=== PATIENT | female | born 1950 | race Hispanic/Latino ===

== ENCOUNTER 2016-11-18 04:40 | Inpatient (IN) | payer OTHER ==
[2016-11-18] VITALS (9 sets, daily range): BP systolic 82–122; BP diastolic 50–64
[~2016-11-18] VITALS: Ht 162.6 cm; Wt 77.1 kg
[~2016-11-18 04:40] MED LIST: COUMADIN 4MG TAB4 MG PO; COUMADIN5 M2 PO; DILAUDID2 MG PO; FOLIC ACID1 M1 PO; GLUCOPHAGE1000 M1 PO; HYDROCORTI2.5 %/30 G TOP; IBUPROFEN800 MG PO; LEVEMIR100 UNIT/1 SC; LEVOTHYROXIN0.025 M1 PO; MACROBID100 MG PO; METFORMIN1000 MG PO; METHOTREXATE2.5 M2 PO; METHOTREXATE2.5 MG PO; NITROFURANTOIN100 MG PO; PANTOPRAZOLE SO40 MG PO; PERCOCET 325 MG1 TAB PO; PREDNISONE5 MG PO; PROCTOCREAM-HC2.5% TOP; SENOKOT NATURA8.6 MG PO; SMZ-TMP 800 MG-1 TAB PO; WARFARIN SODIUM5 MG PO
[2016-11-18] MEDS ORDERED: LISINOPRIL5 M1 PO (04:58)
[2016-11-18] MEDS ORDERED: LEVOTHYROXINE25 MCG PO (04:59)
--- NOTE | 2016-11-18 05:10 | ED GI/GU/ABDOMINAL COMPLAINT ---
History of Present Illness General Chief Complaint: Abdominal Pain/Flank Pain Stated Complaint: ABD PAIN ? KIDNEY STONES Source: patient, old records, EMS Exam Limitations: no limitations Vital Signs & Intake/Output Vital Signs & Intake/Output Vital Signs Date Time Temp Pulse Resp B/P Pulse O2 O2 Flow FiO2 Ox Delivery Rate 11/18 0802 102.0 125 19 130/64 95 Nasal 2.0L Cannula 11/18 0645 100.3 116 24 151/66 98 11/18 0445 97.9 59 22 116/69 100 Room Air Allergies Coded Allergies: Cephalosporins (FACIAL RASH 01/29/16) Penicillins (VOMITING 11/18/16) Reconcile Medications Folic Acid 1 MG TABLET 1 MG PO DAILY FOLIC ACID SUPPLEMENT (Reported) Ibuprofen 600 MG TABLET 1 TAB PO Q6P PRN PAIN with food Insulin Detemir (Levemir) 100 U/ML ED 35 UNITS SC QPM BLOOD SUGAR (Reported) Levothyroxine Sodium 0.025 MG TAB 0.025 MG PO DAILY AC THYROID (Reported) Levothyroxine Sodium 25 MCG TABLET 1 TAB PO DAILY THYROID (Reported) Lisinopril 5 MG TABLET 1 TAB PO DAILY HTN (Reported) METFORMIN HCL (Metformin) 1,000 MG TABLET 1 TAB PO BID DIABETES (Reported) Methotrexate 2.5 MG TABLET 6 TAB PO QW RA (Reported) Oxycodone HCl/Acetaminophen (Percocet 5-325 MG Tablet) 5 MG-325 MG TABLET 1-2 TAB PO Q6P PRN pain Prednisone 5 MG TAB 1 TAB PO BID RA Tamsulosin HCl (Flomax) 0.4 MG CAP.ER.24H 1 CAP PO DAILY kidney stone Warfarin Sodium (Coumadin) 4 MG TAB 1 TAB PO DAILY BLOOD THINNER Warfarin Sodium (Coumadin) 5 MG TABLET 1 TAB PO DAILY PE Triage Note: PER PT SUDEEN ONSET RT FLANK PAIN, AWOKE FROM SLEEP VOMITTED X 1 DENIES ANURIA, PT WITH HX OF KIDNEY STONES. Triage Nurses Notes Reviewed? yes ? n Is pt currently ? No HPI: Patient presents for evaluation of severe left flank pain radiating to the left groin that began suddenly prior to arrival. Patient states it is a constant severe throbbing and sharp pain similar to her prior kidney stone. She denies any associated dysuria. She has felt nauseous and did vomit prior to arrival. Nothing seems to make her feel better. (JONAS THOMPSON,DEANDRE Jett) Past History Travel History Traveled to [place] past 21 day No Medical History Any Pertinent Medical History? see below for history Neurological: NONE EENT: NONE Cardiovascular: NONE Respiratory: pulmonary embolism Gastrointestinal: GERD Hepatic: NONE Renal: KIDNEY STONES Musculoskeletal: rheumatoid arthritis Psychiatric: NONE Endocrine: hypothyroidism, IDDM History of MRSA: No History of VRE: No History of CDIFF: No Surgical History Surgical History: LITHOTRIPSY CARDIAC CATHETERIZATION 11/2014 - IN [place], [place] ( NORMAL) Psychosocial History Services at Home None What is your primary language Japanese Tobacco Use: Never used Family History Hx Contributory? No (JONAS THOMPSON,DEANDRE Jett) Review of Systems Review of Systems Constitutional: Reports: no symptoms. EENTM: Reports: no symptoms. Respiratory: Reports: no symptoms. Cardiovascular: Reports: no symptoms. GI: Reports: see HPI. Genitourinary: Reports: no symptoms. Musculoskeletal: Reports: no symptoms. Skin: Reports: no symptoms. Neurological/Psychological: Reports: no symptoms. Hematologic/Endocrine: Reports: no symptoms. Immunologic/Allergic: Reports: no symptoms. All Other Systems: Reviewed and Negative (JONAS THOMPSON,DEANDRE Jett) Physical Exam Physical Exam Gastrointestinal: see below Comments: Gen.: Well-nourished, well-developed, no acute respiratory distress. Moderate to severe distress secondary to left flank pain. Head: Normocephalic, atraumatic. Eyes: Normal inspection bilaterally Ears: Normal inspection bilaterally Nose: Normal inspection Throat/mouth : Moist mucosa Neck: Supple, full range of motion, no goiter Heart: Regular rate and rhythm, no murmurs rubs or gallops Lungs: Clear to auscultation bilaterally with normal air entry Chest: Nontender Back: Normal range of motion, left CVAT Abdomen: Soft, nontender, nondistended, normal bowel sounds Extremities: Normal range of motion grossly, equal radial pulses, no cyanosis clubbing or edema Neurologic: Cranial nerves grossly intact, speech is clear Skin: warm and dry Psychiatric: Calm, cooperative, no apparent delusions or hallucinations Core Measures ACS in differential dx? No Severe Sepsis Present: No Septic Shock Present: No (DEANDRE VARELA MD) Progress Differential Diagnosis: kidney stone, UTI/pyelo Plan of Care: Orders Procedure Date/time Status LACTIC ACID 11/18 1033 Active LACTIC ACID 11/18 1023 Active Patient Data 11/18 0747 Active FingerStick- Glucose 11/18 0741 Active Admit to inpatient 11/18 0738 Active LACTIC ACID 11/18 0733 Complete LACTIC ACID 11/18 0723 Active EKG 11/18 0705 Active BLOOD CULTURE 11/18 0655 Active BLOOD CULTURE 11/18 0654 Active Add-on Test (ER Only) 11/18 0653 Active Intake & Output 11/18 0652 Active CULTURE,URINE 11/18 0640 Active URINALYSIS 11/18 0509 Complete CBC WITHOUT DIFFERENTIAL 11/18 0509 Complete BASIC METABOLIC PANEL 11/18 0509 Complete Laboratory Tests 11/18/16 0735: Lactic Acid 5.5 H 11/18/16 0735: Anion Gap 15, Estimated GFR > 60, BUN/Creatinine Ratio 14.4, Glucose 125 H, Calcium 8.9 11/18/16 0640: Urine Color YEL, Urine Clarity HAZY H, Urine pH 6.5, Ur Specific [place] 1.015, Urine Protein NEG, Urine Ketones NEG, Urine Nitrite POS H, Urine Bilirubin NEG, Urine Urobilinogen 0.2, Ur Leukocyte Esterase LARGE H, Ur Microscopic SEDIMENT EXAMINED, Urine RBC 3-5, Urine WBC 15-25 H, Ur Epithelial Cells MANY H, Urine Hemoglobin TRACE-INTACT, Urine Glucose NEG 11/18/16 0545: CBC w Diff MAN DIFF ORDERED, RBC 4.35, MCV 93.1, MCH 30.6, RDW 15.0 H, MPV 8.1, Gran % 92.2 H, Lymphocytes % 4.2 L, Monocytes % 3.4, Eosinophils % 0.1, Basophils % 0.1, Absolute Granulocytes 17.3 H, Absolute Lymphocytes 0.8 L, Absolute Monocytes 0.6, Absolute Eosinophils 0, Absolute Basophils 0, Platelet Estimate ADEQUATE, Normocytic RBCs VERIFIED, Normochromic RBCs VERIFIED, PUBS MCHC 32.9 L Microbiology 11/18 0707 BLOOD: Blood Culture - RECD 11/18 652 BLOOD: Blood Culture - CAN Cancelled: DUPLICATE 11/18 652 BLOOD: Blood Culture - CAN Cancelled: DUPLICATE 11/18 0650 BLOOD: Blood Culture - RECD 11/18 639 URINE ROUT: Urine Culture - RECD Diagnostic Imaging: Discussed w/RAD: CT Scan. Radiology Impression: OBSTRUCTING PROXIMAL 5 MM STONE Initial ED EKG: none Comments: 11/18/2016 7:23:31 AM as patient was being prepared for discharge she suddenly began complaining of shaking chills and shortness of breath. Urinalysis is convincing for urinary tract infection and given the fact the patient has an obstructive 5 mm stone I have contacted Dr. Navas will take her to the OR for stenting. The hospitalist is being paged. I've signed out to Dr. Robles. (JONAS THOMPSON,DEANDRE Jett) Departure Departure Condition: Stable Clinical Impression Primary Impression: Renal colic on left side Referrals: ROYCE DRAKE MD (PCP/Family) MOLLY NAVAS MD Additional Instructions: Percocet as needed for pain. Follow-up with your urologist or Dr. Navas on Saturday for reevaluation. Flomax as prescribed. Notify your primary care doctor of this emergency department visit and treatment plan. Return if any concerns or sudden worsening. Please note that there might be incidental findings in your evaluation that are unrelated to the current emergency department visit. Please notify your primary care doctor about this emergency department visit in order to obtain and review all of the testing performed so that these incidental findings can be monitored as needed. If you had an x-ray performed, please understand that some fractures may not be seen on the initial set of x-rays. If your symptoms persist you might need a repeat set of x-rays to check for such a fracture. If you had a laceration evaluated, please understand that foreign bodies such as glass or wood may not be visible to the naked eye or on plain x-rays. If the wound becomes red, swollen, increasingly more painful or if there is any drainage from the wound, please have it reevaluated by a physician for the possibility of a retained foreign body. Thank you for choosing the [facility] Emergency Department for your care. It was a pleasure to serve you today. Deandre Varela M.D. [facility] Departure Forms: Customer Survey General Discharge Information Prescriptions: Current Visit Scripts Oxycodone HCl/Acetaminophen (Percocet 5-325 MG Tablet) 1-2 TAB PO Q6P PRN pain #20 TAB Ibuprofen 1 TAB PO Q6P PRN PAIN #20 TAB with food Tamsulosin HCl (Flomax) 1 CAP PO DAILY #7 CAP Admission Note Spoke With: AURA REY M.D Documentation of Exam: Documentation of any treatments & extenuating circumstances including Concerns Regarding Discharge (functional status, medication knowledge or non-compliance, living conditions, etc.) that warrant an admission rather than observation: Patient has an infected obstructing left ureteral stone. She has a history of diabetes and is at very high risk of overwhelming sepsis and . She requires an emergent stenting to decompress her hydronephrosis and hydroureter. She requires aggressive management with IV antibiotics to prevent deterioration of her clinical condition. She is having severe pain secondary to renal colic and I believe that she would be a poor candidate for outpatient management under the circumstances. I feel she would have great trouble in complying with outpatient treatment plan. She would likely return in worse clinical condition. Given her medical comorbidities I feel she will require a multiple day hospitalization, I feel her treatment and recovery will likely be prolonged and complicated. (JONAS THOMPSON,DEANDRE Jett) Departure Disposition: STILL A PATIENT (HUGH THOMPSON,PASQUALE Kelsey) Critical Care Note Critical Care Note Critical Care Time: 30-74 min (JONAS THOMPSON,DEANDRE Jett)
[2016-11-18 05:54] LABS: ABSOLUTE BASOPHIL COUNT 0 /CUMM (0.0-0.2); ABSOLUTE EOSINOPHIL COUNT 0 /CUMM (0.0-0.7); ABSOLUTE GRANULOCYTE CT 17.3 /CUMM (1.4-6.5); ABSOLUTE LYMPH COUNT 0.8 /CUMM (1.2-3.4); ABSOLUTE MONOCYTE COUNT 0.6 /CUMM (0.10-0.60); BASOPHIL % 0.1 % (0.0-2.0); EOSINOPHIL % 0.1 % (0-5); GRANULOCYTE % 92.2 % (42.2-75.2); HEMATOCRIT 40.5 % (37-47); MEAN CORPUSCULAR HGB 30.6 PG (27.0-31.0); MEAN CORPUSCULAR HGB CONC 32.9 G/DL (33.0-37.0); MEAN CORPUSCULAR VOLUME 93.1 FL (81.0-99.0); MEAN PLATELET VOLUME 8.1 FL (7.4-10.4); PLATELET COUNT 354 /CUMM (130-400); RED BLOOD CELL CT 4.35 /CUMM (4.20-5.40); WHITE BLOOD CELL COUNT 18.8 /CUMM (4.8-10.8)
--- NOTE | 2016-11-18 06:17 | CT SCAN REPORT ---
EXAMINATION: CT ABDOMEN AND PELVIS WITHOUT CONTRAST CLINICAL INFORMATION: Left-sided flank pain. COMPARISON: None TECHNIQUE: Multidetector volumetric imaging was performed from the superior aspect of the liver through the pubic symphysis. Sagittal and coronal reformatted images were obtained on the technologist's workstation. FINDINGS: There is a 5 mm obstructing calculus within the proximal third of the left ureter at the L4 level that results in moderate left-sided hydroureteronephrosis. No additional ureteral calculi. There are innumerable several millimeter calculi throughout the right and left kidneys. Right upper pole renal cyst. 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 There is diffuse hepatic steatosis. There is focal prominence of the left portal vein on image 26 of series 2 suggesting a varix. Limited evaluation of the unenhanced spleen, adrenal glands, gallbladder, and pancreas reveals no definite abnormality. The large and small bowel are normal in caliber without evidence of mechanical obstruction. Sigmoid diverticulosis. No acute diverticulitis. No focal inflammatory changes adjacent to the large or the small bowel. The appendix is normal. There is no free air and there is no intra-abdominal free fluid. No mesenteric or retroperitoneal adenopathy. The pelvic viscera are normal. No pelvic adenopathy. No free fluid within the pelvis. There are no acute osseous abnormalities. No significant soft tissue abnormality. IMPRESSION: - There is a 5 mm obstructing calculus within the proximal third of the left ureter at the L4 level that results in moderate left-sided hydroureteronephrosis. There are innumerable several millimeter calculi throughout the right and left kidneys. - Hepatic steatosis. There is focal prominence of the left portal vein on image 26 of series 2 suggesting a varix. - UIP pattern chronic interstitial lung disease at the lung bases.
[2016-11-18] MEDS ORDERED: PERCOCET 5-3251 EACH PO (06:26)
[2016-11-18] MEDS ORDERED: IBUPROFEN600 M1 PO (06:26)
[2016-11-18] MEDS ORDERED: FLOMAX0.4 M1 PO (06:28)
--- NOTE | 2016-11-18 08:21 | History & Physical ---
ROGER BUCIO 11/18/16 0815: General Information and HPI MD Statement: I have seen and personally examined JEFF CHIN and documented this H&P. The patient is a 66 year old F who presented with a patient stated chief complaint of [complicated UTI]. Source of Information: patient, old records Exam Limitations: no limitations History of Present Illness: Patient is a 66-year-old woman was BIBA w/ CCx of left sided flank pain.Patient has a significant Hx of recurrent UTIs in the past, most recently was in [facility] (03/24-03/25/2015) for it. She was diagnosed w/ an uncomplicated cyctitis and was d/c home on Nitrofurantoin for x7 days. Patient reports a progressive LL ABdx and Left flank pain, which was started yesterday. According to patient this episode was preceded by a few days of increasing frequency of urination and nocturia (3-4 times during night). Patient denies any dysuria or change in color of her urine however she notices changing smell of her urine initially, yesterday, pain is started as sharp/throbbing, intermittent (Q20 min), 4-5 out of 10 on pain scale, without radiation. Patient felt slightly nauseous but did not vomit by that time and she remained afebrile and without shaking chills at the beginning. The frequency and intensity of pain worsened over time and after a few hours patient described a severe 10 out of 10 pain in the left lower quadrant, with much shorter interval between episodes of pain, she started feeling nauseous and vomited clear fluids once or twice, she also became febrile (did not check the temperature) and had episodes of shaking chills and cold sweats. Patient denies any chest pain, shortness of breath, lightheadedness, confusion. She called ambulance as a transfer to emergency room. After initial hydration and IV antibiotics therapy patient had an abdominal pelvic CT scan which showed multiple obstructive and nonobstructive nephrolithiasis in addition to severe leukocytosis and fever. Patient was transferred to operating room for urgent intravitreal stent placements and kidney decompression. Medical team interviewed the patient presents respectively after she was transferred to medical floor from PACU. Of note, she past medical history significant for rheumatoid arthritis on prednisone and MTX, pulmonary embolism on Eliquis, type 2 diabetes mellitus, hypothyroidism. Patient lives with her family. Independent. Current smoker half a pack per day for 50 years no official diagnosis of COPD. According to patient's her daughter has history of recurrent nephrolithiasis. Allergies/Medications Allergies: Coded Allergies: Cephalosporins (FACIAL RASH 01/29/16) Penicillins (VOMITING 11/18/16) Home Med list Apixaban (Eliquis) 5 MG TABLET 1 TAB PO BID PE Folic Acid 1 MG TABLET 1 MG PO DAILY FOLIC ACID SUPPLEMENT (Reported) Ibuprofen 600 MG TABLET 1 TAB PO Q6P PRN PAIN with food Insulin Detemir (Levemir) 100 UNIT/ML VIAL 35 U SC BID DM (Reported) Levothyroxine Sodium 25 MCG TABLET 1 TAB PO DAILY THYROID (Reported) Lisinopril 5 MG TABLET 1 TAB PO DAILY HTN (Reported) METFORMIN HCL (Metformin) 1,000 MG TABLET 1 TAB PO BID DIABETES (Reported) Methotrexate 2.5 MG TABLET 6 TAB PO QW RA (Reported) Oxycodone HCl/Acetaminophen (Percocet 5-325 MG Tablet) 5 MG-325 MG TABLET 1-2 TAB PO Q6P PRN pain Prednisone 5 MG TABLET 2 TAB PO DAILY RA Tamsulosin HCl (Flomax) 0.4 MG CAP.ER.24H 1 CAP PO DAILY kidney stone Compliance With Home Meds: GOOD Past History Travel History Traveled to [place] past 21 day No Medical History Neurological: NONE EENT: NONE Cardiovascular: NONE Respiratory: pulmonary embolism Gastrointestinal: GERD Hepatic: NONE Renal: KIDNEY STONES Musculoskeletal: rheumatoid arthritis Psychiatric: NONE Endocrine: hypothyroidism, IDDM History of MRSA: No History of VRE: No History of CDIFF: No Surgical History Surgical History: LITHOTRIPSY CARDIAC CATHETERIZATION 11/2014 - IN [place], [place] ( NORMAL) Past Family/Social History Psychosocial History Where do you live? Home Who Do You Live With? spouse, child Services at Home: None Primary Language: Slovenian Smoking Status: Current Everyday Smoker ETOH Use: denies use Functional Ability ADLs Independent: dressing, eating, toileting, bathing. Ambulation: independent IADLs Independent: shopping, housework, finances, food prep, telephone, transportation , medication admin. Review of Systems Review of Systems Constitutional: Reports: see HPI. EENTM: Reports: no symptoms. Cardiovascular: Reports: no symptoms. Respiratory: Reports: no symptoms. GI: Reports: no symptoms. Genitourinary: Reports: frequency, nocturia. Denies: see HPI, discharge, dysuria, hematuria, hesitation, pain, urgency. Musculoskeletal: Reports: see HPI, back pain. Denies: gout, joint pain, joint swelling, muscle pain, muscle stiffness, neck pain. Skin: Reports: no symptoms. Neurological/Psychological: Reports: no symptoms. All Other Systems: Reviewed and Negative Exam & Diagnostic Data Last 24 Hrs of Vital Signs/I&O Vital Signs Date Time Temp Pulse Resp B/P Pulse O2 O2 Flow FiO2 Ox Delivery Rate 11/18 1100 97.7 101 22 90/52 95 Room Air 11/18 0802 102.0 125 19 130/64 95 Nasal 2.0L Cannula 11/18 0645 100.3 116 24 151/66 98 11/18 0445 97.9 59 22 116/69 100 Room Air Intake & Output 11/18 1600 11/18 0800 11/18 0000 Intake Total 1000 Output Total 75 Balance 925 Intake, IV 1000 Output, Urine 75 Patient 155 lb Weight Physical Exam General Appearance Alert, Oriented X3, Cooperative, No Acute Distress Skin No Rashes, No Breakdown, No Significant Lesion HEENT Atraumatic, PERRLA, EOMI, mucous membranes are dry Neck No JVD Lymphatic Axillary nl, Cervical nl Cardiovascular Normal S1, Normal S2, No Murmurs Lungs Clear to Auscultation, Normal Air Movement Abdomen left lower quadrant tenderness, no guarding no rebound, left costovertebral angle tenderness Neurological Normal Speech, Strength at 5/5 X4 Ext, Normal Tone Extremities No Cyanosis, No Edema Vascular Normal Pulses, Pulses Symmetrical Last 24 Hrs of Labs/Jarett: Laboratory Tests 11/18/16 1230: Lactic Acid Pending 11/18/16 0735: Lactic Acid 5.5 H 11/18/16 0735: Anion Gap 15, Estimated GFR > 60, BUN/Creatinine Ratio 14.4, Glucose 125 H, Calcium 8.9 11/18/16 0640: Urine Color YEL, Urine Clarity HAZY H, Urine pH 6.5, Ur Specific [place] 1.015, Urine Protein NEG, Urine Ketones NEG, Urine Nitrite POS H, Urine Bilirubin NEG, Urine Urobilinogen 0.2, Ur Leukocyte Esterase LARGE H, Ur Microscopic SEDIMENT EXAMINED, Urine RBC 3-5, Urine WBC 15-25 H, Ur Epithelial Cells MANY H, Urine Hemoglobin TRACE-INTACT, Urine Glucose NEG 11/18/16 0545: CBC w Diff MAN DIFF ORDERED, RBC 4.35, MCV 93.1, MCH 30.6, RDW 15.0 H, MPV 8.1, Gran % 92.2 H, Lymphocytes % 4.2 L, Monocytes % 3.4, Eosinophils % 0.1, Basophils % 0.1, Absolute Granulocytes 17.3 H, Absolute Lymphocytes 0.8 L, Absolute Monocytes 0.6, Absolute Eosinophils 0, Absolute Basophils 0, Platelet Estimate ADEQUATE, Normocytic RBCs VERIFIED, Normochromic RBCs VERIFIED, PUBS MCHC 32.9 L Microbiology 11/18 07 BLOOD: Blood Culture - RECD 11/18 652 BLOOD: Blood Culture - CAN Cancelled: DUPLICATE 11/18 652 BLOOD: Blood Culture - CAN Cancelled: DUPLICATE 11/18 649 BLOOD: Blood Culture - RECD 11/18 639 URINE ROUT: Urine Culture - RECD Assessment/Plan Assessment: 66-year-old woman was admitted for complicated pyelonephritis secondary to obstructive nephrolithiasis. VS: 90/52/101/22 Pertinent Data SOFA: score [address] w/o contrast: There is a 5 mm obstructing calculus within the proximal third of the left ureter at the L4 level that results in moderate left-sided hydroureteronephrosis. WBC: 18.8 NO band BEP: pending LA: 5.5 U/A:WBC, poor quality, Nitrate: + List of Acive probloems 1) sepsis of urinary origin: Patient has low sofa score. However she has significant elevation of white BC and temperature and has low blood pressure which persistently runs a systolic of 90s. The list of differential diagnosis for this patient: Sepsis of urinary origin and or secondary adrenal insufficiency due to prolonged prednisone therapy and or severe dehydration due to increase insensible water loss and poor by mouth intake. * Admit to * Continue IV hydration with normal saline 175 mL per hour X 2 bags; goal to keep mean arterial blood pressure above 70 * Check vital signs every 30 minutes * Stress dose of IV Solu-Cortef 100 mg once and then continue by mouth prednisone 10 mg daily * IV antibiotic ceftriaxone 1 g daily-patient has a history of UTI with Escherichia coli sensitive to ceftriaxone * Follow-up microbiology results blood culture and urine culture * Trends lactic acid initial 5.5 possibly due to sepsis or dehydration or combination of both 2) Diabetes mellitus * Accu-Check * Insulin Levemir 35 units twice a day * Insulin aspart sliding scale medium dose before meals and at bedtime * Carbohydrate consistent diet * Lisinopril 5 mg for kidney protection-indication was held due to hypotension 3) Hypothyroidism- continue her home dose of Synthroid 4)Rheumatoid arthritis-under treatment with by mouth prednisone 10 mg daily and methotrexate 15 mg per week. Prolonged treatment with 10 mg of prednisone might have caused adrenal insufficiency that could explain this patient's hypotension/ contributed to this patient's hypotension. * Continue by mouth prednisone 10 mg daily * Might benefit from a stress dose IV Solu-Cortef 100 mg once-if persistently has low runs of blood pressure 4) history of pulmonary embolism on anticoagulation Eliquis * Eliquis was held for extracorporal shock lithotripsy on Saturday with Dr. Navas * Follow-up with Dr. Navas postprocedure regarding restarting anticoagulation 5) Nicotine dependance- nicotine patch 14 mg q24 DVT prophylaxis-Lovenox 40 units subcutaneous daily Pain pathway mild and severe Patient is a full code As Ranked By This Provider Problem List: 1. Urinary tract infection Core Measures/Miscellaneous Acute Coronary Syndrome ACS Diagnosis: No Cerebrovascular Accident CVA/TIA Diagnosis: No Congestive Heart Failure CHF Diagnosis: No Venous Thromboembolism VTE Risk Factors: Acute medical illness, Age > 40, Obesity, Previous VTE, Smoking VTE Prophylaxis Ordered Inpt: Mech & Pharm No Mech VTE prophylaxis d/t: No contraindications No VTE Pharm Prophylaxis d/t: No contraindications VTE Diagnosis: No VTE Type: NONE VTE Confirmed by (Test): NONE Severe Sepsis Severe Sepsis Present: No Septic Shock Septic Shock Present: No Miscellaneous Documentation Attending Case Discussed With: AURA REY M.D Primary Care Physician: DEVONTE DRAKE MDEETHA Patient 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 Specialists 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 clerk Level of Patient Care: General Medicine Resident Review Statement Resident Statement: examined this patient, discussed with management retail intern, agreed with management retail intern, discussed with family, reviewed EMR data (avail), discussed with nursing , discussed with case mgmt, reviewed images, amended to note AURA REY MD 11/18/16 1422: Attending MD Review Statement Attending Statement Attending MD Statement: examined this patient, discuss w/resident/PA/PRODUCTION TECHNICIAN, agreed w/resident/PA/PRODUCTION TECHNICIAN, reviewed EMR data (avail), discussed with nursing, discussed with case mgmt, amended to note Attending Assessment/Plan: 5 his 6-year-old female with history of recurrent UTIs and nephrolithiasis presented to the emergency room today with complaints of flank pain that began yesterday. Imaging revealed obstructing left renal stone. No significant to the warmer by Dr. Navas and ureteral stent was placed today without complications. Postoperatively however she has become hypotensive with systolic blood pressure is lower 70. Laboratory data shows an elevated white count at mildly elevated lactic acid level. Significant in her history is rheumatoid arthritis for which she is on chronic therapy with prednisone 10 mg daily. It is likely that her current hypotensive episode is a combination of sepsis and adrenal insufficiency. Her history is also significant for pulmonary embolism which is on anticoagulation therapy. She denies any chest or shortness of breath. She is not hypoxic. She denies lower extremity swelling or cramping. Denies nausea vomiting. Denies abdominal pain. Tolerating her meals. On examination she is alert and oriented 3. She does not appear to be in any distress. She has mild left flank tenderness. She has no extremity swelling. Problems: 1. Hypertension; likely secondary to combination of sepsis and adrenal insufficiency. 2. Obstructing left nephrolithiasis. 3. History of rheumatoid arthritis 4. History of pulmonary embolism on long-term and cognition therapy with Eliquis Plan: -Fluid resuscitation with normal saline at 1000 mL an hour for 2 L. -Administer stress dose steroid therapy with Hydrocortisone 100 mg IV 1 now and then 50 mg IV every 8 hours. -If patient remains hypotensive after both would recommend further management in intensive care unit. -Follow blood and urine cultures. -She is plan for the 2 strips he later on this week by the urology service. Recommendations are to hold and cognition therapy for now. Provide DVT prophylaxis with low molecular weight heparin and bilateral compression devices.
--- NOTE | 2016-11-18 09:24 | Cons- Urology ---
General Information and HPI Consulting Request Date of Consult: 11/18/16 Requested By: AURA REY M.D Reason for Consult: obstructed and septic left kidney Source of Information: patient, old records Exam Limitations: no limitations History of Present Illness: 66-year-old woman with hypothyroidism, diabetes, and history of kidney stones. Presented to the emergency room with severe left renal colic. CT scan was performed revealing bilateral kidney stones and an obstructing left ureter stone with hydronephrosis. The patient's pain management was sufficient for discharge home, however, the patient developed spiking temperature chills on discharge. She subsequently removed quires stent and admission for sepsis. Risks benefits and alternatives were discussed with the patient regarding the stent, and subsequent ESWL. She wishes to proceed. Allergies/Medications Allergies: Coded Allergies: Cephalosporins (FACIAL RASH 01/29/16) Penicillins (VOMITING 11/18/16) Home Med List: Folic Acid 1 MG TABLET 1 MG PO DAILY FOLIC ACID SUPPLEMENT (Reported) Ibuprofen 600 MG TABLET 1 TAB PO Q6P PRN PAIN with food Insulin Detemir (Levemir) 100 U/ML ED 35 UNITS SC QPM BLOOD SUGAR (Reported) Levothyroxine Sodium 0.025 MG TAB 0.025 MG PO DAILY AC THYROID (Reported) Levothyroxine Sodium 25 MCG TABLET 1 TAB PO DAILY THYROID (Reported) Lisinopril 5 MG TABLET 1 TAB PO DAILY HTN (Reported) METFORMIN HCL (Metformin) 1,000 MG TABLET 1 TAB PO BID DIABETES (Reported) Methotrexate 2.5 MG TABLET 6 TAB PO QW RA (Reported) Oxycodone HCl/Acetaminophen (Percocet 5-325 MG Tablet) 5 MG-325 MG TABLET 1-2 TAB PO Q6P PRN pain Prednisone 5 MG TAB 1 TAB PO BID RA Tamsulosin HCl (Flomax) 0.4 MG CAP.ER.24H 1 CAP PO DAILY kidney stone Warfarin Sodium (Coumadin) 4 MG TAB 1 TAB PO DAILY BLOOD THINNER Warfarin Sodium (Coumadin) 5 MG TABLET 1 TAB PO DAILY PE Current Medications: Current Medications Sig/Cesar Start time Last Medication Dose Route Stop Time Status Admin Acetaminophen 1,000 MG ONCE ONE 11/18 829 DC N/A 1 UNIT IV 11/18 843 Acetaminophen 0 .STK-MED ONE 11/18 814 DC IV Ketorolac 30 MG ONCE ONE 11/18 514 DC 11/18 Tromethamine IV 11/18 0516 0455 Ketorolac 0 .STK-MED ONE 11/18 0449 DC Tromethamine .ROUTE Morphine Sulfate 6 MG ONCE ONE 11/18 0415 DC 11/18 IV 11/18 0516 0513 Morphine Sulfate 0 .STK-MED ONE 11/18 0514 DC .ROUTE Ondansetron HCl 4 MG ONCE ONE 11/18 0515 DC IV 11/18 0516 Sodium Chloride 1,000 ML BOLUS ONE 11/18 0730 DC 11/18 IV 11/18 0829 0718 Trimethoprim/ 22 ML ONCE ONE 11/18 0715 DC 11/18 Sulfamethoxazole IV 11/18 0844 0754 Dextrose/Water 500 ML Past History Medical History Neurological: NONE EENT: NONE Cardiovascular: NONE Respiratory: pulmonary embolism Gastrointestinal: GERD Hepatic: NONE Renal: KIDNEY STONES Musculoskeletal: rheumatoid arthritis Psychiatric: NONE Endocrine: hypothyroidism, IDDM Surgical History Pertinent Surgical History: LITHOTRIPSY CARDIAC CATHETERIZATION 11/2014 - IN [place], [place] (NORMAL) Psychosocial History Services at Home: None Employment History Retired? yes Review of Systems Review of Systems Constitutional: Reports: chills, fever. EENTM: Denies: no symptoms. Cardiovascular: Denies: no symptoms. Respiratory: Denies: no symptoms. GI: Reports: abdominal pain, bloating. Genitourinary: Denies: no symptoms. Musculoskeletal: Denies: no symptoms. Exam & Diagnostic Data Vital Signs and I&O Vital Signs Date Time Temp Pulse Resp B/P Pulse O2 O2 Flow FiO2 Ox Delivery Rate 11/18 0802 102.0 125 19 130/64 95 Nasal 2.0L Cannula 11/18 0645 100.3 116 24 151/66 98 11/18 0445 97.9 59 22 116/69 100 Room Air Intake & Output 11/18 1600 11/18 0800 11/18 0000 11/17 1600 11/17 0800 11/17 0000 Intake Total 1000 Output Total 75 Balance 925 Intake, IV 1000 Output, Urine 75 Patient 155 lb Weight Physical Exam General Appearance: well developed/nourished Head: atraumatic Eyes: Bilateral: normal appearance. Neck: normal inspection Respiratory: normal breath sounds Cardiovascular: regular rate/rhythm Gastrointestinal: normal bowel sounds Back: CVA tenderness (L) Extremities: normal inspection Reproductive: Normal female genitalia Last 24 Hours of Labs: Laboratory Tests 11/18 11/18 11/18 0783 0241 6683 Chemistry Sodium (137 - 145 mmol/L) 139 Potassium (3.5 - 5.1 mmol/L) 4.6 Chloride (98 - 107 mmol/L) 107 Carbon Dioxide (22 - 30 mmol/L) 18 L Anion Gap (5 - 16) 15 BUN (7 - 17 mg/dL) 13 Creatinine (0.5 - 1.0 mg/dL) 0.9 Estimated GFR (>60 ml/min) > 60 BUN/Creatinine Ratio (7 - 25 %) 14.4 Glucose (65 - 99 mg/dL) 125 H Lactic Acid (0.7 - 2.1 mmol/L) 5.5 H Calcium (8.4 - 10.2 mg/dL) 8.9 Urines Urine Color (YEL,AMB,STR) YEL Urine Clarity (CLEAR) HAZY H Urine pH (5.0 - 8.0) 6.5 Ur Specific [place] (1.001 - 1.035) 1.015 Urine Protein (NEG,<30 MG/DL) NEG Urine Ketones (NEG) NEG Urine Nitrite (NEG) POS H Urine Bilirubin (NEG) NEG Urine Urobilinogen (0.1 - 1.0 EU/dl) 0.2 Ur Leukocyte Esterase (NEG) LARGE H Ur Microscopic SEDIMENT EXAMINED Urine RBC (0 - 5 /HPF) 3-5 Urine WBC (0 - 2 /HPF) 15-25 H Ur Epithelial Cells (NONE,FEW) MANY H Urine Hemoglobin (NEG) TRACE-INTACT Urine Glucose (N MG/DL) NEG 11/18 0545 Hematology CBC w Diff MAN DIFF ORDERED WBC (4.8 - 10.8 /CUMM) 18.8 H RBC (4.20 - 5.40 /CUMM) 4.35 Hgb (12.0 - 16.0 G/DL) 13.3 Hct (37 - 47 %) 40.5 MCV (81.0 - 99.0 FL) 93.1 MCH (27.0 - 31.0 PG) 30.6 RDW (11.5 - 14.5 %) 15.0 H Plt Count (130 - 400 /CUMM) 354 MPV (7.4 - 10.4 FL) 8.1 Gran % (42.2 - 75.2 %) 92.2 H Lymphocytes % (20.5 - 51.1 %) 4.2 L Monocytes % (1.7 - 9.3 %) 3.4 Eosinophils % (0 - 5 %) 0.1 Basophils % (0.0 - 2.0 %) 0.1 Absolute Granulocytes (1.4 - 6.5 /CUMM) 17.3 H Absolute Lymphocytes (1.2 - 3.4 /CUMM) 0.8 L Absolute Monocytes (0.10 - 0.60 /CUMM) 0.6 Absolute Eosinophils (0.0 - 0.7 /CUMM) 0 Absolute Basophils (0.0 - 0.2 /CUMM) 0 Platelet Estimate (ADEQUATE) ADEQUATE Normocytic RBCs VERIFIED Normochromic RBCs VERIFIED PUBS MCHC (33.0 - 37.0 G/DL) 32.9 L Imaging Results: PATIENT: JEFF CHIN PRESENT AGE: 66 PATIENT ACCOUNT NO: [id number] : 49 LOCATION: [facility] ORDERING PHYSICIAN: ANITA MCDANIEL MD SERVICE DATE: 11/18/16 EXAM TYPE: CAT - CT ABD & PELVIS W/O IV CONTRAS EXAMINATION: CT ABDOMEN AND PELVIS WITHOUT CONTRAST CLINICAL INFORMATION: Left-sided flank pain. COMPARISON: None TECHNIQUE: Multidetector volumetric imaging was performed from the superior aspect of the liver through the pubic symphysis. Sagittal and coronal reformatted images were obtained on the technologist's workstation. FINDINGS: There is a 5 mm obstructing calculus within the proximal third of the left ureter at the L4 level that results in moderate left-sided hydroureteronephrosis. No additional ureteral calculi. There are innumerable several millimeter calculi throughout the right and left kidneys. Right upper pole renal cyst. 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 There is diffuse hepatic steatosis. There is focal prominence of the left portal vein on image 26 of series 2 suggesting a varix. Limited evaluation of the unenhanced spleen, adrenal glands, gallbladder, and pancreas reveals no definite abnormality. The large and small bowel are normal in caliber without evidence of mechanical obstruction. Sigmoid diverticulosis. No acute diverticulitis. No focal inflammatory changes adjacent to the large or the small bowel. The appendix is normal. There is no free air and there is no intra-abdominal free fluid. No mesenteric or retroperitoneal adenopathy. The pelvic viscera are normal. No pelvic adenopathy. No free fluid within the pelvis. There are no acute osseous abnormalities. No significant soft tissue abnormality. IMPRESSION: - There is a 5 mm obstructing calculus within the proximal third of the left ureter at the L4 level that results in moderate left-sided hydroureteronephrosis. There are innumerable several millimeter calculi throughout the right and left kidneys. - Hepatic steatosis. There is focal prominence of the left portal vein on image 26 of series 2 suggesting a varix. - UIP pattern chronic interstitial lung disease at the lung bases. Assessment/Plan Assessment/Plan Patient with obstructed left kidney and sepsis./Left stent insertion now. Copies To: PHILIP THOMPSON,MOLLY Consult Acknowledgment - Thank you for your consult request. Attending MD Review Statement Attending Statement Attending MD Statement: examined this patient, discuss w/resident/PA/RELAY CHECKER Attending Assessment/Plan: Left obstructed septic kidney. Stent now.
--- NOTE | 2016-11-18 09:29 | Operative Report ---
Operative/Inv Procedure Report Surgery Date: 11/18/16 Name of Procedure: Cystoscopy. Left stent insertion with fluoroscopy. Pre-Operative Diagnosis: Obstructed septic left kidney. Post-Operative Diagnosis: Obstructed septic left kidney. Estimated Blood Loss: scant Surgeon/Station Mechanic Helper: MD PHILIP, MOLLY-UROLOGY Anesthesia: moderate sedation Complications: None Operative/Procedure Note Note: The patient was taken to the operating room and placed OR table in supine position. Timeout was performed, with the patient awake, in order to confirm procedure, anesthesia, and other pertinent perioperative information. After adequate anesthesia and antibiotics, the patient was then placed lithotomy stirrups, draped and prepped in the usual surgical fashion. A 22 Georgian cystoscope sheath with 30 angle lens was inserted into the urethra, subsequently into the bladder without difficulty. Upon thorough and systematic surveillance, the bladder was noted to be free of tumor free of stone. Both ureteral orifices were in their orthotopic position with clear eflux from the right ureteral orifice. The left orifice was intubated with an open-ended ureteral access catheter. Retrograde pyelogram was gently performed in order to confirm hydronephrosis, and a proximal ureter filling defect consistent with stone, and to map the anatomy of the ureter and kidney using fluoroscopy. The open-ended stent was then removed, and the left orifice was intubated with a 0.035 Glidewire, which was advanced into the left ureter, and renal pelvis with out difficulty. Over this Glidewire, a 4.7 X 20 Bard onlay stent was rail- roaded into the left ureter without difficulty. With the proximal coil visualized on fluoroscopy in the left renal pelvis, and the distal coil in the bladder, the Glidewire was removed, and the stent remained in proper place. Large amount of purulent fluid drained at this point from the left kidney. The bladder was then drained, via the cystoscope, and then the scope was removed without difficulty. The patient tolerated the procedure well was taken to recovery room in satisfactory condition. Discharge Disposition: PACU CC: MOLLY PALACIOS MD
--- NOTE | 2016-11-18 10:13 | RADIOLOGY REPORT ---
EXAMINATION: XR KIDNEYS, URETER, BLADDER CLINICAL INDICATION: Left-sided stent placement. COMPARISON: CT scan of the abdomen and pelvis dated 11/18/2016. TECHNIQUE/FINDINGS: Fluoroscopic equipment was dedicated to the operating room for the performance of a left ureteral stent placement. Single spot film was acquired and is archived in PACS, demonstrating the proximal pigtail of the stent in the left upper quadrant. IMPRESSION: Left ureteral stent placement. Please refer to operative notes for details of the procedure.
[2016-11-18] MEDS ORDERED: PREDNISONE5 M1 PO (12:16)
[2016-11-18] MEDS ORDERED: ELIQUIS5 M1 PO (12:16)
--- NOTE | 2016-11-18 14:22 | Admission Certification ---
Admission Certification Certification Statement - As attending physician, I certify that at the time of - admission, based on clinical presentation, severity of - symptoms, need for further diagnostic testing and - therapeutic interventions, and risk of adverse outcomes - without in-hospital treatment, in my clinical assessment, - this patient requires an acute hospital stay for a minimum - of two nights or longer. I have also considered psychsocial - factors such as support system, advanced age, financial - issues, cognitive issues, and failed out-patient treatments, - past re-admission history, safety of patient, and lack of - compliance as applicable. Specific rationale supporting this admission is: Patient requires IV antibiotic therapy for sepsis.
[2016-11-19 02:09] VITALS: BP 96/48
--- NOTE | 2016-11-19 02:52 | Event Note ---
Event Note Event Note: I was paged that patient's blood pressure is 96/48. So far postoperatively she has got 2 L of normal saline bolus and after that she was on maintenance fluid at 75 mL per hour. Her blood pressure was holding nicely initially but now has started dropping again. Patient is asymptomatic. I just ordered 1 liter of normal saline bolus. Attending was updated. Decision was made to transfer patient to ICU for closer blood pressure monitoring. Stat CBC, coags and lactate were ordered. Patient wants to inform family in the morning. I will call and update family in the morning.
[2016-11-19 03:18] LABS: ABSOLUTE BASOPHIL COUNT 0 /CUMM (0.0-0.2); ABSOLUTE EOSINOPHIL COUNT 0.1 /CUMM (0.0-0.7); BASOPHIL % 0 % (0.0-2.0); GRANULOCYTE % 96.1 % (42.2-75.2); MEAN CORPUSCULAR HGB CONC 33.2 G/DL (33.0-37.0)
[2016-11-19 03:20] VITALS: BP 96/50
[2016-11-19 03:22] LABS: ABSOLUTE GRANULOCYTE CT 39.5 /CUMM (1.4-6.5); ABSOLUTE LYMPH COUNT 1.1 /CUMM (1.2-3.4); ABSOLUTE MONOCYTE COUNT 0.5 /CUMM (0.10-0.60); EOSINOPHIL % 0.1 % (0-5); MEAN CORPUSCULAR HGB 30.9 PG (27.0-31.0); MEAN CORPUSCULAR VOLUME 93.2 FL (81.0-99.0); MEAN PLATELET VOLUME 8.4 FL (7.4-10.4); PLATELET COUNT 316 /CUMM (130-400); RBC DISTRIBUTION WIDTH 15.2 % (11.5-14.5); RED BLOOD CELL CT 3.56 /CUMM (4.20-5.40)
[2016-11-19 03:24] LABS: PT 16.6 SEC (9.4-12.5)
[2016-11-19 03:25] LABS: HEMATOCRIT 33.2 % (37-47); WHITE BLOOD CELL COUNT 41.2 /CUMM (4.8-10.8)
--- NOTE | 2016-11-19 07:39 | Cons- CRCU ---
See Addendum General Information and HPI Consulting Request Date of Consult: 11/19/16 Requested By: Dr Karl Haq Reason for Consult: Urosepsis, hypotension Source of Information: patient, old records History of Present Illness: Patient is a 66-year-old woman was BIBA w/ CCx of left sided flank pain.Patient has a significant Hx of recurrent UTIs in the past, most recently was in [facility] (03/24-03/25/2015) for it. She was diagnosed w/ an uncomplicated cyctitis and was d/c home on Nitrofurantoin for x7 days. Patient reports a progressive LL ABdx and Left flank pain, which was started yesterday. According to patient this episode was preceded by a few days of increasing frequency of urination and nocturia (3-4 times during night). Patient denies any dysuria or change in color of her urine however she notices changing smell of her urine initially, yesterday, pain is started as sharp/throbbing, intermittent (Q20 min), 4-5 out of 10 on pain scale, without radiation. Patient felt slightly nauseous but did not vomit by that time and she remained afebrile and without shaking chills at the beginning. The frequency and intensity of pain worsened over time and after a few hours patient described a severe 10 out of 10 pain in the left lower quadrant, with much shorter interval between episodes of pain, she started feeling nauseous and vomited clear fluids once or twice, she also became febrile (did not check the temperature) and had episodes of shaking chills and cold sweats. Patient denies any chest pain, shortness of breath, lightheadedness, confusion. She called ambulance as a transfer to emergency room. After initial hydration and IV antibiotics therapy patient had an abdominal pelvic CT scan which showed multiple obstructive and nonobstructive nephrolithiasis in addition to severe leukocytosis and fever. Patient was transferred to operating room for urgent intravitreal stent placements and kidney decompression. Medical team interviewed the patient presents respectively after she was transferred to medical floor from PACU. Of note, she past medical history significant for rheumatoid arthritis on prednisone and MTX, pulmonary embolism on Eliquis, type 2 diabetes mellitus, hypothyroidism. Patient lives with her family. Independent. Current smoker half a pack per day for 50 years no official diagnosis of COPD. According to patient's her daughter has history of recurrent nephrolithiasis. Allergies/Medications Allergies: Coded Allergies: Cephalosporins (FACIAL RASH 01/29/16) Penicillins (VOMITING 11/18/16) Home Med List: Apixaban (Eliquis) 5 MG TABLET 1 TAB PO BID PE Folic Acid 1 MG TABLET 1 MG PO DAILY FOLIC ACID SUPPLEMENT (Reported) Ibuprofen 600 MG TABLET 1 TAB PO Q6P PRN PAIN with food Insulin Detemir (Levemir) 100 UNIT/ML VIAL 35 U SC BID DM (Reported) Levothyroxine Sodium 25 MCG TABLET 1 TAB PO DAILY THYROID (Reported) Lisinopril 5 MG TABLET 1 TAB PO DAILY HTN (Reported) METFORMIN HCL (Metformin) 1,000 MG TABLET 1 TAB PO BID DIABETES (Reported) Methotrexate 2.5 MG TABLET 6 TAB PO QW RA (Reported) Oxycodone HCl/Acetaminophen (Percocet 5-325 MG Tablet) 5 MG-325 MG TABLET 1-2 TAB PO Q6P PRN pain Prednisone 5 MG TABLET 2 TAB PO DAILY RA Tamsulosin HCl (Flomax) 0.4 MG CAP.ER.24H 1 CAP PO DAILY kidney stone Review of Systems Review of Systems Constitutional: Reports: no symptoms. EENTM: Reports: no symptoms. Cardiovascular: Reports: no symptoms. Respiratory: Reports: no symptoms. GI: Reports: see HPI, abdominal pain. Genitourinary: Reports: no symptoms. Musculoskeletal: Reports: no symptoms. Skin: Reports: no symptoms. Neurological/Psychological: Reports: no symptoms. Hematologic/Endocrine: Reports: no symptoms. 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 Home Who Do You Live With? spouse, child Services at Home: None Primary Language: Nigerian Smoking Status: Current Everyday Smoker ETOH Use: denies use Functional Ability ADLs Independent: dressing, eating, toileting, bathing. Ambulation: independent IADLs Independent: shopping, housework, finances, food prep, telephone, transportation , medication admin. Exam & Diagnostic Data Last 24 Hrs of Vital Signs/I&O Vital Signs Date Time Temp Pulse Resp B/P Pulse O2 O2 Flow FiO2 Ox Delivery Rate 11/19 0859 96 124/70 11/19 0819 99.9 78 20 130/80 98 Room Air 11/19 0802 101.0 11/19 0635 105.3 11/19 0320 97.8 77 18 96/50 95 Room Air 11/19 0209 98.2 67 20 96/48 96 Room Air 11/18 2337 99.9 11/18 2238 100.8 11/18 2213 100.1 93 20 122/50 94 Room Air 11/18 2112 98.7 86 20 112/60 95 Room Air 11/18 2007 99.6 90 20 100/60 92 Room Air 11/18 1908 106/60 11/18 1804 112/64 11/18 1626 90/56 11/18 1600 82/54 11/18 1417 90 20 82/54 11/18 1409 90/52 Intake & Output 11/19 1600 11/19 0800 11/19 0000 Intake Total 2500 400 Output Total 900 Balance 1600 400 Intake, IV 2400 300 Intake, Oral 100 100 Output, Urine 900 Physical Exam General Appearance: well developed/nourished, no apparent distress, alert, awake , comfortable, overweight Head: atraumatic, normal appearance Eyes: Bilateral: normal appearance, PERRL, EOMI. Ears, Nose, Throat: normal pharynx Neck: normal inspection, supple, full range of motion Respiratory: normal breath sounds, chest non-tender, no respiratory distress Cardiovascular: regular rate/rhythm Peripheral Pulses: 4+ radial (R), 4+ radial (L) Gastrointestinal: normal bowel sounds, soft, non-tender, no CVA tenderness Extremities: normal inspection, normal capillary refill, normal range of motion Neurologic/Psych: grossly intact, normal mentation Skin: intact, normal color, warm/dry Last 48 Hrs of Labs/Jarett: Laboratory Tests 11/19/16 0300: Anion Gap 7, Estimated GFR 50 L, BUN/Creatinine Ratio 15.5, Lactic Acid 1.2, Calcium 8.0 L, Phosphorus 2.8, Magnesium 1.4 L, Albumin 2.2 L, PT 16.6 H, INR 1.59 H, CBC w Diff MAN DIFF ORDERED, RBC 3.56 L, MCV 93.2, MCH 30.9, RDW 15.2 H, MPV 8.4, Gran % 96.1 H, Lymphocytes % 2.6 L, Monocytes % 1.2 L, Eosinophils % 0.1, Basophils % 0 L, Absolute Granulocytes 39.5 H, Segmented Neutrophils 84 H, Band Neutrophils 11 H, Absolute Lymphocytes 1.1 L, Lymphocytes 2 L, Monocytes 2, Absolute Monocytes 0.5, Absolute Eosinophils 0.1, Absolute Basophils 0, Metamyelocytes 1, Platelet Estimate ADEQUATE, Hypochromic- Microcytic 1+, PUBS MCHC 33.2 11/18/16 1230: Lactic Acid 3.9 H 11/18/16 1023: Lactic Acid Cancelled 11/18/16 0735: Lactic Acid 5.5 H 11/18/16 0735: Anion Gap 15, Estimated GFR > 60, BUN/Creatinine Ratio 14.4, Glucose 125 H, Calcium 8.9 11/18/16 0723: Lactic Acid Cancelled 11/18/16 0640: Urine Color YEL, Urine Clarity HAZY H, Urine pH 6.5, Ur Specific [place] 1.015, Urine Protein NEG, Urine Ketones NEG, Urine Nitrite POS H, Urine Bilirubin NEG, Urine Urobilinogen 0.2, Ur Leukocyte Esterase LARGE H, Ur Microscopic SEDIMENT EXAMINED, Urine RBC 3-5, Urine WBC 15-25 H, Ur Epithelial Cells MANY H, Urine Hemoglobin TRACE-INTACT, Urine Glucose NEG 11/18/16 0545: CBC w Diff MAN DIFF ORDERED, RBC 4.35, MCV 93.1, MCH 30.6, RDW 15.0 H, MPV 8.1, Gran % 92.2 H, Lymphocytes % 4.2 L, Monocytes % 3.4, Eosinophils % 0.1, Basophils % 0.1, Absolute Granulocytes 17.3 H, Absolute Lymphocytes 0.8 L, Absolute Monocytes 0.6, Absolute Eosinophils 0, Absolute Basophils 0, Platelet Estimate ADEQUATE, Normocytic RBCs VERIFIED, Normochromic RBCs VERIFIED, PUBS MCHC 32.9 L Assessment/Plan Impression/Plan: 66-year-old female with past medical history of hyperlipidemia, hypertension, hypothyroidism, A arthritis taking daily steroids, history of pulmonary embolism on anticoagulation therapy, nephrolithiasis and recurrent UTI was was initially admitted to the general medicine, and unstable blood pressures and transfer to ICU overnight. She is currently being managed in the ICU for the following issues: #Sepsis of urological origin, from Gram negative rods The patient has recurrent h/o UTI and septic focus, i.e. the calculi. Stent was placed yesterday on the left side, but still needs ESWL soon. Her temperature spiked to 105F earlier today. Her systolic blood pressure has been around 120s above since she came to the ICU and received IV fluid boluses. -Continue watching closely for any change in vital status, mental status. -Continue with IV ceftriaxone, D1 -per attending, ESWL can be postponed for now, given her septic condition. Communicated to Dr Navas and patient accordingly who agree to the plan. -Consider panculture and broadening antibiotic coverage if she spikes fever again with a repeat set of culture and possible CT abd-pelvis to watch for changes of renal system. Also, can change the coverage from ceftriaxone to ciprofloxacin if renal/ perinephric abscess is suspected. -Follow also reports, and titrate antibiotics accordingly. #Rheumatoid arthritis Patient is steroid-dependent, currently receiving IV steroids. -Plan to stop IV steroids and start her on oral prednisone from tomorrow morning. -Pain medications as pain pathway #Diabetes mellitus -Continue insulin sliding scale -Diabetic diet -Accu-Cheks 3 times a day and at bedtime #Hypothyroidism -Continue home medication of levothyroxine #History of pulmonary embolism -Eliquis was placed on hold initially, but after medical consultation, has been restarted. -Eliquis has to be on hold for 3 days before the surgery. #Nicotine dependence -Negative patch 40 mg every 24 hours #DVT prophylaxis -Lovenox #Diet: Diabetic diet #CODE STATUS: Full code Consult Acknowledgment - Thank you for your consult request.
[2016-11-19 08:19] VITALS: BP 130/80
--- NOTE | 2016-11-19 10:12 | PN- Att Addend ---
Attending Addendum Attending Brief Note Patient seen and examined. Following IV hydration blood pressure did improve yesterday. She was transferred to the intensive care unit overnight for close monitoring. She received a total of about 4 L of fluid. Blood pressure is currently in the 120s-130s systolic. She is not tachycardic. She is mentating appropriately. She however continues to be febrile with temperature of 105 earlier on today. Blood cultures are growing gram-negative rods. She denies nausea vomiting. Denies abdominal pain. Vital Signs Date Time Temp Pulse Resp B/P Pulse O2 O2 Flow FiO2 Ox Delivery Rate 11/19 0859 96 124/70 11/19 0819 99.9 78 20 130/80 98 Room Air 11/19 0802 101.0 11/19 0635 105.3 11/19 0320 97.8 77 18 96/50 95 Room Air 11/19 0209 98.2 67 20 96/48 96 Room Air 11/18 2337 99.9 11/18 2238 100.8 11/18 2213 100.1 93 20 122/50 94 Room Air 11/18 2112 98.7 86 20 112/60 95 Room Air 11/18 2008 99.6 90 20 100/60 92 Room Air 11/18 1908 106/60 11/18 1804 112/64 11/18 1626 90/56 11/18 1600 82/54 11/18 1417 90 20 82/54 11/18 1409 90/52 11/18 1100 97.7 101 22 /52 95 Room Air Gen. appearance: Well-developed, not in acute distress Heart: S1-S2 regular Lungs: Good entry bilaterally, clear to auscultation Abdomen: Soft, nontender, no CVA tenderness, normal bowel sounds Extremities, no pedal edema Skin: Intact with no rashes Plan: 1. Septic shock 2. Obstructing nephrolithiasis 3. Rheumatoid arthritis: Steroid-dependent Plan: -Continue antibiotic therapy with IV Rocephin. -Follow-up complete culture results and sensitivity. Tailor antibiotic as indicated. -Downgrade patient to the general medical service for further management. -Due to hydration with half-normal saline at 75 mL an hour. -Taper steroids to prednisone 40 mg orally twice daily starting tomorrow. -Due to sepsis she will require continued inpatient management. Her lithotripsy which was originally scheduled for this week we'll certainly have to be postponed. In view of this I would recommend resuming her anticoagulation with Eliquis. the medication can be discontinued 3 days prior to her lithotripsy. please notify Regino Navas MD of his recommendation.
[2016-11-19 15:59] LABS: ABSOLUTE BASOPHIL COUNT 0 /CUMM (0.0-0.2); ABSOLUTE EOSINOPHIL COUNT 0.2 /CUMM (0.0-0.7); ABSOLUTE GRANULOCYTE CT 28.6 /CUMM (1.4-6.5); ABSOLUTE LYMPH COUNT 1.3 /CUMM (1.2-3.4); ABSOLUTE MONOCYTE COUNT 0.5 /CUMM (0.10-0.60); BASOPHIL % 0.1 % (0.0-2.0); EOSINOPHIL % 0.5 % (0-5); GRANULOCYTE % 93.6 % (42.2-75.2); HEMATOCRIT 36.6 % (37-47); MEAN CORPUSCULAR HGB 30.9 PG (27.0-31.0); MEAN CORPUSCULAR HGB CONC 32.7 G/DL (33.0-37.0); MEAN CORPUSCULAR VOLUME 94.6 FL (81.0-99.0); MEAN PLATELET VOLUME 8.8 FL (7.4-10.4); PLATELET COUNT 338 /CUMM (130-400); RBC DISTRIBUTION WIDTH 15.4 % (11.5-14.5); RED BLOOD CELL CT 3.87 /CUMM (4.20-5.40)
[2016-11-19 16:01] LABS: WHITE BLOOD CELL COUNT 30.6 /CUMM (4.8-10.8)
--- NOTE | 2016-11-19 19:28 | PN- Urology ---
Surgical Brief Attending Note Brief Attending Note: pT WITH SEPSIS STILL RECOVERING; WILL SCHEDULE ESWL AT LATER DATE: NO ESWL ON . CONTINUE CURRENT TX WITH MED.SERVICE
[2016-11-19 19:55] VITALS: BP 98/58
--- NOTE | 2016-11-19 21:12 | CT SCAN REPORT ---
EXAMINATION: CT ABDOMEN AND PELVIS WITH CONTRAST CLINICAL INFORMATION: Fever and chills status post stent placement. COMPARISON: 11/18/2016 TECHNIQUE: Multidetector volumetric imaging was performed of the abdomen and pelvis before and after the IV administration of 95 mL of Optiray 320 intravenous contrast. Sagittal and coronal reformatted images were obtained on the technologist's workstation. DLP: 667 mGy-cm FINDINGS: LUNG BASES: Chronic interstitial lung disease again noted with honeycombing at the lung bases, right greater than left. LIVER, GALLBLADDER, AND BILIARY TREE: The liver is normal in size and shape with uniformly decreased attenuation. No focal hepatic lesion or biliary ductal dilatation is present. The gallbladder is unremarkable with no evidence of radiopaque gallstones, gallbladder wall thickening, or obvious pericholecystic inflammatory changes. PANCREAS: Unremarkable. SPLEEN: Unremarkable. ADRENAL GLANDS: Unremarkable. KIDNEYS AND URETERS: The kidneys are normal in size, shape, and attenuation. The nephrograms are symmetric without striation. Mild bilateral perinephric stranding is noted, increased on the left. There is a left ureteral stent in place, extending from the renal pelvis into the bladder. The previous proximal ureteral calculus has migrated, now seen at the level of the distal ureter. This measures 0.4 cm. Numerous additional bilateral calculi are seen, unchanged from the recent previous study. The largest on the right is seen at the upper pole and measures 0.4 cm, 7 cm from the posterior axillary line. Bilateral renal cysts are again noted. BLADDER: No bladder wall thickening. Gas seen within the bladder lumen is likely associated to recent manipulation. GASTROINTESTINAL TRACT: Small hiatal hernia. The small bowel is unremarkable. No dilated loops of bowel or evidence of obstruction. No colonic wall thickening or inflammatory change. No free air. Minimal stranding extends along the left paracolic gutter. ABDOMINAL WALL: No significant hernia is appreciated. LYMPH NODES: Normal. VASCULAR: Mild atherosclerotic calcifications. PELVIC VISCERA: Prominent uterine fibroid, measuring 5.4 cm. No adnexal mass. OSSEOUS STRUCTURES: No acute or suspicious osseous abnormality. Mild degenerative changes in the spine. Vacuum disc phenomenon at L5-S1. Degenerative changes of both hips, with severe joint space narrowing at the right hip. IMPRESSION: Left ureteral stent now in place with migration of the ureteral calculus to the distal ureter. Numerous bilateral renal calculi are again identified. There is bilateral perinephric stranding, which appears mildly increased at the left kidney. This is nonspecific and could be associated with recent manipulation. The nephrograms are symmetric. No striated nephrogram. Interstitial lung disease again noted consistent with a UIP pattern.
--- NOTE | 2016-11-19 21:20 | Event Note ---
Event Note Event Note: After discussion with Dr. Navas regarding the patient still spiking a fever, he advised to repeat CAT scan with IV contrast to evaluate for any underlying emphysematous pyelonephritis or abscess.
[2016-11-19 21:54] VITALS: BP 128/72
[2016-11-20] VITALS: BP 148/90
[2016-11-20 05:00] VITALS: BP 138/80
[2016-11-20 05:52] LABS: ABSOLUTE BASOPHIL COUNT 0 /CUMM (0.0-0.2); ABSOLUTE EOSINOPHIL COUNT 0.1 /CUMM (0.0-0.7); ABSOLUTE GRANULOCYTE CT 21.9 /CUMM (1.4-6.5); ABSOLUTE LYMPH COUNT 1.2 /CUMM (1.2-3.4); ABSOLUTE MONOCYTE COUNT 0.5 /CUMM (0.10-0.60); BASOPHIL % 0 % (0.0-2.0); EOSINOPHIL % 0.5 % (0-5); GRANULOCYTE % 92.2 % (42.2-75.2); HEMATOCRIT 34.4 % (37-47); MEAN CORPUSCULAR HGB 30.9 PG (27.0-31.0); MEAN CORPUSCULAR HGB CONC 33.1 G/DL (33.0-37.0); MEAN CORPUSCULAR VOLUME 93.4 FL (81.0-99.0); MEAN PLATELET VOLUME 8.9 FL (7.4-10.4); PLATELET COUNT 339 /CUMM (130-400); RBC DISTRIBUTION WIDTH 14.9 % (11.5-14.5); RED BLOOD CELL CT 3.69 /CUMM (4.20-5.40); WHITE BLOOD CELL COUNT 23.7 /CUMM (4.8-10.8)
--- NOTE | 2016-11-20 07:31 | PN- Housestaff ---
Subjective Follow-up For: Sepsis, Pyelonephritis, bilateral urinary tract stones Complaints: fever Subjective: I followed up and examined the patient today. She is resting comfortably in her bed, is alert, oriented, and is not in any apparent distress. She still has pain over her left flank. She did spike a temperature this morning to 102.7, rest of vitals are normal, no issues overnight. She got repeat CAT scan of her abdomen and pelvis per Dr. Navas's suggestion after she spiked a fever yesterday. It was done to rule out any abscess that would have to be drained out immediately. Review of Systems Constitutional: Reports: see HPI, fever. Denies: diaphoresis, malaise, weakness. EENTM: Reports: no symptoms. Cardiovascular: Reports: no symptoms. Respiratory: Reports: no symptoms. Gastrointestinal: Reports: no symptoms. Genitourinary: Reports: see HPI, pain (left flank). Musculoskeletal: Reports: no symptoms. Skin: Reports: no symptoms. Neurological/Psychological: Reports: no symptoms. Hematologic/Endocrine: Reports: no symptoms. Objective Last 24 Hrs of Vital Signs/I&O Vital Signs Date Time Temp Pulse Resp B/P Pulse O2 O2 Flow FiO2 Ox Delivery Rate 11/20 1142 98.4 62 11/20 0958 104 120/60 11/20 0845 99.9 11/20 0844 99.9 11/20 0800 104 24 120/60 96 Room Air 11/20 0800 96 Room Air 11/20 0745 102.7 11/20 0500 96.7 64 18 138/80 Room Air 11/20 0200 98.1 11/20 0000 96 Room Air 11/20 0000 100.7 68 20 148/90 96 Room Air 11/19 2154 97.9 76 128/72 11/19 1955 98.8 84 98/58 11/19 1800 100.5 88 11/19 1729 100.5 11/19 1630 102.4 11/19 1630 102.4 90 Intake & Output 11/20 1600 11/20 0800 11/20 0000 Intake Total 900 1190 1060 Output Total 1300 Balance -400 1190 1060 Intake, IV 300 680 700 Intake, Oral 600 510 360 Output, Urine 1300 Physical Exam General Appearance: Alert, Oriented X3, Cooperative, No Acute Distress Skin: No Rashes, No Breakdown, No Significant Lesion HEENT: Atraumatic, PERRLA, EOMI Neck: Supple, No JVD Lymphatic: Cervical nl Cardiovascular: Regular Rate Lungs: Clear to Auscultation Abdomen: Normal Bowel Sounds, Soft, No Tenderness, left CVA tender Neurological: grossly intact Extremities: No Clubbing, No Cyanosis Vascular: Normal Pulses, Pulses Symmetrical Current Medications: Current Medications Sig/Cesar Start time Last Medication Dose Route Stop Time Status Admin Acetaminophen 1,000 MG Q6P PRN 11/18 1015 AC 11/20 N/A 1 UNIT IV 0745 Apixaban 5 MG BID 11/19 1133 AC 11/20 PO 0958 Ceftriaxone Sodium 1,000 MG DAILY 11/19 1000 AC 11/20 IV 0957 Folic Acid 1 MG DAILY 11/18 1209 AC 11/20 PO 0958 Hydrocortisone 50 MG Q8 11/19 0600 DC 11/19 Sodium Succinate IV 11/19 2300 2205 Insulin Aspart 0 TIDAC 11/18 1700 AC 11/18 SC 1800 Insulin Detemir 17 UNITS BID 11/20 2200 AC 11/20 SC 1018 Insulin Detemir 32 UNITS BID 11/20 1000 DC SC Insulin Detemir 35 UNITS BID 11/18 1212 DC 11/19 SC 2206 Ketorolac 10 MG Q6-PRN PRN 11/18 1015 DC Tromethamine IV Levothyroxine Sodium 0.025 MG DAILY 11/18 1210 AC 11/20 PO 0958 Magnesium Oxide 400 MG ONE ONE 11/20 1130 DC 11/20 PO 11/20 1131 1158 Magnesium Oxide 400 MG ONE ONE 11/19 1315 DC 11/19 PO 11/19 1316 1429 Morphine Sulfate 4 MG Q4P PRN 11/18 1015 AC 11/18 IV 2115 Nicotine 14 MG DAILY 11/19 1000 AC 11/19 TOP 0859 Ondansetron HCl 4 MG Q6P PRN 11/18 1015 AC IV Polyethylene Glycol 17 GM DAILY PRN 11/20 0915 AC 11/20 PO 1015 Potassium Chloride 40 MEQ ONCE ONE 11/20 1130 DC 11/20 PO 11/20 1131 1158 Prednisone 40 MG DAILY 11/21 1000 AC PO Prednisone 40 MG BID 11/20 1000 AC 11/20 PO 11/20 2201 0958 Senna/Docusate Sodium 1 TAB DAILY 11/20 1000 AC 11/20 PO 1015 Sodium Chloride 1,000 ML Q13H 11/19 2300 DC 11/19 IV 2334 Sodium Chloride 1,000 ML Q13H 11/19 1330 DC 11/19 IV 1431 Tamsulosin HCl 0.4 MG DAILY 11/18 1216 AC 11/20 PO 0958 Last 24 Hrs of Lab/Jarett Results Last 24 Hrs of Labs/Mics: Laboratory Tests 11/20/16 0430: Anion Gap 9, Estimated GFR > 60, BUN/Creatinine Ratio 14.4, Magnesium 1.8, CBC w Diff MAN DIFF ORDERED, RBC 3.69 L, MCV 93.4, MCH 30.9, RDW 14.9 H, MPV 8.9, Gran % 92.2 H, Lymphocytes % 5.0 L, Monocytes % 2.3, Eosinophils % 0.5, Basophils % 0 L, Absolute Granulocytes 21.9 H, Absolute Lymphocytes 1.2, Absolute Monocytes 0.5, Absolute Eosinophils 0.1, Absolute Basophils 0, Platelet Estimate ADEQUATE, Normocytic RBCs VERIFIED, Normochromic RBCs VERIFIED, PUBS MCHC 33.1 11/19/16 1530: CBC w Diff MAN DIFF ORDERED, RBC 3.87 L, MCV 94.6, MCH 30.9, RDW 15.4 H, MPV 8.8, Gran % 93.6 H, Lymphocytes % 4.3 L, Monocytes % 1.5 L, Eosinophils % 0.5 , Basophils % 0.1, Absolute Granulocytes 28.6 H, Segmented Neutrophils 84 H, Band Neutrophils 7 H, Absolute Lymphocytes 1.3, Lymphocytes 6 L, Monocytes 2, Absolute Monocytes 0.5, Eosinophils 1, Absolute Eosinophils 0.2, Absolute Basophils 0, Platelet Estimate VERIFIED BY SMEAR, Normocytic RBCs VERIFIED, Normochromic RBCs VERIFIED, PUBS MCHC 32.7 L, Fld Total RBCs Counted 100 Microbiology 11/19 1739 BLOOD: Blood Culture - RECD 11/19 1739 BLOOD: Blood Culture - RECD Assessment/Plan Assessment: 66-year-old female with past medical history of hyperlipidemia, hypertension, hypothyroidism, A arthritis taking daily steroids, history of pulmonary embolism on anticoagulation therapy, nephrolithiasis and recurrent UTI was was initially admitted to the general medicine, and unstable blood pressures and transfer to ICU overnight. She is currently being managed in the ICU (as a general medicine floor hold patient) for the following issues: #Sepsis of urological origin, from Gram negative rods The patient has recurrent h/o UTI and septic focus, i.e. the calculi. Stent was placed yesterday on the left side, but still needs ESWL soon. Her temperature spiked to 105F on 11/19 and 102 on 11/20. Her systolic blood pressure has been around 120s above since she came to the ICU and received IV fluid boluses. -Continue watching closely for any change in vital status, mental status. -Continue with IV ceftriaxone, second day today. Will see the progress with this abx before switching it. -ESWL has been postponed for now -Consider panculture and broadening antibiotic coverage if she spikes fever again with a repeat set of culture. Also, can change the coverage from ceftriaxone to ciprofloxacin if renal/ perinephric abscess is suspected. -Follow also reports, and titrate antibiotics accordingly. #Rheumatoid arthritis Patient is steroid-dependent, currently receiving IV steroids. -Stopped IV steroids, and started oral prednisone, 40 mg twice a day today and once daily dosing from tomorrow onwards to taper -Pain medications as pain pathway #Diabetes mellitus -Continue insulin sliding scale -Diabetic diet -Accu-Cheks 3 times a day and at bedtime #Hypothyroidism -Continue home medication of levothyroxine #History of pulmonary embolism -Eliquis was placed on hold initially, but after medical consultation, has been restarted. 11/19/16 -Eliquis has to be held for 3 days before the surgery. #Nicotine dependence -Nicotine patch 40 mg every 24 hours #DVT prophylaxis -Lovenox #Diet: Diabetic diet #CODE STATUS: Full code Problem List: 1. Sepsis 2. Pyelonephritis 3. Rheumatoid arteritis 4. Nephrolithiasis 5. Diabetes mellitus 6. Hypothyroidism 7. History of pulmonary embolism 8. Nicotine dependence Pain Ratin Pain Location: lower abd when present Pain Goal: Pain 4 or less Pain Plan: prn Tomorrow's Labs & Rationales: CBC, BEP, Mg, to follow up on sepsis, and dyselectrolytemia, hypomagnesemia Tomorrow's Labs & Rationales: CBC, BEP, Mg, to follow up on sepsis, and dyselectrolytemia, hypomagnesemia
[2016-11-20 08:00] VITALS: BP 120/60
--- NOTE | 2016-11-20 13:08 | PN- Att Addend ---
Attending Addendum Attending Brief Note Patient seen and examined. Resting comfortably not in acute distress. She continues to spike fever however she remains hemodynamically stable. Urine cultures growing Escherichia coli sensitive to Rocephin which she has been receiving. Repeat CT scan on yesterday to rule out abscess showed bilateral perinephric stranding which appears mildly of the left kidney. Findings are noted to be nonspecific and could be associated with recent manipulation. She denies nausea vomiting. Denies abdominal pain. she reports some flank pain on and off. She denies any bowel movement since hospitalization. Vital Signs Date Time Temp Pulse Resp B/P Pulse O2 O2 Flow FiO2 Ox Delivery Rate 11/20 1142 98.4 62 11/20 0958 104 120/60 11/20 0845 99.9 11/20 0844 99.9 11/20 0800 104 24 120/60 96 Room Air 11/20 0800 96 Room Air 11/20 0745 102.7 11/20 0500 96.7 64 18 138/80 Room Air 11/20 0200 98.1 11/20 0000 96 Room Air 11/20 0000 100.7 68 20 148/90 96 Room Air 11/19 2154 97.9 76 128/72 11/19 1955 98.8 84 98/58 11/19 1800 100.5 88 11/19 1729 100.5 11/19 1630 102.4 11/19 1630 102.4 90 Gen. appearance: Well-developed Heart: S1-S2 regular Lungs: Good entry bilaterally, clear to auscultation Abdomen: Soft, nontender with normal bowel sounds, no pain Extremities: No pedal edema Problems: 1. Sepsis; secondary to gram-negative UTI and bacteremia 2. Nephrolithiasis status post stent placement 3. Rheumatoid arthritis 4. Insulin-dependent diabetes mellitus Plan: -Continue IV antibiotic therapy with Rocephin. Follow-up culture identification and sensitivity. -Discontinue IV fluids. -Begin bowel regimen to prevent opioid-induced constipation. -Continue her home insulin regimen and monitor no blood glucose levels. -Taper steroids to 40 mg orally daily prednisone -Mobilize patient. Transfer to the general medical floor.
[2016-11-20 16:00] VITALS: BP 128/74
[2016-11-20 22:00] VITALS: BP 130/80
[2016-11-21 05:39] LABS: ABSOLUTE BASOPHIL COUNT 0 /CUMM (0.0-0.2); ABSOLUTE EOSINOPHIL COUNT 0 /CUMM (0.0-0.7); ABSOLUTE GRANULOCYTE CT 12.2 /CUMM (1.4-6.5); ABSOLUTE LYMPH COUNT 0.8 /CUMM (1.2-3.4); ABSOLUTE MONOCYTE COUNT 0.2 /CUMM (0.10-0.60); BASOPHIL % 0 % (0.0-2.0); EOSINOPHIL % 0 % (0-5); HEMATOCRIT 37.2 % (37-47); MEAN CORPUSCULAR HGB 30.3 PG (27.0-31.0); MEAN CORPUSCULAR HGB CONC 32.7 G/DL (33.0-37.0); MEAN CORPUSCULAR VOLUME 92.7 FL (81.0-99.0); PLATELET COUNT 391 /CUMM (130-400); RBC DISTRIBUTION WIDTH 14.9 % (11.5-14.5); RED BLOOD CELL CT 4.02 /CUMM (4.20-5.40); WHITE BLOOD CELL COUNT 13.2 /CUMM (4.8-10.8)
[2016-11-21 06:21] LABS: GRANULOCYTE % 92.1 % (42.2-75.2)
--- NOTE | 2016-11-21 07:03 | PN- Housestaff ---
NATIVIDAD THOMPSON,GRAYSON 11/21/16 0703: Subjective Follow-up For: Sepsis, Pyelonephritis, bilateral urinary tract stones Complaints: no complaints Subjective: I followed up and examined the patient today. She is resting comfortably in her bed, is alert, oriented and is not in any apparent distress. See does not have any complaints overnight, and no issues reported from the nursing staff either. Review of Systems Constitutional: Reports: no symptoms. Cardiovascular: Reports: no symptoms. Respiratory: Reports: no symptoms. Gastrointestinal: Reports: no symptoms. Genitourinary: Reports: no symptoms. Objective Last 24 Hrs of Vital Signs/I&O Vital Signs Date Time Temp Pulse Resp B/P Pulse O2 O2 Flow FiO2 Ox Delivery Rate 11/21 1600 98.0 64 120/70 11/21 1600 95 Room Air 11/21 08 95 Room Air 11/21 08 96.7 62 18 126/68 95 Room Air 11/20 2200 98.5 63 20 130/80 97 Room Air Intake & Output 11/21 1600 11/21 0800 11/21 0000 Intake Total 800 240 240 Output Total 600 400 Balance 800 -360 -160 Intake, Oral 800 240 240 Output, Urine 600 400 Physical Exam General Appearance: Alert, Oriented X3, Cooperative, No Acute Distress Other Physical Findings: Skin: No Rashes, No Breakdown, No Significant Lesion HEENT: Atraumatic, PERRLA, EOMI Neck: Supple, No JVD Lymphatic: Cervical nl Cardiovascular: Regular Rate Lungs: Clear to Auscultation Abdomen: Normal Bowel Sounds, Soft, no more tender CVA Neurological: grossly intact Extremities: No Clubbing, No Cyanosis Vascular: Normal Pulses, Pulses Symmetrical Current Medications: Current Medications Sig/Cesar Start time Last Medication Dose Route Stop Time Status Admin Acetaminophen 1,000 MG Q6P PRN 11/18 1015 AC 11/20 N/A 1 UNIT IV 0745 Apixaban 5 MG BID 11/19 1133 AC 11/21 PO 1007 Ceftriaxone Sodium 1,000 MG DAILY 11/19 1000 AC 11/21 IV 1004 Folic Acid 1 MG DAILY 11/18 1209 AC 11/21 PO 1007 Insulin Aspart 0 TIDAC 11/18 1700 AC 11/21 SC 1648 Insulin Detemir 35 UNITS BID 11/21 1000 AC 11/21 SC 1008 Insulin Detemir 17 UNITS BID 11/20 2200 DC 11/20 SC 2136 Levothyroxine Sodium 0.025 MG DAILY 11/18 1210 AC 11/21 PO 1007 Morphine Sulfate 4 MG Q4P PRN 11/18 1015 AC 11/21 IV 0445 Nicotine 14 MG DAILY 11/19 1000 AC 11/19 TOP 0859 Ondansetron HCl 4 MG Q6P PRN 11/18 1015 AC IV Polyethylene Glycol 17 GM DAILY PRN 11/20 0915 AC 11/20 PO 1015 Prednisone 40 MG DAILY 11/21 1000 AC 11/21 PO 1007 Prednisone 40 MG BID 11/20 1000 DC 11/20 PO 11/20 2201 2137 Senna/Docusate Sodium 1 TAB DAILY 11/20 1000 AC 11/21 PO 1007 Tamsulosin HCl 0.4 MG DAILY 11/18 1216 AC 11/21 PO 1007 Last 24 Hrs of Lab/Jarett Results Last 24 Hrs of Labs/Mics: Laboratory Tests 11/21/16 0430: Anion Gap 10, Estimated GFR > 60, BUN/Creatinine Ratio 20.0, Magnesium 1.9, CBC w Diff NO MAN DIFF REQ, RBC 4.02 L, MCV 92.7, MCH 30.3, RDW 14.9 H, MPV 9.0, Gran % 92.1 H, Lymphocytes % 6.1 L, Monocytes % 1.8, Eosinophils % 0, Basophils % 0 L, Absolute Granulocytes 12.2 H, Absolute Lymphocytes 0.8 L, Absolute Monocytes 0.2, Absolute Eosinophils 0, Absolute Basophils 0, PUBS MCHC 32.7 L Assessment/Plan Assessment: 66-year-old female with past medical history of hyperlipidemia, hypertension, hypothyroidism, A arthritis taking daily steroids, history of pulmonary embolism on anticoagulation therapy, nephrolithiasis and recurrent UTI was was initially admitted to the general medicine, and unstable blood pressures and transfer to ICU overnight. She is currently being managed in the ICU (as a general medicine floor hold patient) for the following issues: #Sepsis of urological origin, from Gram negative rods The patient has recurrent h/o UTI and septic focus, i.e. the calculi. Stent was placed yesterday on the left side, but still needs ESWL soon. Her temperature spiked to 105F on 11/19 and 102 on 11/20. Her systolic blood pressure has been around 120s above since she came to the ICU and received IV fluid boluses. -Continue watching closely for any change in vital status, mental status. -Continue with IV ceftriaxone, third day today. Culture is sensitive to CTX. If she remains afebrile for the next 24 hours, and be discharged in the morning with cefpodoxime for the next 10 days, totaling antibiotics for 14 days. -ESWL has been postponed for now #Rheumatoid arthritis Patient is steroid-dependent, currently receiving IV steroids. -Started oral prednisone yesterday, 40 mg once daily and taper per attending's suggestion. She is to visit her PCP before she runs out of steroids, if possible within a week of her dischargte. -Pain medications as pain pathway #Diabetes mellitus -Continue insulin sliding scale and home dose of insulin -Diabetic diet -Accu-Cheks 3 times a day and at bedtime #Hypothyroidism -Continue home medication of levothyroxine #History of pulmonary embolism -Eliquis was placed on hold initially, but after medical consultation, has been restarted. 11/19/16 -Eliquis has to be held for 3 days before the surgery. #Nicotine dependence -Nicotine patch 40 mg every 24 hours #DVT prophylaxis -Lovenox #Diet: Diabetic diet #CODE STATUS: Full code Problem List: 1. Pyelonephritis 2. Renal colic on left side 3. Nephrolithiasis 4. Diabetes mellitus 5. Hypothyroidism 6. Rheumatoid arteritis 7. History of pulmonary embolism Pain Ratin Pain Location: - Pain Goal: Remain pain free Pain Plan: prn meds in Tomorrow's Labs & Rationales: none CANDIDO THOMPSON,AURA 11/21/16 1126: Attending MD Review Statement Attending Statement Attending MD Statement: examined this patient, discuss w/resident/PA/GRIPPER ATTACHER, agreed w/resident/PA/GRIPPER ATTACHER, reviewed EMR data (avail), discussed with nursing, discussed with case mgmt, amended to note Attending Assessment/Plan: Patient seen and examined. Sitting up comfortably in chair not in acute distress. Denies nausea vomiting. Denies abdominal pain. She has been afebrile overnight and remains hemodynamically stable. Urine cultures from admission are growing Escherichia coli sensitive to Rocephin. Blood culture from admission are growing similar organism in one set however the second set of blood culture is growing diphtheroids. This is likely contamination. She is afebrile and her white cell count is trending down nicely with tip off steroid therapy. Glucose levels on the lower side yesterday morning. She denies any episodes of hypoglycemia at home on her routine insulin regimen. She has been on her routine insulin regimen here in the hospital and has not required any significant sliding scale coverage. She reports that her appetite has been fair while here in the hospital. Recommendations: -Continue IV Rocephin today. If patient remains afebrile overnight she may be discharged home on Vantin 200 mg orally twice daily to complete a total of 14 days of therapy. -I would recommend continuing her on her home dose of insulin with close monitoring of her glucose levels. Recommended bedtime snack to prevent nighttime and in the morning hypoglycemia. -Continue anticoagulation therapy. Patient should coordinate with Regino Navas MD as an outpatient regarding timing of lithotripsy. She should hold her anticoagulation therapy 3 days prior to the procedure.
[2016-11-21 08:00] VITALS: BP 126/68
--- NOTE | 2016-11-21 09:50 | Patient Discharge Instructions ---
Discharge Instructions General Discharge Information You were seen/treated for: Sepsis, secondary to pyelonephritis, gram-negative UTI Special Instructions: Please visited Dr. Navas within 1 week's time. You need to schedule appointment for ESWL procedure. Your blood thinner Eliquis must be held for at least 3 days prior to the surgery. Please visit Dr. Stout, your Primary care physician within one week's time to prepare you for surgert, especially about blood thinner dosage. Please fix an appointment for endocrinology (diabetes doctor) Dr Kyle as soon as possible after getting discharged. Since you are getting frequent low blood sugar levels in the morning, please do not skip dinners at all. Return to emergency if you have severe flank pain, high fever, abdominal pain, nausea, vomitting. Diet Continue normal diet: No Recommended Diet: Diabetic Activity Full Activity/No Limits: No Activity Self Limited: Yes Acute Coronary Syndrome Inclusion Criteria At DC or during hospital stay patient has or had the following: ACS DIAGNOSIS No Discharge Core Measures Meds if any: Prescribed or Continued at Discharge Meds if any: NOT Prescribed or Continued at Discharge Congestive Heart Failure Inclusion Criteria At DC or during hospital stay patient has or had the following: CHF DIAGNOSIS No Discharge Core Measures Meds if any: Prescribed or Continued at Discharge Meds if any: NOT Prescribed or Continued at Discharge Cerebrovascular accident Inclusion Criteria At DC or during hospital stay patient has or had the following: CVA/TIA Diagnosis No Discharge Core Measures Meds if any: Prescribed or Continued at Discharge Meds if any: NOT Prescribed or Continued at Discharge Venous thromboembolism Inclusion Criteria VTE Diagnosis No VTE Type NONE VTE Confirmed by (Test) NONE Discharge Core Measures - Per Current guidelines, there needs to be overlap - treatment for the first 5 days of Warfarin therapy. - If discharged on Warfarin prior to 5 days of - overlap therapy, the patient will need to be - assessed for post discharge needs including - *Post discharge parental anticoagulation - *Warfarin and/or parental anticoagulation education - *Follow up date to check INR post discharge At least 5 days overlap therapy as Inpatient No Meds if any: Prescribed or Continued at Discharge Note: Overlap Therapy is Warfarin and Anticoagulant Meds if any: NOT Prescribed or Continued at Discharge
[2016-11-21 16:00] VITALS: BP 120/70
[2016-11-21] MEDS ORDERED: SENNA PLUS TAB1 EACH PO (20:37)
[2016-11-21] MEDS ORDERED: PREDNISONE10 M2 PO (20:42)
[2016-11-21] MEDS ORDERED: CEFPODOXIME PR200 M2 PO (21:31)
[2016-11-22] VITALS: BP 130/88
--- NOTE | 2016-11-22 09:53 | Discharge Summary ---
Visit Information Visit Dates Admission Date: 11/18/16 Discharge Date: 11/22/16 Hospital Course Course Attending Physician: AURA REY M.D Primary Care Physician: ROYCE STOUT MD Consulting Request: Consulting Specialty: Urology Consulting Physician: Regino Navas MD Reason for Consult: obstructing left-sided urinary tract stone Hospital Course: Ms France is a pleasant 66-year-old female with past medical history of hyperlipidemia, hypertension, hypothyroidism, rheumatoid arthritis taking daily steroids, with history of pulmonary embolism on anticoagulation therapy, nephrolithiasis and recurrent UTI, was was initially admitted to the general medicine floor for sepsis of urological origin. After admission, due to unstable blood pressure and the need for closer monitoring, she was transferred to ICU. She was managed in the ICU for the following issues: #Sepsis of urological origin, from Gram negative rods The patient has recurrent h/o UTI and septic focus, i.e. b/l calculi. Stent was placed on the left side, with plan to go for ESWL. Her temperature spiked to 105 was postponed until she her infection is cleared. She was treated with IV fluids and IV ceftriaxone for E coli for four days. She has remained afebrile for more than 48 hours and does not have CVA pain anymore. She was discharged today with PO cefpodoxime for the next 10 days, totaling antibiotics for 14 days. #B/l urinary tract stones with stent placed on left side Initial plan for ESWL has been postponed for now as mentioned above. She has been provided with Urology referral with Dr Regino Navas for possible ESWL soon. #Rheumatoid arthritis Patient is steroid-dependent, initially received IV steroids and later changed to PO Prednisone. She has been disharged on tapering dose of Prdnisone and needs to be on daily dose as maintenance. #Diabetes mellitus She was managed with Insulin sliding scale in the hospital. Her blood sugar was under control, except for two morning fasting samples. She had not had full dinner the nights before. She was discharged on home regimen of diabetes meds and a referral to comic illustrator with counseling about hypoglycemia and the need to eat adequately and not to skip meals. She understands the situation and has agreed to the plan. #Hypothyroidism -Continued home medication of levothyroxine #History of pulmonary embolism -Eliquis was held initially for possible ESWL, but after medical consultation, has been restarted. 11/19/16. Eliquis has to be held for 3 days before the surgery. She understands the situation and has agreed to the plan. She has to get the date for ESWL from Urology services. #Nicotine dependence -Nicotine patch 40 mg every 24 hours was provided. Need for smoking cessation was discussed. #DVT prophylaxis was provided with Eliquis. #She was on Diabetic diet during her stay. #She holds a full code status. On discharge, she is alert, oriented, comfortable with stable vital signs. Medications and follow-up has been explained to her. Complications: Hypovolemic shock, responsive to IV fluids bolus Allergies: Coded Allergies: Cephalosporins (FACIAL RASH 01/29/16) Penicillins (VOMITING 11/18/16) Significant Procedures: Cystoscopy and left stent insertion with fluoroscopy done on 11/18/2016 due to obstructed septic left kidney by Dr. Regino Navas, without complication. Pertinent Lab Results: Laboratory Tests 11/21/16 0430: Anion Gap 10, Estimated GFR > 60, BUN/Creatinine Ratio 20.0, Magnesium 1.9, CBC w Diff NO MAN DIFF REQ, RBC 4.02 L, MCV 92.7, MCH 30.3, RDW 14.9 H, MPV 9.0, Gran % 92.1 H, Lymphocytes % 6.1 L, Monocytes % 1.8, Eosinophils % 0, Basophils % 0 L, Absolute Granulocytes 12.2 H, Absolute Lymphocytes 0.8 L, Absolute Monocytes 0.2, Absolute Eosinophils 0, Absolute Basophils 0, PUBS MCHC 32.7 L 11/20/16 0430: Anion Gap 9, Estimated GFR > 60, BUN/Creatinine Ratio 14.4, Magnesium 1.8, CBC w Diff MAN DIFF ORDERED, RBC 3.69 L, MCV 93.4, MCH 30.9, RDW 14.9 H, MPV 8.9, Gran % 92.2 H, Lymphocytes % 5.0 L, Monocytes % 2.3, Eosinophils % 0.5, Basophils % 0 L, Absolute Granulocytes 21.9 H, Absolute Lymphocytes 1.2, Absolute Monocytes 0.5, Absolute Eosinophils 0.1, Absolute Basophils 0, Platelet Estimate ADEQUATE, Normocytic RBCs VERIFIED, Normochromic RBCs VERIFIED, PUBS MCHC 33.1 11/19/16 0300: Anion Gap 7, Estimated GFR 50 L, BUN/Creatinine Ratio 15.5, Lactic Acid 1.2, Calcium 8.0 L, Phosphorus 2.8, Magnesium 1.4 L, Albumin 2.2 L, PT 16.6 H, INR 1.59 H, CBC w Diff MAN DIFF ORDERED, RBC 3.56 L, MCV 93.2, MCH 30.9, RDW 15.2 H, MPV 8.4, Gran % 96.1 H, Lymphocytes % 2.6 L, Monocytes % 1.2 L, Eosinophils % 0.1, Basophils % 0 L, Absolute Granulocytes 39.5 H, Segmented Neutrophils 84 H, Band Neutrophils 11 H, Absolute Lymphocytes 1.1 L, Lymphocytes 2 L, Monocytes 2, Absolute Monocytes 0.5, Absolute Eosinophils 0.1, Absolute Basophils 0, Metamyelocytes 1, Platelet Estimate ADEQUATE, Hypochromic- Microcytic 1+, PUBS MCHC 33.2 11/18/16 1230: Lactic Acid 3.9 H 11/18/16 1023: Lactic Acid Cancelled 11/18/16 0735: Lactic Acid 5.5 H 11/18/16 0735: Anion Gap 15, Estimated GFR > 60, BUN/Creatinine Ratio 14.4, Glucose 125 H, Calcium 8.9 11/18/16 0723: Lactic Acid Cancelled 11/18/16 0640: Urine Color YEL, Urine Clarity HAZY H, Urine pH 6.5, Ur Specific [place] 1.015, Urine Protein NEG, Urine Ketones NEG, Urine Nitrite POS H, Urine Bilirubin NEG, Urine Urobilinogen 0.2, Ur Leukocyte Esterase LARGE H, Ur Microscopic SEDIMENT EXAMINED, Urine RBC 3-5, Urine WBC 15-25 H, Ur Epithelial Cells MANY H, Urine Hemoglobin TRACE-INTACT, Urine Glucose NEG 11/18/16 0545: CBC w Diff MAN DIFF ORDERED, RBC 4.35, MCV 93.1, MCH 30.6, RDW 15.0 H, MPV 8.1, Gran % 92.2 H, Lymphocytes % 4.2 L, Monocytes % 3.4, Eosinophils % 0.1, Basophils % 0.1, Absolute Granulocytes 17.3 H, Absolute Lymphocytes 0.8 L, Absolute Monocytes 0.6, Absolute Eosinophils 0, Absolute Basophils 0, Platelet Estimate ADEQUATE, Normocytic RBCs VERIFIED, Normochromic RBCs VERIFIED, PUBS MCHC 32.9 L Repeat CAT scan of abdomen and pelvis done on 11/19/2016: IMPRESSION: Left ureteral stent now in place with migration of the ureteral calculus to the distal ureter. Numerous bilateral renal calculi are again identified. There is bilateral perinephric stranding, which appears mildly increased at the left kidney. This is nonspecific and could be associated with recent manipulation. The nephrograms are symmetric. No striated nephrogram. Interstitial lung disease again noted consistent with a UIP pattern. DICTATED BY: ANDREI CHUNG MD DATE/TIME DICTATED:11/19/162100 FILM RENTAL CLERK:LUIS CARLOS DATE/TIME TRANSCRIBED:11/19/162100 KUB x-ray done after left-sided stent placement , x-ray date 11/18/2016: IMPRESSION: Left ureteral stent placement. Please refer to operative notes for details of the procedure. DICTATED BY: LUCI THOMPSON,BALA Cook DATE/TIME DICTATED:11/18/161007 FILM RENTAL CLERK:LUIS CARLOS DATE/TIME TRANSCRIBED:11/18/161007 Disposition Summary Disposition Principal Diagnosis: Sepsis of urological origin, pyelonephritis Symptomatic UTI and bacteremia with Escherichia coli (Gram-negative eder) Bilateral multiple urinary tract stones Hydronephrosis on the left side due to obstructing urinary tract stone Status post stent placement on left ureter Additional Diagnosis: Hypertension, diabetes mellitus, hyperlipidemia, rheumatoid arthritis taking daily steroids, history of pulmonary embolism on anticoagulation taking Eliquis, hypothyroidism, bilateral nephrolithiasis, recurrent UTI Discharge Disposition: home or self care Discharge Instructions General Discharge Information Code Status: Full Code Patient's Diet: Diabetic diet, consistent carbohydrate Patient's Activity: As tolerated Follow-Up Instructions/Appts: Please visited Dr. Navas within 1 week's time. You need to schedule appointment for ESWL procedure. Your blood thinner Eliquis must be held for at least 3 days prior to the surgery. Please visit Dr. Stout, your Primary care physician within one week's time to prepare you for surgert, especially about blood thinner dosage. Please fix an appointment for endocrinology (diabetes doctor) Dr Rowe as soon as possible after getting discharged. Since you are getting frequent low blood sugar levels in the morning, please do not skip dinners at all. Return to emergency if you have severe flank pain, high fever, abdominal pain, nausea, vomitting. Medications at Discharge Discharge Medications: Continue taking these medications: Folic Acid (Folic Acid) 1 MG TABLET 1 Milligram ORAL DAILY Comments: Last Taken: 03/30/15 Time: 0900 Insulin Detemir (Levemir) 100 UNIT/ML VIAL 35 Units Inject into fatty tissue TWICE DAILY Qty = 1 Comments: Last Taken: 11/21/16 Time: 2200 METFORMIN HCL (Metformin) 1,000 MG TABLET 1 Tablet ORAL TWICE DAILY Qty = 30 Methotrexate (Methotrexate) 2.5 MG TABLET 6 Tablet ORAL Once a Week Qty = 30 Lisinopril (Lisinopril) 5 MG TABLET 1 Tablet ORAL DAILY Qty = 30 Comments: Last Taken: 11/21/16 Time: 1000 Levothyroxine Sodium (Levothyroxine Sodium) 25 MCG TABLET 1 Tablet ORAL DAILY Qty = 30 Comments: Last Taken: 11/22/16 Time: 1000 Tamsulosin HCl (Flomax) 0.4 MG CAP.ER.24H 1 Capsule ORAL DAILY Qty = 7 Comments: Last Taken: 11/22/16 Time: 1000 Apixaban (Eliquis) 5 MG TABLET 1 Tablet ORAL TWICE DAILY Qty = 60 Comments: Last Taken: 11/22/16 Time: 1000 Start taking the following new medications: Sennosides/Docusate Sodium (Senna Plus Tablet) 8.6 MG-50 MG TABLET 1 Tablet ORAL DAILY as needed for CONSTIPATION Qty = 15 No Refills Prednisone (Prednisone) 10 MG TABLET 1 Tablet ORAL See Instructions Qty = 24 No Refills Instructions: TAKE 4 TABS FOR TWO DAYS, THEN TAKE 2 TABS FOR THREE DAYS, THEN TAKE 1 TAB DAILY, TO CONTINUE. Cefpodoxime Proxetil (Cefpodoxime Proxetil) 200 MG TABLET 1 Tablet ORAL TWICE DAILY Qty = 20 No Refills Tylenol With Codeine (Tylenol With Codeine #3 Tablet) 300 MG-30 MG TABLET 1 Tablet ORAL EVERY 4-6 HOURS NEEDED as needed for sever pain Qty = 6 No Refills Copies To: NOELLE THOMPSON,ROYCE; PHILIP THOMPSON,LATONYA ROWE MD,JESSIE Attending MD Review Statement Documenting Attending: AURA REY M.D Other Findings: Patient is medically stable to be discharged.
--- NOTE | 2016-11-22 09:54 | PN- Housestaff ---
NATIVIDAD THOMPSON,GRAYSON 11/22/16 0954: Subjective Follow-up For: Sepsis, Pyelonephritis, bilateral urinary tract stones Complaints: no complaints Subjective: I followed up and examined the patient today. She is resting comfortably in her bed, is alert, oriented and is not in any apparent distress. See does not have any complaints overnight, and no issues reported from the nursing staff either. Review of Systems Constitutional: Reports: no symptoms. EENTM: Reports: no symptoms. Cardiovascular: Reports: no symptoms. Respiratory: Reports: no symptoms. Gastrointestinal: Reports: no symptoms. Genitourinary: Reports: no symptoms. Musculoskeletal: Reports: no symptoms. Skin: Reports: no symptoms. Neurological/Psychological: Reports: no symptoms. Hematologic/Endocrine: Reports: no symptoms. Objective Last 24 Hrs of Vital Signs/I&O Vital Signs Date Time Temp Pulse Resp B/P Pulse O2 O2 Flow FiO2 Ox Delivery Rate 11/22 0800 96 Room Air 11/22 0000 98 Room Air 11/22 0000 98.3 52 16 130/88 98 Room Air Intake & Output 11/22 1600 11/22 0800 11/22 0000 Intake Total 120 480 Output Total 500 625 Balance -380 -145 Intake, IV 0 Intake, Oral 120 480 Number 0 Bowel Movements Output, Urine 500 625 Physical Exam General Appearance: Alert, Oriented X3, Cooperative, No Acute Distress, overweight Other Physical Findings: Skin: No Rashes, No Breakdown, No Significant Lesion HEENT: Atraumatic, PERRLA, EOMI Neck: Supple, No JVD Lymphatic: Cervical nl Cardiovascular: Regular Rate Lungs: Clear to Auscultation Abdomen: Normal Bowel Sounds, Soft, no more tender CVA Neurological: grossly intact Extremities: No Clubbing, No Cyanosis Vascular: Normal Pulses, Pulses Symmetrical Current Medications: Current Medications Sig/Cesar Start time Last Medication Dose Route Stop Time Status Admin Acetaminophen 1,000 MG Q6P PRN 11/18 1015 DCD 11/20 N/A 1 UNIT IV 0745 Apixaban 5 MG BID 11/19 1133 DCD 11/22 PO 0953 Ceftriaxone Sodium 1,000 MG DAILY 11/19 1000 DCD 11/22 IV 0953 Folic Acid 1 MG DAILY 11/18 1209 DCD 11/22 PO 0952 Insulin Aspart 0 TIDAC 11/18 1700 DCD 11/21 SC 1648 Insulin Detemir 35 UNITS BID 11/21 1000 DCD 11/21 SC 2153 Levothyroxine Sodium 0.025 MG DAILY 11/18 1210 DCD 11/22 PO 0952 Morphine Sulfate 4 MG Q4P PRN 11/18 1015 DCD 11/21 IV 0445 Nicotine 14 MG DAILY 11/19 1000 DCD 11/19 TOP 0859 Ondansetron HCl 4 MG Q6P PRN 11/18 1015 DCD IV Polyethylene Glycol 17 GM DAILY PRN 11/20 0915 DCD 11/20 PO 1015 Prednisone 40 MG DAILY 11/21 1000 DCD 11/22 PO 0952 Senna/Docusate Sodium 1 TAB DAILY 11/20 1000 DCD 11/22 PO 0952 Tamsulosin HCl 0.4 MG DAILY 11/18 1216 DCD 11/22 PO 0953 Assessment/Plan Assessment: 66-year-old female with past medical history of hyperlipidemia, hypertension, hypothyroidism, A arthritis taking daily steroids, history of pulmonary embolism on anticoagulation therapy, nephrolithiasis and recurrent UTI was was initially admitted to the general medicine, and unstable blood pressures and transfer to ICU overnight. She is currently being managed in the ICU (as a general medicine floor hold patient) for the following issues: #Sepsis of urological origin, from Gram negative rods The patient has recurrent h/o UTI and septic focus, i.e. the calculi. Stent was placed yesterday on the left side, but still needs ESWL soon. Her temperature spiked to 105F on 11/19 and 102 on 11/20. Her systolic blood pressure has been around 120s above since she came to the ICU and received IV fluid boluses. -She is now stable and is a possible discharge to home with self-care today -Continue with IV ceftriaxone, fourth day today. Culture is sensitive to CTX. -Upon discharge, she can take cefpodoxime for the next 10 days, totaling antibiotics for 14 days. -ESWL has been postponed for now #Rheumatoid arthritis Patient is steroid-dependent, currently receiving IV steroids. -On oral prednisone after initial IV steroids, 40 mg once daily and taper per attending's suggestion. She is to visit her PCP before she runs out of steroids, if possible within a week of her dischargte. -Pain medications as pain pathway #Diabetes mellitus -Continue insulin sliding scale and home dose of insulin -Diabetic diet -Accu-Cheks 3 times a day and at bedtime -She has been advised to visit boilerhouse mechanic, and has been given a referral to visit boilerhouse mechanic as soon as possible upon discharge given her low blood sugars in the morning. -She did mention that she is taking less amount of food in dinnertime, so was encouraged to take regular amount of dinner and not to skip meals. She understands the situation and has agreed to the plan. #Hypothyroidism -Continue home medication of levothyroxine #History of pulmonary embolism -Eliquis was placed on hold initially, but after medical consultation, has been restarted. 11/19/16 -Eliquis has to be held for 3 days before the surgery. She understands the situation and has agreed to the plan #Nicotine dependence -Nicotine patch 40 mg every 24 hours #DVT prophylaxis -Eliquis #Diet: Diabetic diet #CODE STATUS: Full code Problem List: 1. Sepsis 2. Pyelonephritis 3. Renal colic on left side 4. Rheumatoid arteritis 5. Nephrolithiasis 6. Diabetes mellitus 7. Hypothyroidism 8. History of pulmonary embolism 9. Nicotine dependence Pain Ratin Pain Location: - Pain Goal: Remain pain free Pain Plan: prn Tomorrow's Labs & Rationales: none, patient is being discharged today AURA REY MD 11/22/16 1217: Attending MD Review Statement Attending Statement Attending MD Statement: examined this patient, discuss w/resident/PA/MARBLE CHIP TERRAZZO WORKER, agreed w/resident/PA/MARBLE CHIP TERRAZZO WORKER, reviewed EMR data (avail), discussed with nursing, discussed with case mgmt, amended to note Attending Assessment/Plan: Patient seen and examined. Resting comfortably and not in any acute distress. No events overnight. She remains afebrile at hemodynamically stable. Repeat blood cultures have been negative. At this point in time she is medically stable to be discharged home. She will continue on Cefpodoxine to complete 14 days of therapy. Her blood glucose level was 60 this morning on her routine dose of insulin. She reports having a small dinner yesterday. She has been encouraged to eat an adequate male identifying TO take a snack prior to going to bed. She will continue on her anticoagulation therapy as an outpatient. Follow-up with the urology service as an outpatient for timing of her lithotripsy. She should discontinue antibiotic therapy 3 days prior to the procedure.
[2016-11-22] MEDS ORDERED: TYLENOL WITH C1 EACH PO (16:45)
== END 2016-11-22 16:57 | DRG 871 ==
LOC: ENRESERVDT → ENRESERVTM → ERH 04:40 → ERHI 07:38 → CRI 07:38 → 2NA 11:18 → CRI 11-19 04:26
PROVIDERS: Emergency Medicine; Internal Medicine; ADMIT Internal Medicine
PROC: 0T778DZ Dilation of Left Ureter with Intraluminal Device, Via Natural or Artificial Opening Endoscopic (ICD-10-PCS; principal; 2016-11-18)
DX: A41.50 Gram-negative sepsis, unspecified (principal); R65.21 Severe sepsis with septic shock; N11.1 Chronic obstructive pyelonephritis; N39.0 Urinary tract infection, site not specified; E11.9 Type 2 diabetes mellitus without complications; B96.20 Unspecified Escherichia coli [E. coli] as the cause of diseases classified elsewhere; I10 Essential (primary) hypertension; Z79.4 Long term (current) use of insulin; E03.9 Hypothyroidism, unspecified; Z86.711 Personal history of pulmonary embolism; Z79.01 Long term (current) use of anticoagulants; F17.210 Nicotine dependence, cigarettes, uncomplicated; E78.5 Hyperlipidemia, unspecified; M06.9 Rheumatoid arthritis, unspecified
CPT/HCPCS: 2NAP; CCU; 36415; 74000; 74176; 74177; 81001; 82436; 87040; 87071; 87086; 93005; 93010; 96361; 96374; 96375; 97110-GO; 97116-GO; 97161-GP; C2617; J0131; J0696; J1650; J1720; J1885; J2405; J3490; J7060

== ENCOUNTER → 2016-11-27 | Day surgery (SDC) | payer OTHER ==
[~2016-11-27] VITALS: Ht 162.6 cm; Wt 77.1 kg
[~2016-11-27] MED LIST changes: +CEFPODOXIME PR200 M2 PO; +DOCUSATE SODIU100 M3 PO; +ELIQUIS5 M1 PO; +FLOMAX0.4 M1 PO; +GABAPENTIN300 M2 PO; +IBUPROFEN600 M1 PO; +LEVOTHYROXINE25 MCG PO; +LISINOPRIL5 M1 PO; +PERCOCET 5-3251 EACH PO; +PREDNISONE10 M2 PO; +PREDNISONE5 M1 PO; +SENNA PLUS TAB1 EACH PO; +SULFAMETHOXAZO1 EAC1 PO; +TYLENOL WITH C1 EACH PO
--- NOTE | 2016-11-27 11:56 | Operative Report ---
Operative/Inv Procedure Report Surgery Date: 11/27/16 Name of Procedure: left ureter ESWL only Pre-Operative Diagnosis: perisitent mild left hydro: 7mm left mid ureter stone Post-Operative Diagnosis: same Estimated Blood Loss: none Surgeon/Jackhammer Operator: MOLLY PALACIOS MD Anesthesia: moderate sedation Complications: none Operative/Procedure Note Note: The patient was taken to the operating room and placed on the ESWL table in supine position. Time out was performed, with the patient awake, to confirm identity, procedure, laterality, and other pertinent odilia-operative information. After adequate anesthesia, the patient was positioned so that the left flank was placed over the ESWL table cut-out, and overlying the dome of the shockwave generator. C-arm fluroscopy, as well as renal US was used to locate the stone, and evaluate the left kidney. The stone was visible on fluroloscopy at the mid- left ureter. Renal US confirmed mild hydronephrosis, with The left ureter stone was approximate 7 mm in size, and faintly visible with fluoroscopy. Using fluoroscopy, the position of the ureter stone was optimized for ESWL, using AP, and oblique views of the stone. Subsequently, E.S.W.L. was initiated at low power levels x 200 shocks. After noting the patient's tolerance to the shockwaves, the shock wave power level was quickly maximized. At the end of the procedure, the composition of the stone had changed significantly indicating the pulverization of the ureter stone. A total of 3000 shockwaves were delivered to the stone in order to achieve adequate lithotrypsy. The patient tolerated the procedures well, was awakened, and taken to recovery in satisfactory condition via stretcher. The pt will eventually be dischared to home with pain meds, diet orders, and intructions to catch fragments with straining the urine. The patient is to have follow-up renal ultrasound and KUB (after the left renal stone is treated as well). Findings: mild-mod. left hydro persists therefore cysto-stent removal delayed for several days. Discharge Disposition: Same Day Admissions CC: MOLLY PALACIOS MD
== END ==
LOC: STS 03:33
DX: N13.2 Hydronephrosis with renal and ureteral calculous obstruction (principal); Z86.711 Personal history of pulmonary embolism; Z79.01 Long term (current) use of anticoagulants; E03.9 Hypothyroidism, unspecified; E11.9 Type 2 diabetes mellitus without complications; Z79.4 Long term (current) use of insulin; F17.200 Nicotine dependence, unspecified, uncomplicated
CPT/HCPCS: J2250

== ENCOUNTER 2016-12-09 20:30 | Inpatient (IN) | payer OTHER ==
[~2016-12-09] VITALS: Ht 162.6 cm; Wt 68.0 kg
[~2016-12-09 20:30] MED LIST changes: -DOCUSATE SODIU100 M3 PO; -GABAPENTIN300 M2 PO; -SULFAMETHOXAZO1 EAC1 PO
--- NOTE | 2016-12-09 20:30 | NUR ---
PT ARRIVES AFTER SYNCOPAL EPISODE IN BR CO SEVERE BACK PAIN PT UNABLE TO HOLD STILL HYPOTENSIVE IN FIELD, PT WITH RECENT HX OF SEPSIS D/T KIDNEY STONE MOANING AND FLAILING ON STRETCHER.
--- NOTE | 2016-12-09 20:42 | ED SYNCOPE COMPLAINT ---
History of Present Illness General Chief Complaint: Syncope and Near-Syncope Stated Complaint: SYNCOPE Source: patient, family, old records, EMS Exam Limitations: poor historian Vital Signs & Intake/Output Vital Signs & Intake/Output Vital Signs Date Time Temp Pulse Resp B/P Pulse O2 O2 Flow FiO2 Ox Delivery Rate 12/10 0220 98.2 78 22 113/70 96 Room Air 12/10 0000 98.0 60 22 127/60 97 Room Air 12/098 97.3 64 20 97/51 97 Room Air 12/099 97.3 80 20 90/51 94 Room Air ED Intake and Output 12/10 0000 12/09 1200 Intake Total 1000 Output Total Balance 1000 Intake, IV 1000 Patient 150 lb Weight Allergies Coded Allergies: Cephalosporins (FACIAL RASH 01/29/16) Penicillins (VOMITING 11/18/16) Triage Nurses Notes Reviewed? yes Timing: recent history Precipitating Factors: lightheadedness (/DIZZINESS) Loss of Consciousness: no loss of consciousness HPI: 66-year-old female comes into emergency room for further evaluation of syncopal episode that occurred when she was on the toilet at home. Patient reports that she was feeling lightheaded and dizzy and then passed out. Daughter reported ambulance that she was completely unconscious. Patient is complaining of severe pain to her back. Patient is on ELIQUIS. She denies any chest pain or shortness of breath currently. Denies any fever or chills coughing. Significant pain to her lower back after falling off the toilet. Patient was recently here septic from a kidney stone. (DARIAN PANIAGUA,TIM) Reconcile Medications Apixaban (Eliquis) 5 MG TABLET 1 TAB PO BID PE (Reported) Folic Acid 1 MG TABLET 1 TAB PO DAILY SUPPLEMENT (Reported) Insulin Detemir (Levemir) 100 UNIT/ML VIAL 35 U SC BID DM (Reported) Levothyroxine Sodium 25 MCG TABLET 1 TAB PO DAILY THYROID (Reported) Lisinopril 5 MG TABLET 1 TAB PO DAILY HTN (Reported) Metformin HCl (Glucophage) 1,000 MG TABLET 1 TAB PO BID DM (Reported) Methotrexate 2.5 MG TABLET 6 TAB PO QMON RA (Reported) Prednisone 10 MG TABLET 1 TAB PO DAILY RHEUMATOID ARTHRITIS (Reported) (GERARDO THOMPSON,NICOLASA Maharaj) Past History Medical History Any Pertinent Medical History? 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 No (TIM BATES) Review of Systems Review of Systems Constitutional: Reports: no symptoms. EENTM: Reports: no symptoms. Respiratory: Reports: no symptoms. Cardiovascular: Reports: see HPI. GI: Reports: no symptoms. Genitourinary: Reports: no symptoms. Musculoskeletal: Reports: see HPI. Skin: Reports: no symptoms. Neurological/Psychological: Reports: see HPI. All Other Systems: Reviewed and Negative (TIM BATES) Physical Exam Physical Exam General Appearance: well developed/nourished, alert, moderate distress Head: atraumatic, normal appearance Eyes: Bilateral: normal appearance, EOMI. Ears, Nose, Throat: normal pharynx, normal ENT inspection Neck: normal inspection, full range of motion Respiratory: normal breath sounds, no respiratory distress Cardiovascular: regular rate/rhythm Gastrointestinal: soft, non-tender Back: normal inspection, severe left-sided tenderness with light palpation, no ecchymosis, no evidence of retroperitoneal bleeding, Extremities: normal range of motion Psychiatric: awake, alert, oriented x 3 Cranial Nerves: normal hearing, normal speech, PERRL Motor/Sensory: no motor/sensory deficits Core Measures ACS in differential dx? Yes CVA/TIA Diagnosis: No Severe Sepsis Present: No Septic Shock Present: No (TIM BATES) Progress Differential Diagnosis: AMI, aortic dissection, aortic valve, drug induced syncope, hyperventilation, orthostatic syncope, other valvular disease, pacemaker malfunction, pericardial tamponade, pulmonary embolus, seizure, sick sinus syndrome, subarachnoid hem., TIA/CVA, vasodepressor syncope, ventricular tach/fib Plan of Care: Orders Procedure Date/time Status Consistent Carbohydrate 3 12/10 B Active TROPONIN LEVEL 12/10 0900 Active EKG 12/10 0900 Active CBC WITHOUT DIFFERENTIAL 12/10 0600 Active BASIC ELECTROLYTES PLUS BUN&CR 12/10 0600 Active LACTIC ACID 12/10 0354 Active TROPONIN LEVEL 12/10 0300 Active EKG 12/10 0300 Active BLOOD CULTURE 12/10 0152 Active PT Evaluate & Treat 12/10 0149 Active Pathway - chart 12/10 0149 Active House Staff 12/10 0149 Active Patient Data 12/10 0149 Active Code Status 12/10 0149 Active LACTIC ACID 12/10 0054 Active Patient Data 12/10 0051 Active Add-on Test (ER Only) 12/10 0045 Active Saline Lock 12/[address] in observation 12/10 0022 Active Misc Message 12/10 0022 Active ED Holding Orders 12/10 0022 Active Vital Signs 12/10 0022 Active Code Status 12/10 0022 Complete Add-on Test (ER Only) 12/10 0005 Active VTE Mechanical Prophylaxis 12/10 UNK Active MISTAKE 12/10 UNK Active Telemetry/House Painting Instructor 12/10 UNK Active FingerStick- Glucose 12/10 UNK Active ECHOCARDIOGRAM 12/10 UNK Active CULTURE,URINE 12/09 2350 Active Intake & Output 12/09 2335 Active LACTIC ACID 12/09 2105 Complete URINALYSIS 12/09 2042 Complete Telemetry/House Painting Instructor 12/10 2035 Active TROPONIN LEVEL 12/10 2035 Complete COMPREHENSIVE METABOLIC PANEL 12/10 2035 Complete CBC WITHOUT DIFFERENTIAL 12/10 2035 Complete EKG 12/10 2035 Active Current Medications Sig/Cesar Start time Last Medication Dose Stop Time Status Admin Ceftriaxone Sodium 1,000 MG DAILY@0200 12/11 0200 AC (Rocephin) Apixaban 5 MG BID 12/10 1000 AC (Eliquis) Insulin Detemir 35 UNITS BID 12/10 1000 AC (Levemir) Prednisone 10 MG DAILY 12/10 1000 AC Insulin Aspart 0 TIDAC 12/10 0800 AC (NovoLOG) Levothyroxine Sodium 0.025 MG DAILY AC 12/10 0700 AC (Synthroid) Heparin Sodium 5,000 UNIT Q8 12/10 0600 CAN (Porcine) Oxycodone/ 1 TAB Q6P PRN 12/10 0600 AC Acetaminophen (Percocet) Cyclobenzaprine HCl 5 MG TID 12/10 0235 AC (Flexeril 5MG Tab) Sodium Chloride 1,000 ML .Q10H 12/10 0145 AC (Normal Saline 0.9%) Ciprofloxacin 500 MG ONCE ONE 12/10 44 CAN (Cipro) 12/10 0046 Laboratory Tests 12/09/162349: Urinalysis LIGHT H, Urine Color STRAW, Urine Clarity HAZY H, Urine pH 6.5, Ur Specific [place] 1.010, Urine Protein 30 H, Urine Ketones NEG, Urine Nitrite POS H, Urine Bilirubin NEG, Urine Urobilinogen 0.2, Ur Leukocyte Esterase MOD H, Ur Microscopic SEDIMENT EXAMINED, Urine RBC 5-10 H, Urine WBC 25-50 H, Urine Bacteria FEW H, Urine Mucus FEW, Urine Hemoglobin MOD H, Urine Glucose NEG 12/09/162105: Anion Gap 11, Estimated GFR 45 L, BUN/Creatinine Ratio 17.5, Glucose 154 H, Lactic Acid 2.8 H, Calcium 9.2, Total Bilirubin 0.3, AST 20, ALT 43, Alkaline Phosphatase 129 H, Troponin I 0.02, Total Protein 6.4, Albumin 3.2 L, Globulin 3.2, Albumin/Globulin Ratio 1.0 L, CBC w Diff MAN DIFF ORDERED, RBC 4.35, MCV 91.5, MCH 29.9, RDW 15.0 H, MPV 8.6, Gran % 87.3 H, Lymphocytes % 8.2 L, Monocytes % 4.0, Eosinophils % 0.5, Basophils % 0 L, Absolute Granulocytes 23.1 H, Segmented Neutrophils 85 H, Absolute Lymphocytes 2.2, Lymphocytes 9 L, Monocytes 5, Absolute Monocytes 1.0 H, Absolute Eosinophils 0.1, Absolute Basophils 0, Platelet Estimate ADEQUATE, Normal RBC Morphology N, PUBS MCHC 32.7 L Microbiology 12/11 151 BLOOD: Blood Culture - ORD 12/11 151 BLOOD: Blood Culture - ORD 12/09 2349 URINE ROUT: Urine Culture - RECD Diagnostic Imaging: Viewed by Me: Radiology Read, CT Scan. Discussed w/RAD: Radiology Read, CT Scan. Radiology Impression: SERVICE DATE: 12/09/16-2035 EXAM TYPE: RAD - XRY- PORTABLE CHEST XRAY EXAMINATION: CHEST 1 VIEW CLINICAL INFORMATION: Syncope. Pain. COMPARISON: None. TECHNIQUE: An AP view of the chest is provided. FINDINGS : The cardiac silhouette is not enlarged. The mediastinal and hilar contours are unremarkable. There are neither pleural effusions nor pneumothoraces. There are no consolidations. There is interstitial prominence identified throughout both lungs The osseous structures are unremarkable. IMPRESSION: No evidence for acute airspace disease. Interstitial prominence identified throughout both lungs. This is nonspecific, but likely chronic. DICTATED BY: DOUGLAS LAM MD DATE/TIME DICTATED:12/09/162117 BUSINESS SEGMENT MANAGER:LUIS CARLOS , SERVICE DATE: 12/09/162035 EXAM TYPE: CAT - CT ABD & PELVIS W/O IV CONTRAS EXAMINATION: CT ABDOMEN AND PELVIS WITHOUT CONTRAST CLINICAL INFORMATION: Back pain. History of nephrolithiasis. COMPARISON: 11/19/2016. TECHNIQUE: Contiguous axial thin section helical images of the abdomen and pelvis were performed without oral or IV contrast. The data set was reformatted in the coronal and sagittal planes and reviewed on an independent workstation. DLP: 667 mGy-cm. FINDINGS: Again identified is honeycombing within both lung bases indicative of chronic interstitial disease. The visualized portions of the heart are unremarkable. The liver is of normal size and diffuse decreased attenuation without focal lesions nor intrahepatic biliary ductal dilation. A normal gallbladder is identified. There is no wall thickening or discernible pericholecystic fluid. The spleen, pancreas, adrenal glands are unremarkable. Both kidneys are of normal size and attenuation without hydronephrosis. There are numerous nonobstructive renal calculi bilaterally. A left double-J ureteral stent is in position. There is no abdominal free fluid. There is neither mesenteric nor retroperitoneal lymphadenopathy. Normal unopacified loops of small and large bowel are identified. There is no pelvic free fluid. The urinary bladder is unremarkable. There is neither pelvic nor inguinal lymphadenopathy. Bone windows: There is new demonstration of a compression fracture at L2. There is approximately 15% height loss. IMPRESSION: Numerous nonobstructive renal calculi bilaterally. No hydronephrosis. Left double-J ureteral stent in place. Hepatic steatosis. Chronic interstitial lung disease noted within the visualized lung bases. New demonstration of a compression fracture at L2. Consider consultation with Interventional Radiology for treatment of this new compression fracture. DICTATED BY: DOUGLAS LAM MD DATE/TIME DICTATED:12/09/162107 BUSINESS SEGMENT MANAGER:LUIS CARLOS DATE/TIME TRANSCRIBED:12/09/162107 Initial ED EKG: normal intervals, normal p-waves, normal QRS complex, normal sinus rhythm, rate (76) Comments: 12/09/2016 11:38:11 PM Multiple attempts had been tried to get blood work. A femoral stick was done at bedside with ultrasound guidance. Blood work sent. Pending results. (TIM BATES) Departure Departure Disposition: STILL A PATIENT Condition: Stable Clinical Impression Primary Impression: Syncope Secondary Impressions: Lumbar compression fracture, UTI (urinary tract infection ) Referrals: ROYCE DRAKE MD (PCP/Family) Departure Forms: Customer Survey General Discharge Information Admission Note Spoke With: JOSEFA HINOJOSA MD Documentation of Exam: Documentation of any treatments & extenuating circumstances including Concerns Regarding Discharge (functional status, medication knowledge or non-compliance, living conditions, etc.) that warrant an admission rather than observation: Patient was hypotensive when she came into the emergency room. Patient will require IV hydration. Patient will require serial blood work. Cardiac telemetry. Antibiotics for urinary infection. Cardiac consultation. Patient will require also IV pain control for her back pain. Patient unable to ambulate here secondary to pain. (TIM BATES) PA/BRAIDING MACHINE TENDER Co-Sign Statement Statement: ED Attending supervision documentation- [x] I saw and evaluated the patient. I have also reviewed all the pertinent lab results and diagnostic results. I agree with the findings and the plan of care as documented in the PA's/BRAIDING MACHINE TENDER's documentation. pt signed out to me. [] I have reviewed the ED Record and agree with the PA's/BRAIDING MACHINE TENDER's documentation. [] Additions or exceptions (if any) to the PAs/BRAIDING MACHINE TENDER's note and plan are summarized below: [] (GERARDO THOMPSON,NICOLASA Maharaj)
--- NOTE | 2016-12-09 21:12 | CT SCAN REPORT ---
EXAMINATION: CT HEAD WITHOUT CONTRAST CLINICAL INFORMATION: Pain. Syncope. COMPARISON: None. TECHNIQUE: Contiguous axial images of the brain were obtained without IV contrast. DLP: 601 mGy-cm. FINDINGS: There are no pathologic extra-axial fluid collections. The lateral, third, fourth ventricles are nondilated and concordant with the appearance of the sulci. There is no evidence for acute intraparenchymal hemorrhage or infarct. There is neither mass nor mass effect. There is no shift of midline structures. The paranasal sinuses and mastoid air cells are clear. There are no osseous lesions. IMPRESSION: No evidence for acute intracranial injury.
--- NOTE | 2016-12-09 21:19 | CT SCAN REPORT ---
EXAMINATION: CT ABDOMEN AND PELVIS WITHOUT CONTRAST CLINICAL INFORMATION: Back pain. History of nephrolithiasis. COMPARISON: 11/19/2016. TECHNIQUE: Contiguous axial thin section helical images of the abdomen and pelvis were performed without oral or IV contrast. The data set was reformatted in the coronal and sagittal planes and reviewed on an independent workstation. DLP: 667 mGy-cm. FINDINGS: Again identified is honeycombing within both lung bases indicative of chronic interstitial disease. The visualized portions of the heart are unremarkable. The liver is of normal size and diffuse decreased attenuation without focal lesions nor intrahepatic biliary ductal dilation. A normal gallbladder is identified. There is no wall thickening or discernible pericholecystic fluid. The spleen, pancreas, adrenal glands are unremarkable. Both kidneys are of normal size and attenuation without hydronephrosis. There are numerous nonobstructive renal calculi bilaterally. A left double-J ureteral stent is in position. There is no abdominal free fluid. There is neither mesenteric nor retroperitoneal lymphadenopathy. Normal unopacified loops of small and large bowel are identified. There is no pelvic free fluid. The urinary bladder is unremarkable. There is neither pelvic nor inguinal lymphadenopathy. Bone windows: There is new demonstration of a compression fracture at L2. There is approximately 15% height loss. IMPRESSION: Numerous nonobstructive renal calculi bilaterally. No hydronephrosis. Left double-J ureteral stent in place. Hepatic steatosis. Chronic interstitial lung disease noted within the visualized lung bases. New demonstration of a compression fracture at L2. Consider consultation with Interventional Radiology for treatment of this new compression fracture.
--- NOTE | 2016-12-09 21:25 | RADIOLOGY REPORT ---
EXAMINATION: CHEST 1 VIEW CLINICAL INFORMATION: Syncope. Pain. COMPARISON: None. TECHNIQUE: An AP view of the chest is provided. FINDINGS: The cardiac silhouette is not enlarged. The mediastinal and hilar contours are unremarkable. There are neither pleural effusions nor pneumothoraces. There are no consolidations. There is interstitial prominence identified throughout both lungs The osseous structures are unremarkable. IMPRESSION: No evidence for acute airspace disease. Interstitial prominence identified throughout both lungs. This is nonspecific, but likely chronic.
--- NOTE | 2016-12-09 22:30 | NUR ---
REMAINS WRITHING ON STRETCHER UNSUCESSFUL IV STICK X 6 IV PATENT. PT APPEARED COMF FOR SHORT TIME BUT NOW UNCOMF AGAIN MOANING IN PAIN.
--- NOTE | 2016-12-09 22:54 | NUR ---
PT ALERT MENTATING WELL, ALTHOUGH BP REMAINS 90'S. ALERT NO CONFUSION CO ONLY OF 10/10 BACK PAIN. PT MED WITH MORPHINE 2 MG IV SLOW PT TO HAVE FEMORAL STICK FOR LABS.
[2016-12-09 23:18] LABS: ABSOLUTE BASOPHIL COUNT 0 /CUMM (0.0-0.2); ABSOLUTE EOSINOPHIL COUNT 0.1 /CUMM (0.0-0.7); ABSOLUTE GRANULOCYTE CT 23.1 /CUMM (1.4-6.5); ABSOLUTE LYMPH COUNT 2.2 /CUMM (1.2-3.4); BASOPHIL % 0 % (0.0-2.0); EOSINOPHIL % 0.5 % (0-5); GRANULOCYTE % 87.3 % (42.2-75.2); HEMATOCRIT 39.8 % (37-47); MEAN CORPUSCULAR HGB 29.9 PG (27.0-31.0); MEAN CORPUSCULAR HGB CONC 32.7 G/DL (33.0-37.0); MEAN CORPUSCULAR VOLUME 91.5 FL (81.0-99.0); MEAN PLATELET VOLUME 8.6 FL (7.4-10.4); PLATELET COUNT 249 /CUMM (130-400); RED BLOOD CELL CT 4.35 /CUMM (4.20-5.40)
--- NOTE | 2016-12-09 23:36 | NUR ---
PT REPORTS BEING UNCOMF MORPHINE DID NOT HELP. PT AWARE THAT AFTER SHE IS DONE ON BEDPAN BP WILL BE RETAKEN AND WILL CONFER WITH PROVIDER.
[2016-12-09 23:45] LABS: WHITE BLOOD CELL COUNT 26.5 /CUMM (4.8-10.8)
--- NOTE | 2016-12-09 23:57 | NUR ---
ST CATH FOR 225 CCS CLOUDY URINE PT UNABLE TO VOID. VSS
--- NOTE | 2016-12-10 00:31 | NUR ---
CRITICAL TEST RESULTS [id number] JEFF CHIN 66 F TESTS AND RESULTS: LACTIC 2.8 Results received and read back by: MONTSE JOSEPH Results received date and time: 12/10/16 0031 The following provider was notified of the results, and read the results back: ZAIN PANIAGUA Notified date and time: 12/10/16 at 0025 PER [facility]EM[facility]
--- NOTE | 2016-12-10 00:56 | History & Physical ---
BRIANNA ROJAS MD 12/10/16 0056: General Information and HPI MD Statement: I have seen and personally examined JEFF CHIN and documented this H&P. The patient is a 66 year old F who presented with a patient stated chief complaint of syncope. Source of Information: patient, old records Exam Limitations: no limitations History of Present Illness: Ms. Chin is a 66 year old female with PMH hypertension, hyperlipidemia, hypothyroidism, rheumatoid arthritis on daily steroids, osteoporosis per patient , pulmonary embolism on anticoagulation, nephrolithiasis, recurrent urinary tract infections, GERD, insulin-dependant diabetes mellitus and tobacco dependance who presents with chief complaint of syncope. Patient reports she was recently discharged from [facility] on 11/22/16 after an admission for sepsis of urological origin with focus from bilateral renal calculi. She finished a course of oral antibiotics as an outpatient and had an ESWL on 11/27/[address] Navas. She has been doing well until this morning after a bowel movement when she stood up, became dizzy and her vision turned black. She subsequently syncopized for unknown duration but her daughter heard her scream and called EMS immediately. There was no report of loss of bowel/bladder function or seizure like activity. On presenation to the ED, patient complained of severe, 10/10 low back pain that began immediately after the fall and pain with movement of her bilateral lower extremities. She currently denies fever, chills, chest pain, palpitations, dizziness, shortness of breath, abdominal pain, dysuria or foul smelling urine, though she admits to increased frequency. Social history is significant for tobacco abuse, currently smoking about 3 cigarettes a day, though she has smoked up to 1 pack per day previously. She denies alcohol or illicit drug use. She follows closely with a extractor operator who has her on daily steroids for her RA. She also sees Dr. Navas as her urologist and Dr. Stout as her PCP. She lives at home with her daughter and uses a walker for ambulation. Of note, patient reports she has a history of osteoporosis, though she denies being on treatment for this. Allergies/Medications Allergies: Coded Allergies: Cephalosporins (FACIAL RASH 01/29/16) Penicillins (VOMITING 11/18/16) Home Med list Apixaban (Eliquis) 5 MG TABLET 1 TAB PO BID PE (Reported) Folic Acid 1 MG TABLET 1 TAB PO DAILY SUPPLEMENT (Reported) Insulin Detemir (Levemir) 100 UNIT/ML VIAL 35 U SC BID DM (Reported) Levothyroxine Sodium 25 MCG TABLET 1 TAB PO DAILY THYROID (Reported) Lisinopril 5 MG TABLET 1 TAB PO DAILY HTN (Reported) Metformin HCl (Glucophage) 1,000 MG TABLET 1 TAB PO BID DM (Reported) Methotrexate 2.5 MG TABLET 6 TAB PO QMON RA (Reported) Prednisone 10 MG TABLET 1 TAB PO DAILY RHEUMATOID ARTHRITIS (Reported) Compliance With Home Meds: GOOD Past History Travel History Traveled to [place] past 21 day No Medical History Neurological: NONE EENT: NONE Cardiovascular: NONE Respiratory: pulmonary embolism Gastrointestinal: GERD Hepatic: NONE Renal: KIDNEY STONES Musculoskeletal: rheumatoid arthritis Psychiatric: NONE Endocrine: hypothyroidism, IDDM Blood Disorders: NONE Cancer(s): NONE 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 Home Who Do You Live With? spouse, child Services at Home: None Primary Language: Yi Smoking Status: Current Everyday Smoker ETOH Use: denies use Illicit Drug Use: denies illicit drug use Living Will? no Functional Ability ADLs Independent: dressing, eating, toileting, bathing. Ambulation: walker IADLs Independent: shopping, housework, finances, food prep, telephone, transportation , medication admin. Review of Systems Review of Systems Constitutional: Denies: chills, fever, malaise, weakness. EENTM: Denies: visual changes, hearing changes, nasal congestion. Cardiovascular: Reports: syncope. Denies: chest pain, palpitations, peripheral edema. Respiratory: Denies: cough, short of breath, sputum production. GI: Denies: abdominal pain, nausea, changes in stool, vomiting. Genitourinary: Reports: frequency. Denies: dysuria, hematuria, hesitation, pain. Musculoskeletal: Reports: back pain, muscle pain. Skin: Denies: rash. Neurological/Psychological: Denies: confusion, headache, numbness, paresthesia, petit mal seizures, tingling. Hematologic/Endocrine: Denies: bruising, bleeding. Immunologic/Allergic: Denies: splenectomy. All Other Systems: Reviewed and Negative Exam & Diagnostic Data Last 24 Hrs of Vital Signs/I&O Vital Signs Date Time Temp Pulse Resp B/P Pulse O2 O2 Flow FiO2 Ox Delivery Rate 12/10 0000 98.0 60 22 127/60 97 Room Air 12/09 2228 97.3 64 20 97/51 97 Room Air 12/09 2039 97.3 80 20 90/51 94 Room Air Intake & Output 12/10 0800 12/10 0000 12/09 1600 Intake Total 1000 Output Total Balance 1000 Intake, IV 1000 Patient 150 lb Weight Physical Exam General Appearance Alert, Oriented X3, Cooperative, Mild Distress (With movement ), Obese Skin No Rashes, No Significant Lesion HEENT Atraumatic, PERRLA, EOMI, Mucous Membr. moist/pink Neck Supple, +2 Carotid Pulse wo Bruit Lymphatic Cervical nl Cardiovascular Regular Rate, Normal S1, Normal S2, No Murmurs Lungs Clear to Auscultation, Normal Air Movement Abdomen Normal Bowel Sounds, Soft, No Masses, Slight tenderness to palpation of suprapubic area Neurological Normal Speech, Strength at 5/5 X4 Ext, Sensation Intact, Cranial Nerves 3-12 NL, Tenderness to palpation of lumbar spine and paraspinal musculature., Normal passive range of motion of RLE, LLE limited secondary to severe pain. Extremities No Clubbing, No Cyanosis, No Edema, No Tenderness/Swelling Vascular Pulses Symmetrical Last 24 Hrs of Labs/Jarett: Laboratory Tests 12/09/16 2350: Urinalysis LIGHT H, Urine Color STRAW, Urine Clarity HAZY H, Urine pH 6.5, Ur Specific [place] 1.010, Urine Protein 30 H, Urine Ketones NEG, Urine Nitrite POS H, Urine Bilirubin NEG, Urine Urobilinogen 0.2, Ur Leukocyte Esterase MOD H, Ur Microscopic SEDIMENT EXAMINED, Urine RBC 5-10 H, Urine WBC 25-50 H, Urine Bacteria FEW H, Urine Mucus FEW, Urine Hemoglobin MOD H, Urine Glucose NEG 12/09/16 2106: Anion Gap 11, Estimated GFR 45 L, BUN/Creatinine Ratio 17.5, Glucose 154 H, Lactic Acid 2.8 H, Calcium 9.2, Total Bilirubin 0.3, AST 20, ALT 43, Alkaline Phosphatase 129 H, Troponin I 0.02, Total Protein 6.4, Albumin 3.2 L, Globulin 3.2, Albumin/Globulin Ratio 1.0 L, CBC w Diff MAN DIFF ORDERED, RBC 4.35, MCV 91.5, MCH 29.9, RDW 15.0 H, MPV 8.6, Gran % 87.3 H, Lymphocytes % 8.2 L, Monocytes % 4.0, Eosinophils % 0.5, Basophils % 0 L, Absolute Granulocytes 23.1 H, Segmented Neutrophils 85 H, Absolute Lymphocytes 2.2, Lymphocytes 9 L, Monocytes 5, Absolute Monocytes 1.0 H, Absolute Eosinophils 0.1, Absolute Basophils 0, Platelet Estimate ADEQUATE, Normal RBC Morphology N, PUBS MCHC 32.7 L Microbiology 12/10 015 BLOOD: Blood Culture - ORD 12/10 015 BLOOD: Blood Culture - ORD 12/09 2350 URINE ROUT: Urine Culture - RECD Diagnostic Data EKG Results NSR HR 76 QTC 450 CXR Results IMPRESSION: No evidence for acute airspace disease. Interstitial prominence identified throughout both lungs. This is nonspecific, but likely chronic. Other Results Head CT: IMPRESSION: No evidence for acute intracranial injury. Abdomen/Pelvis CT: IMPRESSION: Numerous nonobstructive renal calculi bilaterally. No hydronephrosis. Left double-J ureteral stent in place. Hepatic steatosis. Chronic interstitial lung disease noted within the visualized lung bases. New demonstration of a compression fracture at L2. Consider consultation with Interventional Radiology for treatment of this new compression fracture. Assessment/Plan Assessment: Ms. Chin is a pleasant 66 year old female with PMH hypertension, hyperlipidemia, hypothyroidism, rheumatoid arthritis on daily steroids, osteoporosis per patient, pulmonary embolism on anticoagulation, nephrolithiasis , recurrent urinary tract infections, GERD, insulin-dependant diabetes mellitus and tobacco dependance who presents to the [facility] ED after a syncopal episode. Patient had a bowel movement earlier this morning and upon standing, noted dizziness and darkening of her vision followed by loss of consciousness. She had head strike and is noted to have trauma to her back. There was no loss of bowel/ bladder function. Patient is currently without chest pain, palpitations, shortness of breath, dizziness, confusion or neurological findings. She does endorse 10/10 low back pain with any movement. In the ED: Vital signs showed T 97.3, HR 80, RR 20, BP 90/51 that increased to 127/60 after a normal saline bolus, and O2 saturation of 97% on room air. Labs were significant for leukocytosis to 26.5 and 87% granulocytosis, BUN/cre 21/1.2 , lactate 2.8, alkphos 129 and UA suggestive of UTI with 30 protein, positive nitrite, moderate leukocyte esterase, 5-10 RBC, 25-50 WBC, few bacteria and moderate hemoglobin. Abdominal/pelvic CT showd bilateral non-obstructive calculi, no hydronephrosis, left double-J ureteral stent, hepatic steatosis, and new L2 compression fracture. CXR show no acute airspace disease and chronic interstitial prominence. Head CT shows no acute intracranial injury. Patient is admitted to the telemetry floor and the following is the management: 1. Syncope * Admit to telemetry for continuous telemetry monitoring * Consideration for vasovagal or orthostatic (patient did not eat or drink much this AM) * Orthostatic vital signs ordered, follow up results * Echocardiogram ordered, follow up results * Rule out ACS,next troponin and EKG at 3 am and 9 am * Monitor for arrythmia * Continue IV hydration while on the floor, NS at 100 cc/h * Fall precuations 2. Sepsis secondary to urinary tract infection * Patient hypotensive on admission with leukocytosis and elevated lactic acid on admission * UA shows +leukocyte esterase, nitrites and white cells; CT abdomen showed nonobstructive renal calculi bilaterall without hydronephrosis * Urine culture and blood cultures sent, f/u results * Will continue patient on IV ceftriaxone daily pending culture results * IV hydration as noted above 3. DALIA * BUN/cre 21/1.2 on admission, baseline creatinine 0.8 * Continue IVF * Monitor BEP daily 4. New L2 compression fracture * Patient endorses history of osteoporosis without current treatment * Pain management with dilaudid for severe pain, percocet for moderate pain, and flexeril for muscle relaxation * PT evaluation and possible consideration for rehab upon discharge * Continue ambulation with a walker * F/U with PCP for discussion on bisphosphanate therapy (new fragility fracture) 5. History of PE * Continue eliquis 5 mg PO BID 6. Diabetes mellitus * Accuchecks TIDAC/HS * 35 U SC levemir BID * Novolog sliding scale TID 7. Hypothyroidism * Continue synthroid daily 8. RA * Continue predisone 10 mg PO daily FULL CODE DVTP: Eliquis Mild-severe pain pathway Consistent carbohydrate 3 diet As Ranked By This Provider Problem List: 1. Lumbar compression fracture 2. Syncope 3. Nicotine dependence 4. History of pulmonary embolism 5. Hypothyroidism 6. Diabetes mellitus 7. Nephrolithiasis 8. Rheumatoid arteritis 9. Sepsis Core Measures/Miscellaneous Acute Coronary Syndrome ACS Diagnosis: No Cerebrovascular Accident CVA/TIA Diagnosis: No Congestive Heart Failure CHF Diagnosis: No Venous Thromboembolism VTE Risk Factors: Acute medical illness, Age > 40, Smoking No [facility] VTE prophylaxis d/t: No contraindications No VTE Pharm Prophylaxis d/t: No contraindications VTE Diagnosis: No VTE Type: NONE VTE Confirmed by (Test): NONE Severe Sepsis Severe Sepsis Present: No Septic Shock Septic Shock Present: No Miscellaneous Documentation Attending Case Discussed With: Dr. Drake [facility] Patient sees these Specialists Dr. Navas, urology Level of Patient Care: Telemetry ASHISH THOMPSON, [facility] 12/10/16 0304: Attending MD Review Statement Attending Statement Attending MD Statement: examined this patient, discuss w/resident/PA/CUT OFF SAW OPERATOR PIPE BLANKS, agreed w/resident/PA/CUT OFF SAW OPERATOR PIPE BLANKS Attending Assessment/Plan: 66 yo F smoker with h/o HTN, hypothyroidism, RA on chronic prednisone, osteoporosis, PE on eliquis, nephrolithiasis, recurrent urinary tract infections , IDDM, here for evaluation of syncopal episode in the toilet after having a BM, resultant fall and back pain. Unclear as to how long she was passed out for, no seizure like activity. C/o urinary frequency, but no dysuria. Patient was recently admitted to [facility] (11/18 11/22) for Ecoli UTI sepsis and bacteremia , obstructive uropathy s/p left ureteral stent placement on Nov 18. She was discharged on Cefpodoxime. She then underwent left ureter ESWL on November 27 but no stent removal as left hydro persisted. Vitals: BP was 80 systolic on field, 90/51 on ER arrival that responded to fluids 113/70, otherwise stable. Labs: WBC 26.5, BUN 21, creat 1.2 (baseline 0.8 ), lactic acid 2.8, trop neg. UA nitrite+, LE mod, WBC 25-50. EKG: SR. CT abd/ pelvis: numerous nonobstructing renal calculi bilaterally, no hydronephrosis, hepatic steatosis, new L2 compressions fracture. CT head and CXR neg. 1. Syncope likely vasovagal episode. Tele admit to rule out arrhythmias, rule out ACS, check orthostats, obtain Echo. Continue IV fluids. Check random and AM cortisol levels. If persistently hypotensive, will benefit from stress dose steroids. Trend lactic acid. 2. Recurrent UTI in the setting of nephrolithiasis and recent ESWL. Panculture, IV ceftriaxone and IV fluids. Consider Urology consult as necessary. No e/o hydronephrosis on CT. 3. DALIA. Gentle hydration, trend renal functions. No NSAIDs. Hold lisinopril and metformin. 4. Back pain, new L2 compression fracture. Pain management with IV dilaudid, add diazepam or flexeril for muscle spasms. PT eval and possible STR. 5. Rheumatoid arthritis. Ct. Prednisone 10 mg daily, hold methotrexate for now. DVT ppx Eliquis. Full code. CÉSAR THOMPSON,[facility] 12/10/16 0308: Resident Review Statement Resident Statement: examined this patient, discussed with marketing research intern, agreed with marketing research intern Other Findings: This is a 66 y/o F with a PMH of PE on Eliquis, RA on Prednisone and MTX and IDDM, recently discharged from [facility] after admission for sepsis of urological origin 2/ obstructing calculus s/p stent to the left ureter. During the admission, she was noted to be growing E.coli sensitive to Ceftriaxone and Ceftazidime. She was started on Ceftriaxone and then discharged home to complete a course of Cefpodoxime on 11/22. She reports that she saw Dr. Navas on 11/27 for a left sided ESWL and was asked to come back in 2 weeks. She reports feeling dizzy , when trying to have a bowel movement this morning. She got up, felt lightheaded and then passed out. Apparently her daughter heard her fall. No reported involuntary movements, incontinence of bowel or bladder noted. She denies any urinary symptoms except for increased frequency. She does not endorse any URI or other infections either. Review of systems was otherwise negative. She reports compliance with all her medications and endorses completing her course of antibiotics after discharge from the hospital. Vitals: Was hypotensive in the field. On arrival, she was noted to have a BP of 90/51 which responded to fluids and increased to 127/60. Afebrile. Saturating well on RA Labs: Leukocytosis with increased segs, elevated creatinine to 1.2, U/A shows the presence of positive nitrites, moderate LE and 25-50 WBC. Imaging: Head CT negative for any acute intracranial injury. CXR does not show any evidence of acute airspace disease. CT A/P shows the presence of numerous non-obstructing renal calculi bilaterally with no hydronephrosis. Left double J ureteral stent in place. New compression fracture at L2. Problem List: 1) Syncope possible 2/2 vasovagal attack 2) Sepsis of urological origin 3) Compression fracture at the level of L2 4) DALIA 5) Rheumatoid Arthritis on MTX and daily Prednisone 6) Hypothyroidism 7) DMT2 on Levemir and Metformin 8) H/O PE, currently on Eliquis 9) H/O Osteoporosis per patient, not currently under treatment Plan: * Admit to Telemetry for evaluation of syncope * Trops and EKG x 3, ECHO, Orthostats, Fluids * Continue Ceftriaxone, urine cultures, blood cultures * Pain managment of fracture with Percocet and Dilaudid * Fluids for DALIA, hold home Lisinopril and MTX * Continue Daily Prednisone for now. Patient will need further workup with respect to management of osteoporosis including bisphosphonates * Continue LT4 * Fingersticks, Levemir and Novolog sliding scale * Continue eliquis * DVT PPx: Eliquis * Pain Management: Percocet and Dilaudid per pain scale * Code Status: Full Code
--- NOTE | 2016-12-10 01:02 | NUR ---
PT HAS ROOM #[id number]
--- NOTE | 2016-12-10 01:22 | NUR ---
PA AWARE OF NO BC HE IS WHO DID FEMORAL STICK,.
[2016-12-10] MEDS ORDERED: PREDNISONE10 M2 PO (01:55)
--- NOTE | 2016-12-10 02:11 | NUR ---
DR HINOJOSA AWARE PT WAS MEDICATED WITH PO CIPRO 500 MG PRIOR TO IT BEING DISCONTINUED FLORENCE KWAN AWARE WELL. DR HINOJOSA ALSO AWARE UNABLE TO GET BLOOD CULTURES. PT HAD BEEN STUCK NUMEROUS TIMES WITHOUT SUCESS. OK TO GIVE ROCEPHIN IV PER .
--- NOTE | 2016-12-10 03:05 | Admission Certification ---
Admission Certification Certification Statement - As attending physician, I certify that at the time of - admission, based on clinical presentation, severity of - symptoms, need for further diagnostic testing and - therapeutic interventions, and risk of adverse outcomes - without in-hospital treatment, in my clinical assessment, - this patient requires an acute hospital stay for a minimum - of two nights or longer. I have also considered psychsocial - factors such as support system, advanced age, financial - issues, cognitive issues, and failed out-patient treatments, - past re-admission history, safety of patient, and lack of - compliance as applicable. Specific rationale supporting this admission is: Syncope, recurrent UTI and back pain 2/2 new L2 compression fracture - needs PT and pain management.
[2016-12-10 07:00] VITALS: BP 122/70; BP 146/72
--- NOTE | 2016-12-10 08:02 | PN- Student ---
CLAIR TRIANA 12/10/16 0753: Subjective Subjective: Patient is seen and examined at bedside. Patient reports feeling okay. Patient is still experiencing lower back pain (x/10) on pain meds (Dilaudid) that is non -radiating with no paresthesias or sensory losses of her lower extremities. Patient does not have back pain normally with her Rheumatoid arthritis. Patient is here on telemetry following a syncopal episode after getting up from the toilet 2 days ago. Patient was recently admitted to [place] due to sepsis 2/2 UTI with bilateral renal colic which was treated successfully by Dr. Herbert with [facility] on 11/27/16. Patient states this was her first ever syncope episode, but does recall a couple episode of presyncope in the past with no identifiable triggers or prodromal symptoms. Patient denies headaches, vision changes, lightheadness, dizziness, and tinnitus at this time. Patient also deneis chest pain, palpitations, shortness of breath, orthopnea, abdominal pain, dysuria, hematuria, bloody stool and difficulty with bowel movements. PMHx: RA dx 7yrs ago on Prednisone, Methotrexate, Folic Acid Supplementation, Tramadol PRN for pain PE dx 5yrs ago on Abixaban Hypothyoidism dx 2yrs ago on Levothyroxine IDDM dx 3yrs ago on Insulin and Metformin HTN on Lisinopril HLD - no meds listed GERD - no meds listed Recurrent UTI - Left ureteral stent inserted FHx: No hx of syncope, seizures, neruological disorders. Both mom and dad had a MT in their 70s. SHx: Patient is not and currently lives with her 40yo datereseher and the daughter's girlfriend. Active smoker: 3 cigarettes/day, No ETOH, No Illiciti Drug Use Objective Objective: General Appearance AAO X3, Cooperative, Moderate Distress with movement Skin No Rashes, There is a 4 cm linear laceration of her right forearm 2/2 to her recent fall HEENT Atraumatic, EOMI, Mucous Membrane. moist/pink Neck Supple, +2 Carotid Pulse wo Bruit, no thyromegaly Lymphatic Cervical normal Cardiovascular RRR, Normal S1, Normal S2, No Murmurs Lungs Clear to Auscultation, Normal Air Movement, no increased work of breathing Abdomen Normal Bowel Sounds, Soft, No Masses, Slight tenderness to palpation of suprapubic area, no guarding and rebound tenderness Neurological Normal Speech, Strength at 5/5 X4 Ext, Sensation Intact, Cranial Nerves 3-12 NL, Normal passive range of motion of bilateral lower extremities. Extremities No Clubbing, No Cyanosis, No Edema, Tenderness and swelling of her right middle finger specifically at her MCP and PIP joints, ROM is intact. Vascular Pulses 2+ Symmetrical Results Results: Laboratory Tests 12/10/16 0555: Lactic Acid Pending 12/10/16 0555: Sodium Pending, Potassium Pending, Chloride Pending, Carbon Dioxide Pending, Anion Gap Pending, BUN Pending, Creatinine Pending, BUN/Creatinine Ratio Pending , Troponin I Pending, CBC w Diff Pending, WBC Pending, RBC Pending, Hgb Pending, Hct Pending, MCV Pending, MCH Pending, RDW Pending, Plt Count Pending, MPV Pending, PUBS MCHC Pending 12/09/16 2350: Urinalysis LIGHT H, Urine Color STRAW, Urine Clarity HAZY H, Urine pH 6.5, Ur Specific [place] 1.010, Urine Protein 30 H, Urine Ketones NEG, Urine Nitrite POS H, Urine Bilirubin NEG, Urine Urobilinogen 0.2, Ur Leukocyte Esterase MOD H, Ur Microscopic SEDIMENT EXAMINED, Urine RBC 5-10 H, Urine WBC 25-50 H, Urine Bacteria FEW H, Urine Mucus FEW, Urine Hemoglobin MOD H, Urine Glucose NEG 12/09/16 2106: Anion Gap 11, Estimated GFR 45 L, BUN/Creatinine Ratio 17.5, Glucose 154 H, Lactic Acid 2.8 H, Calcium 9.2, Total Bilirubin 0.3, AST 20, ALT 43, Alkaline Phosphatase 129 H, Troponin I 0.02, Total Protein 6.4, Albumin 3.2 L, Globulin 3.2, Albumin/Globulin Ratio 1.0 L, CBC w Diff MAN DIFF ORDERED, RBC 4.35, MCV 91.5, MCH 29.9, RDW 15.0 H, MPV 8.6, Gran % 87.3 H, Lymphocytes % 8.2 L, Monocytes % 4.0, Eosinophils % 0.5, Basophils % 0 L, Absolute Granulocytes 23.1 H, Segmented Neutrophils 85 H, Absolute Lymphocytes 2.2, Lymphocytes 9 L, Monocytes 5, Absolute Monocytes 1.0 H, Absolute Eosinophils 0.1, Absolute Basophils 0, Platelet Estimate ADEQUATE, Normal RBC Morphology N, PUBS MCHC 32.7 L Microbiology 12/10 0555 BLOOD: Blood Culture - RECD 12/10 0152 BLOOD: Blood Culture - COLB 12/09 0220 URINE ROUT: Urine Culture - RECD Assessment/Plan Assessment: This is a 66-year-old female with PMH hypertension, hyperlipidemia, hypothyroidism, rheumatoid arthritis on daily steroids and methotrexate, osteoporosis per patient following DEXA scan with 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 Plan: Syncope * No evidence of acute intracranial injury on Head CT * Chronic interstitial lung disease identified on CT and Chest X-ray * Check orthostatic hypotension this morning * Continue Telemetry Monitoring for EKG changes (no events overnight, Sinus 55- 64, QRS: 0.08, GA: 0.18 with intermittment PACs) * Follow up on Echo Complicated UTI * IV Ceftriaxone 1000mg Daily * Numerous non-obstructive renal calculi bilaterally with a double-J ureteral stent in place on the left * No Hydronephrosis at this time * Check Blood Cultures, Urine Culture: Pending * Consult Urology to update them regarding patient's most recent sepsis 2/2 complicated UTI Acute Kidney Injury * BUN is up to 21 from 16 on * Cr is up from 0.8, now 1.2 * IV normal saline at 100ml/hr * Trend BEP Low Back Pain: * CT abdomen/pelvis showed a NEW compression fracture at L2 * Consult Interventional Radiology regarding vertebral augmentation for this new vertebral compression fracture * Cyclobenzaprine * Dilaudid Hypertension * BP stable at this time * Hold Lisinopril until renal function return to baseline Hyperlipidemia * no issues at this time Hypothyroidism * Continue Levothyroxine 0.025mg PO Rheumatoid Arthritis * no issues at this time * Continue prednisone 10mg PO daily * Hold methotrexate due to potential nephrotoxicity, will restart once patient renal functions return to baseline * Folate supplementation Insulin Dependent Diabetes Mellitus * Insulin Detemir 35 units SC BID * Fingerstick Glucose check TIDAC/HS (before meals and at bedtime) * Hold Metformin due to nephrotoxicity and patient has elevated levels of lactic acids GERD * No issues at this time Hx of Pulmonary Embolism * Abixapan 5mg PO BID Code Status: * Full Code Diet: * Regular Diet CORAL ASCENCIO 12/10/16 1036: Resident Review Statement Resident Statement: examined this patient, agreed with consultant intern, discussed with family Attending MD Review Statement Attending Sign Off Attending Cosign Statement: I have: examined this patient, reviewed avalbl EMR data, personally reviewd images, discussd w/resident/PA/SOCIAL MEDIA DEVELOPER, discussed mgmt plan w/regi, discussed mgmt plan w/CM, discussed mgmt plan w/pt, agreed w/resident/PA/SOCIAL MEDIA DEVELOPER. Other Findings: Problem List: 1) Syncope 2/2 UTI/dehydration 2) Sepsis of complicated UTI 3) Compression fracture at the level of L2 4) DALIA improving 5) Rheumatoid Arthritis on MTX and daily Prednisone 6) Hypothyroidism 7) DMT2 on Levemir and Metformin 8) H/O PE, currently on Eliquis 9) H/O Osteoporosis per patient, not currently under treatment Plan: * cont Telemetry for evaluation of syncope * Trops and EKG x 3,f/u ECHO, Orthostats neg, IV fluids NS @100ml/hr * Continue Ceftriaxone, f/u urine cultures, f/u blood cultures, consult urology has stent placed 2 weeks ago. * Pain managment of fracture with Percocet and Dilaudid, consult ortho * Fluids for DALIA, hold home Lisinopril and MTX * Continue Daily Prednisone for now. Patient will need further workup with respect to management of osteoporosis including bisphosphonates as o/p. d/wed patient. * Continue LT4 * Fingersticks, Levemir and Novolog sliding scale * Continue eliquis * DVT PPx: Eliquis * Pain Management: Percocet and Dilaudid per pain scale * Code Status: Full Code
[2016-12-10 08:21] LABS: ABSOLUTE GRANULOCYTE CT 11.7 /CUMM (1.4-6.5); ABSOLUTE LYMPH COUNT 2.9 /CUMM (1.2-3.4); ABSOLUTE MONOCYTE COUNT 0.7 /CUMM (0.10-0.60); HEMATOCRIT 38.6 % (37-47); WHITE BLOOD CELL COUNT 15.6 /CUMM (4.8-10.8)
[2016-12-10 09:31] LABS: ABSOLUTE BASOPHIL COUNT 0 /CUMM (0.0-0.2); ABSOLUTE EOSINOPHIL COUNT 0.3 /CUMM (0.0-0.7); BASOPHIL % 0.2 % (0.0-2.0); EOSINOPHIL % 1.8 % (0-5); MEAN CORPUSCULAR HGB 30.2 PG (27.0-31.0); MEAN CORPUSCULAR HGB CONC 32.9 G/DL (33.0-37.0); MEAN CORPUSCULAR VOLUME 91.9 FL (81.0-99.0); MEAN PLATELET VOLUME 9.3 FL (7.4-10.4); RBC DISTRIBUTION WIDTH 15.6 % (11.5-14.5); RED BLOOD CELL CT 4.21 /CUMM (4.20-5.40)
[2016-12-10 09:38] LABS: PLATELET COUNT 395 /CUMM (130-400)
[2016-12-10 17:33] VITALS: BP 140/92
--- NOTE | 2016-12-10 18:42 | MRI REPORT ---
EXAMINATION: MR LUMBAR SPINE WITHOUT CONTRAST CLINICAL INFORMATION: Compression fracture L2. COMPARISON: CT scan of the abdomen and pelvis 12/09/2016. TECHNIQUE: MRI of the lumbar spine without contrast was obtained using routine sequences. FINDINGS: VERTEBRAL BODIES AND PARASPINAL STRUCTURES: There is a mild dextroscoliosis. There is a compression fracture of the body of L2. There is increased STIR signal along the superior body of L2 centrally, consistent with edema. There is loss of approximately 30% central vertebral body height. There is narrowing of intervertebral disc height at L5-S1. Intervertebral disc signal is decreased at multiple levels in the lumbar spine. There is a mild retrolisthesis of L5 on S1. Overall, marrow signal is homogenous. A left ureteric stent catheter is partially demonstrated. There is a cyst at the upper pole of the right kidney. There are bilateral extrarenal pelves. The visualized pelvic structures are unremarkable. CONUS MEDULLARIS AND CAUDA EQUINA: Normal, terminating at the level of L1-L2. The lower thoracic spinal cord appears normal. The cauda equina nerve roots and filum terminale appear normal. SPINAL LEVELS: L1-L2: There is posterior protrusion of the superior body of L2 into the spinal canal, with loss of central canal caliber of approximately 30% centrally and to the left of midline. The neural foramina are patent. The facets appear normal. L2-L3: There is a diffuse disc bulge. There is no central stenosis and the neural foramina are patent. The facets appear normal. L3-L4: There is a left-sided disc protrusion without definite impingement on the extraforaminal L3 nerve root. There is mild facet arthropathy. There is no central stenosis. L4-L5: There is mild bilateral facet arthropathy with facet joint effusions. There is a diffuse disc bulge with a more focal far lateral disc protrusion on the left impinging on the extraforaminal left L4 nerve root. There is no central stenosis. L5-S1: There is a small central disc protrusion which distorts the ventral thecal sac. There may be impingement on the traversing left S1 nerve root. There are small inferior foraminal disc protrusions bilaterally. There is no central stenosis. IMPRESSION: 1. There is an acute compression fracture of the superior body of L2 as described above. 2. There are multilevel degenerative changes, most prominent on the left at L4-L5 where there is a far lateral disc protrusion impinging on the extraforaminal left L4 nerve root.
--- NOTE | 2016-12-10 19:05 | Event Note ---
Event Note Event Note: Ms France was examined for evaluatio of a rash on the left side of the face that was a few hours duration. Complained of heaviness of face w/ no obvious swelling of the face. Currently did not have any shortness of breath, chest pain , palpitations, lightheadedness. On examination, rash appeared to be on the left side of the maxillary region, size [id number], macular, erythematous, raised. As per the pt, the rash developed a rash in the last few hours, associated w/ itching. Known of allergy to penicillin and cephalosporin. Complained of rash secondary to cephalosporin use in the past, but did not have any respiratory symptoms. Vitals were stable. Discussed w/ the team and ascertained that the E coli(etiolgy for Urosepsis) not sensitive to fluoroquinolones from the last culture results, and the microbiological urine cultures are still pending from current admission. Continued ceftriaxone. Discussed w/ the pharmacy and ordered epinephrine, prn for anaphylaxis. Also informed the nursing staff to monitor the pt for any respiratory compromise or tachycardia on the monitor. Symptomatic relief w/ benadryl. Relayed the information to the night team. Will have to re-assess the progression of rash in the am.
[2016-12-10 19:13] VITALS: BP 126/74
[2016-12-11 00:13] VITALS: BP 122/68
--- NOTE | 2016-12-11 06:03 | NUR ---
LATE ENTRY; PT RECEIVED IV ROCHEPIN AND PO BENEDRYL AT 0200 PER MD ORDERS. NO ALERGIC REACTION NOTED. WILL CONTINUE TO MONITOR.
--- NOTE | 2016-12-11 07:14 | PN- Housestaff ---
MARYANNJARON 12/11/16 0714: Subjective Follow-up For: Urinary tract infection Syncopal episode Compression fracture of L2 with back pain Possible drug reaction Complaints: no complaints Subjective: Reviewed the patient lying comfortably on the bed she has no respiratory distress. The patient denies any chest pain palpitation or shortness of breath. She noted redness on her left cheek after the first dose of ceftriaxone however on subsequent dose the skin lesion has not increased. She denies any palpitation or shortness of breath while she was receiving the ceftriaxone. Review of Systems Constitutional: Denies: chills, fever. Cardiovascular: Denies: chest pain, palpitations. Respiratory: Denies: cough, short of breath. Gastrointestinal: Denies: abdominal pain, nausea, vomiting. Genitourinary: Denies: dysuria, urgency. Musculoskeletal: Reports: see HPI, back pain. Skin: Reports: see HPI (RED RASH ON THE LEFT CHEEK). Objective Last 24 Hrs of Vital Signs/I&O Vital Signs Date Time Temp Pulse Resp B/P Pulse O2 O2 Flow FiO2 Ox Delivery Rate 12/11 0013 97.5 67 20 122/68 96 CPAP 12/10 2213 98 12/10 1913 98.6 64 20 126/74 95 Room Air 12/10 1733 98.3 72 20 140/92 94 Room Air 12/10 1517 Room Air Intake & Output 12/11 0800 12/11 0000 12/10 1600 Intake Total 930 1300 Output Total 500 1600 Balance 430 -300 Intake, IV 810 800 Intake, Oral 120 500 Number 0 Bowel Movements Output, Urine 500 1600 Physical Exam General Appearance: Alert, Oriented X3, Cooperative, No Acute Distress Skin: reddish skin changes on the right cheek about 3 x 3 cm HEENT: Atraumatic, Mucous Membr. moist/pink Neck: Supple, No JVD Cardiovascular: Regular Rate, Normal S1, Normal S2, No Murmurs Lungs: Clear to Auscultation, Normal Air Movement Abdomen: Normal Bowel Sounds, Soft, No Tenderness Neurological: Normal Speech, Normal Tone Extremities: No Clubbing, No Cyanosis, No Edema Current Medications: Current Medications Sig/Cesar Start time Last Medication Dose Route Stop Time Status Admin Apixaban 5 MG BID 12/10 1000 DC 12/10 PO 0945 Ceftriaxone Sodium 1,000 MG DAILY@0200 12/11 0200 CAN IV Ceftriaxone Sodium 1,000 MG 0200 12/11 0200 AC 12/11 IV 0205 Ciprofloxacin 500 MG 0800,12/10 CAN PO 12/14 195 Cyclobenzaprine HCl 5 MG TID 12/10 0235 AC 12/10 PO 2116 Diphenhydramine HCl 25 MG Q6P PRN 12/11 1999 AC 12/11 PO 0205 Diphenhydramine HCl 50 MG ONCE PRN 12/10 1845 AC 12/10 PO 1923 Epinephrine 0.3 MG ONCE PRN 12/11 1999 AC IM Heparin Sodium 5,000 UNIT Q8 12/11 0600 AC 12/11 (Porcine) SC 0615 Hydromorphone HCl 0.5 MG Q4P PRN 12/10 0200 AC 12/10 IV 2353 Insulin Aspart 0 TIDAC 12/10 0800 AC SC Insulin Detemir 35 UNITS BID 12/10 1000 AC 12/10 SC 2115 Levothyroxine Sodium 0.025 MG DAILY AC 12/10 0700 AC 12/11 PO 0615 Oxycodone/ 1 TAB Q6P PRN 12/10 0600 AC 12/11 Acetaminophen PO 0353 Prednisone 10 MG DAILY 12/10 1000 AC 12/10 PO 0945 Sodium Chloride 1,000 ML .Q10H 12/10 0145 AC 12/11 IV 0450 Last 24 Hrs of Lab/Jarett Results Last 24 Hrs of Labs/Mics: Laboratory Tests 12/11/16 0620: Sodium Pending, Potassium Pending, Chloride Pending, Carbon Dioxide Pending, Anion Gap Pending, BUN Pending, Creatinine Pending, BUN/Creatinine Ratio Pending , CBC w Diff Pending, WBC Pending, RBC Pending, Hgb Pending, Hct Pending, MCV Pending, MCH Pending, RDW Pending, Plt Count Pending, MPV Pending, PUBS MCHC Pending 12/10/16 1245: Troponin I < 0.01 Microbiology 12/10 1245 BLOOD: Blood Culture - RECD Orders Radiology Findings: 1. There is an acute compression fracture of the superior body of L2 as described above. 2. There are multilevel degenerative changes, most prominent on the left at L4-L5 where there is a far lateral disc protrusion impinging on the extraforaminal left L4 nerve root. 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 Syncope Most likely associated with the urinary tract infection/hypovolemia. Patient has been on normal saline at 100 mL per hour since admission. She has maintained very good pressure when denies any lightheadedness or dizziness. So far there has been no any arrhythmic activity on telemetry. We will stop IV fluids and follow up echocardiogram results. UTI Patient had a UA analysis suggestive of urinary tract infection. She is status post stent placement on November 27. She has had previous UTI episodes which were resistant to quinolones. Patient started on IV ceftriaxone 1000 mg daily. So far there has been no spike of fever. Urine culture is still negative will continue to follow for any growth and to tailor antibiotic according to sensitivity. We have placed a urology consult with Dr. Gallegos but so far she has not reviewed the patient. Acute Kidney Injury BUN is up to 21 from 16 on . Cr is up from 0.8, on admission 1.2. Patient maintained on IV normal saline at 100ml/hr since admission. Repeated creatinine was within normal levels but continued on maintenance fluid. Patient has been eating and drinking well function is 75 200% of her meals and because of this we will hold the normal saline IV fluid. Will also consider restarting his home dose of lisinopril given normal renal function and stable pressure. Low Back Pain: CT abdomen/pelvis showed a NEW compression fracture at L2, this might have resulted from the fall. Patient had a repeat lumbar MRI which showed the same fracture and no additional fractures. Interventional radiologist is on board and this patient will have the table Augmentin maxwell on December 14. Will continue with pain medication and muscle relaxant Flexeril. Hypertension Patient presented with mild hypotension that responded well to fluid resuscitation. Currently BP is stable. Will consider restarting his home dose of lisinopril. Hyperlipidemia Patient has been kept on low fat diet and restarted on her home dose of statin. Hypothyroidism She has history of hypothyroidism. Continued on Levothyroxine 0.025mg PO which is her home dose. Rheumatoid Arthritis Patient has no complaints of joint pains. Her method arthritis has remained stable. We will Continue prednisone 10mg PO daily per home dose. Methotrexate she is part of her home medication were held on admission because of differential renal function. With improvement in renal function to normal level as we will restart methotrexate which she takes once a week on Mondays. We'll continue also with folate supplementations. Insulin Dependent Diabetes Mellitus Patient has history of diabetes mellitus has been kept on Insulin Detemir 35 units SC BID. She is also on Fingerstick Glucose check TIDAC/HS (before meals and at bedtime). Hospital protocol oral antidiabetic metformin is on hold. Patient fingerstick reading for the past 24 hours 122, 122, 109, 109, 143, 143, 170 Hx of Pulmonary Embolism Patient has history of pulmonary embolism that was unprovoked and occured about 2-1/2 years ago while she was in [place]. He was started on Coumadin and later changed to Apixaban, she does not follow up with any change analyst and per her knowledge she has not developed any other clots after that initial episode. Per protocol this patient was supposed to be on anticoagulation for 6-9 months and we discussed with her that she has not to be on Apixaban. We have stopped the medication and will discharge the patient home without Apixaban. Problem List: 1. Sepsis 2. Lumbar compression fracture 3. Syncope 4. Nicotine dependence 5. Hypothyroidism 6. Diabetes mellitus 7. Nephrolithiasis 8. Urinary tract infection 9. DALIA (acute kidney injury) Pain Ratin Pain Location: Lumbar area Pain Goal: Pain 4 or less Pain Plan: All 3 levels of pain medication pathway Tomorrow's Labs & Rationales: After reviewing the renal function for today if within normal range will not request lab for tomorrow DVT/Prophylaxis: mechanical, pharmacological CORAL ASCENCIO 12/11/16 1022: Attending MD Review Statement Attending Statement Attending MD Statement: examined this patient, discuss w/resident/PA/COORDINATOR HOTELS, agreed w/resident/PA/COORDINATOR HOTELS, discussed with family, reviewed EMR data (avail), discussed with nursing, discussed with case mgmt, reviewed images Attending Assessment/Plan: Other Findings: Problem List: 1) Syncope 2/2 UTI/dehydration 2) Sepsis of complicated UTI 3) Compression fracture at the level of L2 4) DALIA improving 5) Rheumatoid Arthritis on MTX and daily Prednisone 6) Hypothyroidism 7) DMT2 on Levemir and Metformin 8) H/O PE, was on Eliquis 9) H/O Osteoporosis per patient, not currently under treatment Plan: * cont Telemetry for evaluation of syncope/bradycardia HR low 50(during sleep) * Trops and EKG x 3,f/u ECHO, Orthostats neg, IV fluids NS * Continue Ceftriaxone, f/u urine cultures, f/u blood cultures, consult urology has stent placed 2 weeks ago. * Pain managment of fracture with Percocet and Dilaudid, IR consuted for vertebral augmentation. * Fluids for DALIA, hold home Lisinopril and MTX * Continue Daily Prednisone for now. Patient will need further workup with respect to management of osteoporosis including bisphosphonates as o/p. d/sat patient. * plan for kypohplasty on saturday. * Fingersticks, Levemir and Novolog sliding scale * stopped eliquis , d/sat patient, in verbal agreement. * DVT PPx * Pain Management: Percocet and Dilaudid per pain scale * Code Status: Full Code Page [p pg]
--- NOTE | 2016-12-11 07:41 | PN- Student ---
Subjective Subjective: Patient is seen and examined at bedside. Patient is doing well. She states she slept well overnight and her lower back pain was more tolerable. Physical therapy was there during my evaulation to help patient get out of bed for the first time. Patient was still unable to stand without assitance and experienced moderate amount of pain 6/10 while getting out of bed and get into her chair at this time. Patient was not able to tolerate this yesterday due to pain. Patient reports no paresthesia and loss of sensation in her bilateral lower extremities. Patient appetite is good and is tolerating PO food well. Patient was put on CPAP for DEEPTI last night but decided to take it off due to discomfort. Patient did not report orthopnea or dyspnea over night. Patient has no headaches, vision changes , tinnitus, nausea, vomiting, chest pain, palpitations, dysuria, hematuria, and difficulty with bowel movements. PMHx: RA dx 7yrs ago on Prednisone, Methotrexate, Folic Acid Supplementation, Tramadol PRN for pain PE dx 5yrs ago on Abixaban Hypothyoidism dx 2yrs ago on Levothyroxine IDDM dx 3yrs ago on Insulin and Metformin HTN on Lisinopril HLD - no meds listed GERD - no meds listed Recurrent UTI - Left ureteral stent inserted FHx: No hx of syncope, seizures, neruological disorders. Both mom and dad had a WA in their 70s. SHx: Patient is not and currently lives with her 40yo daughther and the daughter's girlfriend. Active smoker: 3 cigarettes/day, No ETOH, No Illiciti Drug Use Objective Objective: General Appearance AAO X3, Cooperative, Moderate Distress with movement Skin No Rashes, There is a 4 cm linear laceration of her right forearm 2/2 to her recent fall HEENT Atraumatic, EOMI, Mucous Membrane. moist/pink Neck Supple, +2 Carotid Pulse wo Bruit, no thyromegaly Lymphatic Cervical normal Cardiovascular RRR, Normal S1, Normal S2, No Murmurs Lungs Clear to Auscultation, Normal Air Movement, no increased work of breathing Abdomen Normal Bowel Sounds, Soft, No Masses, Slight tenderness to palpation of suprapubic area, no guarding and rebound tenderness Neurological Normal Speech, Strength at 5/5 X4 Ext, Sensation Intact, Cranial Nerves 3-12 NL, Normal passive range of motion of bilateral lower extremities. Extremities No Clubbing, No Cyanosis, No Edema, Tenderness and swelling of her right middle finger specifically at her MCP and PIP joints, ROM is intact. Vascular Pulses 2+ Symmetrical Current Medications Sig/Cesar Start time Last Medication Dose Route Stop Time Status Admin Apixaban 5 MG BID 12/10 1000 DC 12/10 PO 0945 Ceftriaxone Sodium 1,000 MG DAILY@0200 12/11 0200 CAN IV Ceftriaxone Sodium 1,000 MG 0200 12/11 0200 AC 12/11 IV 0205 Ciprofloxacin 500 MG 0800,12/10 2000 CAN PO 12/14 195 Cyclobenzaprine HCl 5 MG TID 12/10 0235 AC 12/10 PO 2116 Diphenhydramine HCl 25 MG Q6P PRN 12/11 1999 AC 12/11 PO 0205 Diphenhydramine HCl 50 MG ONCE PRN 12/10 1845 AC 12/10 PO 1923 Epinephrine 0.3 MG ONCE PRN 12/10 2000 AC IM Heparin Sodium 5,000 UNIT Q8 12/11 0600 AC 12/11 (Porcine) SC 0615 Hydromorphone HCl 0.5 MG Q4P PRN 12/10 0200 AC 12/10 IV 2353 Insulin Aspart 0 TIDAC 12/10 0800 AC SC Insulin Detemir 35 UNITS BID 12/10 1000 AC 12/10 SC 2115 Levothyroxine Sodium 0.025 MG DAILY AC 12/10 0700 AC 12/11 PO 0615 Oxycodone/ 1 TAB Q6P PRN 12/10 0600 AC 12/11 Acetaminophen PO 0353 Prednisone 10 MG DAILY 12/10 1000 AC 12/10 PO 0945 Sodium Chloride 1,000 ML .Q10H 12/10 0145 AC 12/11 IV 12/11 0800 0450 Microbiology Date/Time Procedure - Status Source Growth 12/10 1245 Blood Culture - RECD BLOOD Vital Signs Date Time Temp Pulse Resp B/P Pulse O2 O2 Flow FiO2 Ox Delivery Rate 12/11 0013 97.5 67 20 122/68 96 CPAP 12/10 2213 98 12/10 1913 98.6 64 20 126/74 95 Room Air 12/10 1733 98.3 72 20 140/92 94 Room Air 12/10 1517 Room Air Intake & Output 12/11 0800 12/11 0000 12/10 1600 Intake Total 930 1300 Output Total 500 1600 Balance 430 -300 Intake, IV 810 800 Intake, Oral 120 500 Number 0 Bowel Movements Output, Urine 500 1600 Results Results: Laboratory Tests 12/11/16 0620: Sodium Pending, Potassium Pending, Chloride Pending, Carbon Dioxide Pending, Anion Gap Pending, BUN Pending, Creatinine Pending, BUN/Creatinine Ratio Pending , CBC w Diff Pending, WBC Pending, RBC Pending, Hgb Pending, Hct Pending, MCV Pending, MCH Pending, RDW Pending, Plt Count Pending, MPV Pending, PUBS MCHC Pending 12/10/16 1245: Troponin I < 0.01 12/10/16 0555: Lactic Acid 1.9 12/10/16 0555: Anion Gap 11, Estimated GFR 55 L, BUN/Creatinine Ratio 19.0, Troponin I < 0.01, CBC w Diff NO MAN DIFF REQ, RBC 4.21, MCV 91.9, MCH 30.2, RDW 15.6 H, MPV 9.3, Gran % 75.0, Lymphocytes % 18.6 L, Monocytes % 4.4, Eosinophils % 1.8, Basophils % 0.2, Absolute Granulocytes 11.7 H, Absolute Lymphocytes 2.9, Absolute Monocytes 0.7 H, Absolute Eosinophils 0.3, Absolute Basophils 0, PUBS MCHC 32.9 L 12/10/16 0300: Troponin I Cancelled 12/10/16 0054: Lactic Acid Cancelled 12/09/16 2350: Urinalysis LIGHT H, Urine Color STRAW, Urine Clarity HAZY H, Urine pH 6.5, Ur Specific [place] 1.010, Urine Protein 30 H, Urine Ketones NEG, Urine Nitrite POS H, Urine Bilirubin NEG, Urine Urobilinogen 0.2, Ur Leukocyte Esterase MOD H, Ur Microscopic SEDIMENT EXAMINED, Urine RBC 5-10 H, Urine WBC 25-50 H, Urine Bacteria FEW H, Urine Mucus FEW, Urine Hemoglobin MOD H, Urine Glucose NEG 12/09/16 2106: Anion Gap 11, Estimated GFR 45 L, BUN/Creatinine Ratio 17.5, Glucose 154 H, Lactic Acid 2.8 H, Calcium 9.2, Total Bilirubin 0.3, AST 20, ALT 43, Alkaline Phosphatase 129 H, Troponin I 0.02, Total Protein 6.4, Albumin 3.2 L, Globulin 3.2, Albumin/Globulin Ratio 1.0 L, CBC w Diff MAN DIFF ORDERED, RBC 4.35, MCV 91.5, MCH 29.9, RDW 15.0 H, MPV 8.6, Gran % 87.3 H, Lymphocytes % 8.2 L, Monocytes % 4.0, Eosinophils % 0.5, Basophils % 0 L, Absolute Granulocytes 23.1 H, Segmented Neutrophils 85 H, Absolute Lymphocytes 2.2, Lymphocytes 9 L, Monocytes 5, Absolute Monocytes 1.0 H, Absolute Eosinophils 0.1, Absolute Basophils 0, Platelet Estimate ADEQUATE, Normal RBC Morphology N, PUBS MCHC 32.7 L Microbiology 12/10 1245 BLOOD: Blood Culture - RECD 12/10 0555 BLOOD: Blood Culture - RECD 12/09 5650 URINE ROUT: Urine Culture - RECD Assessment/Plan Assessment: This is a 66-year-old female with PMH hypertension, hyperlipidemia, hypothyroidism, rheumatoid arthritis on daily steroids and methotrexate, osteoporosis per patient following DEXA scan with her heart specialist 2 years ago, pulmonary embolism on anticoagulation, nephrolithiasis, recurrent urinary tract infections, GERD, insulin-dependant diabetes mellitus and tobacco dependance who presented to the [facility] after a syncopal episode. Plan: Syncope * No evidence of acute intracranial injury on Head CT * Chronic interstitial lung disease identified on CT and Chest X-ray * Check orthostatic hypotension this morning 9 * Continue Telemetry Monitoring for EKG changes (no events overnight, Sinus 45- 73, QRS: 0.08, UT: 0.16) * Follow up on Echo * Serial Troponins normal * Complicated UTI * IV Ceftriaxone 1000mg Daily (Patient develop skin rash following initial dose of Ceftriaxone but had no respiratory distress, rash has since resolved and has not reappeared on subsequent doses. IM epinephrine was ordered, prn for anaphylaxis) * Leukocytosis trending down (26.5 -> 15.6 -> 11.9) with an absolute granulocyte count of 7.4 down from 23.1 * Numerous non-obstructive renal calculi bilaterally with a double-J ureteral stent in place on the left on abdominal and pelvis CT. * No Hydronephrosis at this time * Check Blood Cultures, Urine Culture: Pending * Consult Urology to update them regarding patient's most recent sepsis 2/2 complicated UTI Acute Kidney Injury * BUN is down from 21, now 19 * Cr is down from 1.2, now 1.0 * IV normal saline at 100ml/hr * Trend BEP Low Back Pain: * CT abdomen/pelvis showed a NEW compression fracture at L2 * Repeat Lumbar MRI confirmed the fracture and showed no adjacent or new fractures and there are multilevel degenerative changes, most prominent on the left at L4-L5 where there is a far lateral disc protrusion impinging on the extraforaminal left L4 nerve root. * Interventional Radiology is consulted and agreed to perform a vertebral augmentation on Saturday12/14/16. * Continue with muscle relaxant: Cyclobenzaprine 5mg PO TID * Hydromorphone 0.5mg IV PRN Q4P for pain * Oxycodone/Acetaminophen 1 tab PO PRN Q6P for pain Hypertension * BP stable at this time (122/68 most recent vitals) * Hold Lisinopril until renal function return to baseline Hyperlipidemia * no issues at this time Hypothyroidism * Continue Levothyroxine 0.025mg PO Rheumatoid Arthritis * no issues at this time * Continue prednisone 10mg PO daily * Hold methotrexate due to potential nephrotoxicity, will restart once patient renal functions return to baseline * Folate supplementation Insulin Dependent Diabetes Mellitus * Insulin Detemir 35 units SC BID * Fingerstick Glucose check TIDAC/HS (before meals and at bedtime) * Patient fingerstick reading for the past 24 hours 122, 122, 109, 109, 143, 143 , 170 * Hold Metformin due to nephrotoxicity and patient has elevated levels of lactic acids GERD * No issues at this time Hx of Unprovoked Pulmonary Embolism * Stopped Abixapan 5mg PO BID because patient's unprovoked PE was 2.5 years ago and has been asymptomatic and compliant to medication since then. According to treatment guidelines, patient should only be on anticoagulation for 6-9months post PE so patient was informed and decided to stopped the medication. Code Status: * Full Code Diet: * Low Fat Diet
[2016-12-11 07:49] LABS: ABSOLUTE BASOPHIL COUNT 0 /CUMM (0.0-0.2); ABSOLUTE EOSINOPHIL COUNT 0.3 /CUMM (0.0-0.7); ABSOLUTE GRANULOCYTE CT 7.4 /CUMM (1.4-6.5); ABSOLUTE LYMPH COUNT 3.4 /CUMM (1.2-3.4); ABSOLUTE MONOCYTE COUNT 0.7 /CUMM (0.10-0.60); BASOPHIL % 0.4 % (0.0-2.0); EOSINOPHIL % 2.9 % (0-5); GRANULOCYTE % 62.1 % (42.2-75.2); HEMATOCRIT 38.9 % (37-47); MEAN CORPUSCULAR HGB 29.8 PG (27.0-31.0); MEAN CORPUSCULAR HGB CONC 32.4 G/DL (33.0-37.0); MEAN PLATELET VOLUME 8.8 FL (7.4-10.4); PLATELET COUNT 330 /CUMM (130-400); RBC DISTRIBUTION WIDTH 14.6 % (11.5-14.5); RED BLOOD CELL CT 4.23 /CUMM (4.20-5.40); WHITE BLOOD CELL COUNT 11.9 /CUMM (4.8-10.8)
[2016-12-11 08:21] VITALS: BP 135/64
--- NOTE | 2016-12-11 09:40 | INTERVENTIONAL RADIOLOGY RPT ---
CONSULTATION FOR VERTEBRAL AUGMENTATION OF L2 COMPRESSION DEFORMITY REFERRING PHYSICIAN: Estrada Obando MD HISTORY OF PRESENT ILLNESS: Ms. [place] is a very pleasant 66-year-old female who sustained a fall approximately 2 days ago which resulted in severe lower back pain. The patient is osteoporotic and is also taking daily steroids secondary to rheumatoid arthritis. CT imaging of the abdomen and pelvis demonstrated a new compression deformity of the second lumbar vertebral body. The patient describes 10 out of 10 low back pain, not relieved by analgesics. PAST MEDICAL HISTORY: 1. Osteoporosis. 2. Hypertension. 3. Hyperlipidemia. 4. Hypothyroidism. 5. Rheumatoid arthritis. 6. Nephrolithiasis. Recurrent urinary tract infections. 7. Insulin-dependent diabetes. 8. Pulmonary embolism on anticoagulation. PAST SURGICAL HISTORY: 1. Lithotripsy. 2. Cardiac catheterization (November 2014). CURRENT MEDICATIONS: 1. Eliquis 5 mg tablet by mouth twice a day. 2. Folic acid 1 mg tablet by mouth daily. 3. Levemir 100 units/mL vial, 35 units subcutaneous twice a day. 4. Levothyroxine sodium 25 mg tablet by mouth daily. 5. Lisinopril 5 mg tablet by mouth daily. 6. Metformin HCL 1000 mg tablet by mouth twice a day. 7. Methotrexate 2.5 mg tablet 6 tabs by mouth every Saturday. 8. Prednisone 10 mg tablet by mouth daily. 9. Percocet 1 tab by mouth every 6 hours when necessary pain. ALLERGIES: CEPHALOSPORINS (facial rash) PENICILLINS (vomiting) FAMILY HISTORY: Noncontributory. SOCIAL HISTORY: Alcohol Use: Denies drinking. Tobacco Use: Current every day smoker. Lives at home with spouse and child. REVIEW OF SYSTEMS: General: Patient reports no fevers, chills or other constitutional symptoms. Cardiovascular: Reports syncope. Patient denies chest pain, irregular heartbeats, or palpitations. Pulmonary: Patient denies any history of pneumonia, chronic cough, orthopnea, wheezing, shortness of breath or production of sputum. Neurological: Patient denies history of headaches, no muscle spasms, no loss of consciousness. Hematologic: Denies history of anemia, bleeding tendencies or clotting tendencies. Anesthesia: Patient denies any previous reaction to anesthetics or sedation. Gastrointestinal: Denies nausea, no vomiting, constipation or diarrhea. Genitourinary: Reports urinary frequency. Denies dysuria, hematuria. Musculoskeletal: Reports back pain and generalized muscle pain. Skin: Patient reports no skin rash or pruritus. Patient denies any new skin lesions. PHYSICAL EXAMINATION: Blood Pressure: 127/60 Pulse: 60 Temperature: 98.0 F Weight: 150 lbs O2 Saturation: 97 room air General: Pleasant. Alert and oriented x3. Obese. Pain with movement. HEENT: Normocephalic atraumatic, EOMI, mucous membranes moist. Neck: Supple, no lymphadenopathy. Pulmonary: breath sounds are clear to auscultation globally. No wheezes rales or rhonchi. CV: Regular rate and rhythm. No murmurs, rubs or gallops. Abdomen: Soft, nontender. Positive bowel sounds. Musculoskeletal: Focal pain on palpation of the upper/mid lumbar spine. LABORATORY: Platelets: 249 INR: Pending Diagnostic imaging: CT abdomen and pelvis 12/09/2016- interval development of new L2 compression deformity. Lumbar spine MRI 12/10/2016-increased STIR signal within the superior endplate of L2 consistent with acute fracture. ASSESSMENT: 66-year-old female with acute L2 compression deformity resulting in approximately 25% decreased vertebral body height. No significant retropulsion. The patient is in severe debilitating pain (10/10) with minimal motion (rolling in bed). The upper/mid lumbar spine is tender to palpation. I believe the patient is unlikely to heal with conservative management due to her severe osteoporosis. I believe the patient is a good candidate for vertebral augmentation for pain reduction, fracture stabilization and height preservation. The procedure was discussed in detail with the patient and her son. The potential benefits and risks were discussed in addition to the alternative treatments and the possibility of not treating the fracture. The patient and her son expressed understanding of the risks and benefits and gave written consent to perform the vertebral augmentation. PLAN: 1. Vertebral augmentation to be performed on 12/14/2016 with anesthesia. 2. Patient to received anesthesia consult tomorrow (December 11). 3. Patient must be off Eliquis for three full days prior to the procedure, hence the procedure date of December 14. This was discussed with Dr. Obando. The plan was for discontinuation of Eliquis with the possibility of placing the patient on IV heparin. It was discussed that IV heparin would have to be held approximately 4 hours prior to vertebral augmentation procedure on Saturday.
[2016-12-11 16:22] VITALS: BP 139/62
--- NOTE | 2016-12-11 18:02 | ECHOCARDIOGRAM REPORT ---
JEFF CHIN Age: 66 : 1950 Gender: F Exam Date: 12/10/2016 20:03 Exam Location: [facility] Ht (in): 64 Wt (lb): 170 BSA: 1.89 BP: 140 / 92 Ordering Physician: CHALINO LINDSEY MD Referring Physician: Jon Vega MD Technologist: Regla Martines [facility] Room Number: 173 Indications: PRESYNCOPE/SYNCOPE Rhythm: Sinus Technical Quality: Good FINDINGS Left Ventricle Normal size left ventricle. . Normal left ventricular ejection fraction visually estimated at >60%. Normal left ventricular wall motion. Normal left ventricular wall thickness. Right Ventricle Normal right ventricular size and function. Right Atrium Normal right atrial size. Left Atrium Mild left atrial dilatation. Mitral Valve Mild mitral annular calcification. Trace mitral regurgitation. Aortic Valve Diffuse thickening (sclerosis) of the aortic valve cusps without reduced excursion. No aortic stenosis. No aortic regurgitation. Tricuspid Valve Tricuspid valve not well visualized, grossly normal. Trace tricuspid regurgitation. Pulmonic Valve Pulmonic valve not well visualized, grossly normal. Pericardium No pericardial effusion. Great Vessels Normal size aortic root. CONCLUSIONS Normal size left ventricle. Normal left ventricular ejection fraction visually estimated at > 60%. Normal left ventricular wall thickness. Mild left atrial dilatation. Trace mitral regurgitation. Trace tricuspid regurgitation. Jon Vega M.D. (Electronically Signed) Final Date: 11 December 2016 18:01 MEASUREMENTS (Male / Female) Normal Values 2D ECHO LV Diastolic Diameter PLAX 4.8 cm 4.2 - 5.9 / 3.9 - 5.3 cm LV Systolic Diameter PLAX 2.4 cm 2.1 - 4.0 cm LV Fractional Shortening PLAX 50.0 % 25 - 46 % LV Ejection Fraction 2D Teich 81.3 % IVS Diastolic Thickness 1.1 cm LVPW Diastolic Thickness 1.1 cm LV Relative Wall Thickness 0.5 RV Internal Dim ED PLAX 2.7 cm 1.9 - 3.8 cm LVOT Diameter 2.1 cm Aortic Root Diameter 3.2 cm LA Systolic Diameter LX 4.4 cm 3.0 - 4.0 / 2.7 - 3.8 cm LA Volume 34.0 cm 18 - 58 / 22 - 52 cm Ascending Aorta Diameter 3.1 cm DOPPLER AV Peak Velocity 167.0 cm/s AV Peak Gradient 11.2 mmHg AV Mean Velocity 107.0 cm/s AV Mean Gradient 5.0 mmHg AV Velocity Time Integral 30.7 cm LVOT Peak Velocity 167.0 cm/s LVOT Peak Gradient 11.2 mmHg LVOT Mean Velocity 100.0 cm/s LVOT Mean Gradient 5.0 mmHg LVOT Velocity Time Integral 28.6 cm LVOT Stroke Volume 99.1 cm AV Area Cont Eq vti 3.2 cm AV Area Cont Eq pk 3.5 cm MV Peak Velocity 127.0 cm/s MV Peak Gradient 6.5 mmHg MV Mean Velocity 50.0 cm/s MV Mean Gradient 1.0 mmHg Mitral E Point Velocity 63.2 cm/s Mitral A Point Velocity 74.5 cm/s Mitral E to A Ratio 0.8 MV PHT Velocity 83.4 cm/s MV Deceleration [place] 381.0 cm/s MV Pressure Half Time 65.7 ms MV Area PHT 3.4 cm MV Deceleration Time 275.0 ms TR Peak Velocity 229.0 cm/s TR Peak Gradient 21.0 mmHg Right Atrial Pressure 5.0 mmHg Pulmonary Artery Systolic Pressu 26.0 mmHg Right Ventricular Systolic Press 26.0 mmHg PV Peak Velocity 106.0 cm/s PV Peak Gradient 4.5 mmHg PV Mean Velocity 78.9 cm/s PV Mean Gradient 3.0 mmHg PV Velocity Time Integral 24.4 cm LV E' Lateral Velocity 10.7 cm/s Mitral E to LV E' Lateral Ratio 5.9 LV E' Septal Velocity 13.4 cm/s Mitral E to LV E' Septal Ratio 4.7
[2016-12-11 22:25] VITALS: BP 132/78
--- NOTE | 2016-12-12 07:32 | PN- Housestaff ---
JARON WOLF 12/12/16 0732: Subjective Follow-up For: Urinary tract infection, syncopal episode compression fracture of L2 Back pain Complaints: continue us to have back pain Tele-Events Since Last Visit: Sinus rhythm 45-69 bpm bradycardic as low as 45 but asymptomatic Subjective: Reviewed the patient seated on the bed eating her breakfast she continues to complain of back pain, she is getting just mild temporary relief from the pain medications. We will make the oxycodone to go around the clock rather than when necessary and start her on gabapentin for neuropathy pain because of possible pinching from the compression fracture. Review of Systems Constitutional: Denies: chills, fever. Cardiovascular: Denies: chest pain, palpitations. Respiratory: Denies: cough, short of breath. Gastrointestinal: Denies: abdominal pain, nausea, vomiting. Genitourinary: Denies: no symptoms. Musculoskeletal: Denies: no symptoms. Skin: Reports: see HPI (reddish chick). Objective Last 24 Hrs of Vital Signs/I&O Vital Signs Date Time Temp Pulse Resp B/P Pulse O2 O2 Flow FiO2 Ox Delivery Rate 12/12 0800 97.9 76 20 160/90 96 Room Air 12/12 0451 53 95 12/11 2225 97.6 67 18 132/78 99 Room Air 12/11 1622 98.0 58 139/62 96 Room Air Intake & Output 12/12 1600 12/12 0800 12/12 0000 Intake Total 240 720 Output Total 900 900 Balance -660 -180 Intake, Oral 240 720 Number 0 0 Bowel Movements Output, Urine 900 900 Physical Exam General Appearance: Alert, Oriented X3, Cooperative, No Acute Distress Skin: No Breakdown HEENT: Atraumatic, Mucous Membr. moist/pink Neck: Supple, No JVD Cardiovascular: Regular Rate, Normal S1, Normal S2 Lungs: Clear to Auscultation Abdomen: Normal Bowel Sounds, Soft, No Tenderness Neurological: Normal Speech, Normal Tone Extremities: No Clubbing, No Cyanosis, No Edema Current Medications: Current Medications Sig/Cesar Start time Last Medication Dose Route Stop Time Status Admin Ceftriaxone Sodium 1,000 MG 0200 12/11 0200 AC 12/12 IV 0228 Cyclobenzaprine HCl 5 MG TID 12/10 0235 AC 12/12 PO 0917 Diphenhydramine HCl 1 CHANDA Q6 12/12 0849 AC TOP Diphenhydramine HCl 25 MG Q6P PRN 12/10 2000 AC 12/12 PO 0228 Diphenhydramine HCl 50 MG ONCE PRN 12/10 1845 AC 12/10 PO 1923 Docusate Sodium 100 MG DAILY 12/11 1415 AC 12/12 PO 0917 Epinephrine 0.3 MG ONCE PRN 12/10 2000 AC IM Heparin Sodium 5,000 UNIT Q8 12/11 0600 AC 12/12 (Porcine) SC 0508 Hydromorphone HCl 0.5 MG Q4P PRN 12/10 0200 AC 12/12 IV 0916 Insulin Aspart 0 TIDAC 12/10 0800 AC 12/11 SC 1713 Insulin Detemir 10 UNITS ONCE ONE 12/11 2044 DC 12/11 SC 12/11 Insulin Detemir 35 UNITS BID 12/10 1000 AC 12/12 SC 0916 Levothyroxine Sodium 0.025 MG DAILY AC 12/10 0700 AC 12/12 PO 0506 Oxycodone HCl 10 MG Q12 12/12 1000 DC 12/12 PO 0917 Oxycodone/ 1 TAB Q6 12/12 1200 AC Acetaminophen PO Oxycodone/ 1 TAB Q6P PRN 12/10 0600 DC 12/11 Acetaminophen PO 2050 Patient Medication 1 ED .STK-MED ONE 12/11 1354 AL Teaching ED 12/11 1355 Polyethylene Glycol 17 GM DAILY 12/12 1000 AC 12/12 PO 0917 Prednisone 10 MG DAILY 12/10 1000 AC 12/12 PO 0917 Last 24 Hrs of Lab/Jarett Results Last 24 Hrs of Labs/Mics: Laboratory Tests 12/12/16 0610: PT 10.5, INR 1.00, APTT 26 Orders Fingersticks (last 24 hrs): 90, 142, 126, 126, 102, 81, 81, 144 Assessment/Plan Assessment: This is a 66-year-old female with PMH hypertension, hyperlipidemia, hypothyroidism, rheumatoid arthritis on daily steroids and methotrexate, osteoporosis per patient following DEXA scan 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 Syncope Most likely associated with the urinary tract infection/hypovolemia. Patient has been on normal saline at 100 mL per hour since admission. She has maintained very good pressure when denies any lightheadedness or dizziness. So far there has been no any arrhythmic activity on telemetry. Blood pressure high AST 160/90, restart home dose of lisinopril. UTI Patient had a UA analysis suggestive of urinary tract infection. She is status post stent placement on November 27. She has had previous UTI episodes which were resistant to quinolones. Patient started on IV ceftriaxone 1000 mg daily. So far there has been no spike of fever. Urine culture is still negative will continue to follow for any growth and to tailor antibiotic according to sensitivity. We have placed a urology consult with Dr. Gallegos but so far she has not reviewed the patient. Continue to follow-up urologist recommendations. Acute Kidney Injury BUN is up to 21 from 16 on . Cr is up from 0.8, on admission 1.2. Patient maintained on IV normal saline at 100ml/hr since admission. Repeated creatinine was within normal levels but continued on maintenance fluid. Patient has been eating and drinking well. Will also consider restarting his home dose of lisinopril given normal renal function and pressure slight increase. Low Back Pain: CT abdomen/pelvis showed a NEW compression fracture at L2, this might have resulted from the fall. Patient had a repeat lumbar MRI which showed the same fracture and no additional fractures. Interventional radiologist is on board and this patient will have vertebral augmentation December 14. Will continue with pain medication and muscle relaxant Flexeril, Started on Gabapentin 300mg QPM. Hypertension Patient presented with mild hypotension that responded well to fluid resuscitation. Currently BP is stable. Patient has been started on home dose of lisinopril 5 mg daily. Hyperlipidemia Patient has been kept on low fat diet and restarted on her home dose of statin. Hypothyroidism She has history of hypothyroidism. Continued on Levothyroxine 0.025mg PO which is her home dose. Rheumatoid Arthritis Patient has no complaints of joint pains. Her method arthritis has remained stable. We will Continue prednisone 10mg PO daily per home dose. Methotrexate she is part of her home medication were held on admission because of differential renal function. With improvement in renal function to normal level as we will restart methotrexate which she takes once a week on Mondays. We'll continue also with folate supplementations. Insulin Dependent Diabetes Mellitus Patient has history of diabetes mellitus has been kept on Insulin Detemir 35 units SC BID. She is also on Fingerstick Glucose check TIDAC/HS (before meals and at bedtime). Hospital protocol oral antidiabetic metformin is on hold. Patient fingerstick reading for the past 24 has remained stable Hx of Pulmonary Embolism Patient has history of pulmonary embolism that was unprovoked and occured about 2-1/2 years ago while she was in [place]. He was started on Coumadin and later changed to Apixaban, she does not follow up with any seo analyst and per her knowledge she has not developed any other clots after that initial episode. Per protocol this patient was supposed to be on anticoagulation for 6-9 months and we discussed with her that she has not to be on Apixaban. We have stopped the medication and will discharge the patient home without Apixaban. Problem List: 1. DALIA (acute kidney injury) 2. Lumbar compression fracture 3. Hypothyroidism 4. Diabetes mellitus 5. Sepsis Pain Ratin Pain Location: Back pain Pain Goal: Pain 4 or less Pain Plan: All 3 levels pain medications including gabapentin Tomorrow's Labs & Rationales: None DVT/Prophylaxis: mechanical, pharmacological CORAL ASCENCIO 12/12/16 1000: Objective Last 24 Hrs of Vital Signs/I&O Vital Signs Date Time Temp Pulse Resp B/P Pulse O2 O2 Flow FiO2 Ox Delivery Rate 12/12 0800 97.9 76 20 160/90 96 Room Air 12/12 0451 53 95 12/11 2225 97.6 67 18 132/78 99 Room Air 12/11 1622 98.0 58 139/62 96 Room Air 12/11 1028 Room Air Intake & Output 12/12 1600 12/12 0800 12/12 0000 Intake Total 240 720 Output Total 900 900 Balance -660 -180 Intake, Oral 240 720 Number 0 0 Bowel Movements Output, Urine 900 900 Attending MD Review Statement Attending Statement Attending MD Statement: examined this patient, discuss w/resident/PA/TOBACCO BLENDER, agreed w/resident/PA/TOBACCO BLENDER, discussed with family, reviewed EMR data (avail), discussed with nursing, discussed with case mgmt, reviewed images Attending Assessment/Plan: Other Findings: Problem List: 1) Syncope 2/2 UTI/dehydration 2) Sepsis of complicated UTI 3) Compression fracture at the level of L2 4) DALIA improving 5) Rheumatoid Arthritis on MTX and daily Prednisone 6) Hypothyroidism 7) DMT2 on Levemir and Metformin 8) H/O PE, was on Eliquis 9) H/O Osteoporosis per patient, not currently under treatment Plan: * cont Telemetry for evaluation of syncope/bradycardia HR low 50(during sleep) * Continue Ceftriaxone, urine cultures and blood cultures negative so far. consult urology has stent placed 2 weeks ago. * Pain managment of fracture with Percocet and Dilaudid, IR consuted for vertebral augmentation. * Fluids for DALIA, hold home Lisinopril and MTX * Continue Daily Prednisone for now. Patient will need further workup with respect to management of osteoporosis including bisphosphonates as o/p. d/sat patient. * plan for kypohplasty on saturday. * Fingersticks, Levemir and Novolog sliding scale * stopped eliquis , d/sat patient, in verbal agreement. * DVT PPx * Pain Management: Percocet and Dilaudid per pain scale * Code Status: Full Code
[2016-12-12 08:00] VITALS: BP 160/90
--- NOTE | 2016-12-12 08:06 | PN- Student ---
Subjective Subjective: Patient is seen and examined at bedside. Patient is doing well. She is still experiencing moderate levels of pain with cough, movement and prolong rest (6-7/ 10) Patient states her dialudid helps with the pain for 2 hours and percocet only helps with the pain for 1 hour. She is still having asympomatic bradycardia overnight (45bpm), but patient has no issues at this time. She denies h/a vision change, chest pain, palpitation, shortness of breath, abdominal pain, dysuria and hematuria. She still has not yet had a bowel movement. PMHx: RA dx 7yrs ago on Prednisone, Methotrexate, Folic Acid Supplementation, Tramadol PRN for pain PE dx 5yrs ago on Abixaban Hypothyoidism dx 2yrs ago on Levothyroxine IDDM dx 3yrs ago on Insulin and Metformin HTN on Lisinopril HLD - no meds listed GERD - no meds listed Recurrent UTI - Left ureteral stent inserted FHx: No hx of syncope, seizures, neruological disorders. Both mom and dad had a IL in their 70s. SHx: Patient is not and currently lives with her 40yo palmer and the daughter's girlfriend. Active smoker: 3 cigarettes/day, No ETOH, No Illiciti Drug Use Objective Objective: General Appearance AAO X3, Cooperative, Moderate Distress with movement Skin No Rashes. HEENT Atraumatic, EOMI, Mucous Membrane. moist/pink Neck Supple, +2 Carotid Pulse wo Bruit, no thyromegaly Lymphatic Cervical normal Cardiovascular RRR, Normal S1, Normal S2, No Murmurs Lungs Clear to Auscultation, Normal Air Movement, no increased work of breathing Abdomen Normal Bowel Sounds, Soft, No Masses, Slight tenderness to palpation of suprapubic area, no guarding and rebound tenderness Neurological Normal Speech, Strength at 5/5 X4 Ext, Sensation Intact, Cranial Nerves 3-12 NL, Normal passive range of motion of bilateral lower extremities. Extremities No Clubbing, No Cyanosis, No Edema, Tenderness and swelling of her right middle finger specifically at her MCP and PIP joints, ROM is intact. Vascular Pulses 2+ Symmetrical Current Medications Sig/Cesar Start time Last Medication Dose Route Stop Time Status Admin Ceftriaxone Sodium 1,000 MG 0200 12/11 020 AC 12/12 IV 0228 Cyclobenzaprine HCl 5 MG TID 12/10 0235 AC 12/11 PO 2050 Diphenhydramine HCl 25 MG Q6P PRN 12/10 2000 AC 12/12 PO 0228 Diphenhydramine HCl 50 MG ONCE PRN 12/10 1845 AC 12/10 PO 1923 Docusate Sodium 100 MG DAILY 12/11 1415 AC 12/11 PO 1420 Epinephrine 0.3 MG ONCE PRN 12/10 2000 AC IM Heparin Sodium 5,000 UNIT Q8 12/11 0600 AC 12/12 (Porcine) SC 0508 Hydromorphone HCl 0.5 MG Q4P PRN 12/10 0200 AC 12/12 IV 0504 Insulin Aspart 0 TIDAC 12/10 0800 AC 12/11 SC 1713 Insulin Detemir 10 UNITS ONCE ONE 12/11 2044 DC 12/11 SC 12/11 Insulin Detemir 35 UNITS BID 12/10 1000 AC 12/11 SC 0900 Levothyroxine Sodium 0.025 MG DAILY AC 12/10 0700 AC 12/12 PO 0506 Oxycodone/ 1 TAB Q6P PRN 12/10 06 AC 12/11 Acetaminophen PO 2050 Patient Medication 1 ED .STK-MED ONE 12/11 1354 DC Teaching ED 12/11 1355 Polyethylene Glycol 17 GM DAILY 12/12 1000 AC PO Prednisone 10 MG DAILY 12/10 1000 AC 12/11 PO 0900 Vital Signs Date Time Temp Pulse Resp B/P Pulse O2 O2 Flow FiO2 Ox Delivery Rate 12/12 0451 53 95 12/11 2225 97.6 67 18 132/78 99 Room Air 12/11 1622 98.0 58 139/62 96 Room Air 12/11 1028 Room Air 12/11 0821 97.6 49 18 135/64 94 Room Air Intake & Output 12/12 1600 12/12 0800 12/12 0000 Intake Total 240 720 Output Total 900 900 Balance -660 -180 Intake, Oral 240 720 Number 0 0 Bowel Movements Output, Urine 900 900 Results Results: Laboratory Tests 12/12/16 0610: PT Pending, INR Pending, APTT Pending 12/11/16 0620: Anion Gap 9, Estimated GFR > 60, BUN/Creatinine Ratio 18.8, CBC w Diff NO MAN DIFF REQ, RBC 4.23, MCV 92.0, MCH 29.8, RDW 14.6 H, MPV 8.8, Gran % 62.1, Lymphocytes % 28.6, Monocytes % 6.0, Eosinophils % 2.9, Basophils % 0.4, Absolute Granulocytes 7.4 H, Absolute Lymphocytes 3.4, Absolute Monocytes 0.7 H, Absolute Eosinophils 0.3, Absolute Basophils 0, PUBS MCHC 32.4 L 12/10/16 1245: Troponin I < 0.01 12/10/16 0555: Lactic Acid 1.9 12/10/16 0555: Anion Gap 11, Estimated GFR 55 L, BUN/Creatinine Ratio 19.0, Troponin I < 0.01, CBC w Diff NO MAN DIFF REQ, RBC 4.21, MCV 91.9, MCH 30.2, RDW 15.6 H, MPV 9.3, Gran % 75.0, Lymphocytes % 18.6 L, Monocytes % 4.4, Eosinophils % 1.8, Basophils % 0.2, Absolute Granulocytes 11.7 H, Absolute Lymphocytes 2.9, Absolute Monocytes 0.7 H, Absolute Eosinophils 0.3, Absolute Basophils 0, PUBS MCHC 32.9 L 12/10/16 0300: Troponin I Cancelled 12/10/16 0054: Lactic Acid Cancelled 12/09/16 2350: Urinalysis LIGHT H, Urine Color STRAW, Urine Clarity HAZY H, Urine pH 6.5, Ur Specific [place] 1.010, Urine Protein 30 H, Urine Ketones NEG, Urine Nitrite POS H, Urine Bilirubin NEG, Urine Urobilinogen 0.2, Ur Leukocyte Esterase MOD H, Ur Microscopic SEDIMENT EXAMINED, Urine RBC 5-10 H, Urine WBC 25-50 H, Urine Bacteria FEW H, Urine Mucus FEW, Urine Hemoglobin MOD H, Urine Glucose NEG 12/09/16 2106: Anion Gap 11, Estimated GFR 45 L, BUN/Creatinine Ratio 17.5, Glucose 154 H, Lactic Acid 2.8 H, Calcium 9.2, Total Bilirubin 0.3, AST 20, ALT 43, Alkaline Phosphatase 129 H, Troponin I 0.02, Total Protein 6.4, Albumin 3.2 L, Globulin 3.2, Albumin/Globulin Ratio 1.0 L, CBC w Diff MAN DIFF ORDERED, RBC 4.35, MCV 91.5, MCH 29.9, RDW 15.0 H, MPV 8.6, Gran % 87.3 H, Lymphocytes % 8.2 L, Monocytes % 4.0, Eosinophils % 0.5, Basophils % 0 L, Absolute Granulocytes 23.1 H, Segmented Neutrophils 85 H, Absolute Lymphocytes 2.2, Lymphocytes 9 L, Monocytes 5, Absolute Monocytes 1.0 H, Absolute Eosinophils 0.1, Absolute Basophils 0, Platelet Estimate ADEQUATE, Normal RBC Morphology N, PUBS MCHC 32.7 L Microbiology 12/10 1245 BLOOD: Blood Culture - RES 12/10 0555 BLOOD: Blood Culture - RES 12/09 5860 URINE ROUT: Urine Culture - RES Assessment/Plan Assessment: This is a 66-year-old female with PMH hypertension, hyperlipidemia, hypothyroidism, rheumatoid arthritis on daily steroids and methotrexate, osteoporosis per patient following DEXA scan 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 Patient had no acute events overnight. Patient is doing well at this time. Plan: Syncope * No evidence of acute intracranial injury on Head CT * Chronic interstitial lung disease identified on CT and Chest X-ray * Check orthostatic hypotension this morning 9 * Continue Telemetry Monitoring for EKG changes (no events overnight, Sinus 45- 73, QRS: 0.08, [place]: 0.16) * Follow up on Echo * Serial Troponins normal * Complicated UTI * IV Ceftriaxone 1000mg Daily (Patient develop skin rash following initial dose of Ceftriaxone but had no respiratory distress, rash has since resolved and has not reappeared on subsequent doses. IM epinephrine was ordered, prn for anaphylaxis) * Leukocytosis trending down (26.5 -> 15.6 -> 11.9) with an absolute granulocyte count of 7.4 down from 23.1 * Numerous non-obstructive renal calculi bilaterally with a double-J ureteral stent in place on the left on abdominal and pelvis CT. * No Hydronephrosis at this time * Check Blood Cultures, Urine Culture: No growth at this time * Consult Urology to update them regarding patient's most recent sepsis 2/2 complicated UTI Acute Kidney Injury * BUN is down from 21, now 19 * Cr is down from 1.2, now 1.0 * IV normal saline at 100ml/hr * Electrolytes normal Low Back Pain: * CT abdomen/pelvis showed a NEW compression fracture at L2 * Repeat Lumbar MRI confirmed the fracture and showed no adjacent or new fractures and there are multilevel degenerative changes, most prominent on the left at L4-L5 where there is a far lateral disc protrusion impinging on the extraforaminal left L4 nerve root. * Interventional Radiology is consulted and agreed to perform a vertebral augmentation on Saturday12/14/16. * Continue with muscle relaxant: Cyclobenzaprine 5mg PO TID * Hydromorphone 0.5mg IV PRN Q4P for pain * Oxycodone/Acetaminophen 1 tab PO Standing dose Q6P Hypertension * BP stable at this time (122/68 most recent vitals) * Start Lisinopril Hyperlipidemia * no issues at this time Hypothyroidism * Continue Levothyroxine 0.025mg PO Rheumatoid Arthritis * no issues at this time * Continue prednisone 10mg PO daily * Hold methotrexate due to potential nephrotoxicity, will restart once patient renal functions return to baseline * Folate supplementation Insulin Dependent Diabetes Mellitus * Insulin Detemir 35 units SC BID * Fingerstick Glucose check TIDAC/HS (before meals and at bedtime) * Patient fingerstick reading for the past 24 hours 122, 122, 109, 109, 143, 143 , 170 * Hold Metformin due to nephrotoxicity and patient has elevated levels of lactic acids GERD * No issues at this time Hx of Unprovoked Pulmonary Embolism * Stopped Abixapan 5mg PO BID because patient's unprovoked PE was 2.5 years ago and has been asymptomatic and compliant to medication since then. According to treatment guidelines, patient should only be on anticoagulation for 6-9months post PE so patient was informed and decided to stopped the medication. Code Status: * Full Code Diet: * Low Fat Diet
[2016-12-12 08:17] LABS: PT 10.5 SEC (9.4-12.5); PTT 26 SEC (25-37)
--- NOTE | 2016-12-12 13:48 | PN- Student ---
Subjective Subjective: Patient is seen and examined at bedside. Patient is doing well. She is still experiencing moderate levels of pain with cough, movement and prolong rest (6-7/ 10) Patient states her dialudid helps with the pain for 2 hours and percocet only helps with the pain for 1 hour. She is still having asympomatic bradycardia overnight (45bpm), but patient has no issues at this time. She denies h/a vision change, chest pain, palpitation, shortness of breath, abdominal pain, dysuria and hematuria. She still has not yet had a bowel movement. PMHx: RA dx 7yrs ago on Prednisone, Methotrexate, Folic Acid Supplementation, Tramadol PRN for pain PE dx 5yrs ago on Abixaban Hypothyoidism dx 2yrs ago on Levothyroxine IDDM dx 3yrs ago on Insulin and Metformin HTN on Lisinopril HLD - no meds listed GERD - no meds listed Recurrent UTI - Left ureteral stent inserted FHx: No hx of syncope, seizures, neruological disorders. Both mom and dad had a [place] in their 70s. SHx: Patient is not and currently lives with her 40yo palmer and the daughter's girlfriend. Active smoker: 3 cigarettes/day, No ETOH, No Illiciti Drug Use Objective Objective: General Appearance AAO X3, Cooperative, Moderate Distress with movement Skin No Rashes. HEENT Atraumatic, EOMI, Mucous Membrane. moist/pink Neck Supple, +2 Carotid Pulse wo Bruit, no thyromegaly Lymphatic Cervical normal Cardiovascular RRR, Normal S1, Normal S2, No Murmurs Lungs Clear to Auscultation, Normal Air Movement, no increased work of breathing Abdomen Normal Bowel Sounds, Soft, No Masses, Slight tenderness to palpation of suprapubic area, no guarding and rebound tenderness Neurological Normal Speech, Strength at 5/5 X4 Ext, Sensation Intact, Cranial Nerves 3-12 NL, Normal passive range of motion of bilateral lower extremities. Extremities No Clubbing, No Cyanosis, No Edema, Tenderness and swelling of her right middle finger specifically at her MCP and PIP joints, ROM is intact. Vascular Pulses 2+ Symmetrical Intake & Output 12/12 1600 12/12 0800 12/12 0000 Intake Total 240 720 Output Total 900 900 Balance -660 -180 Intake, Oral 240 720 Number 0 0 Bowel Movements Output, Urine 900 900 Current Medications Sig/Cesar Start time Last Medication Dose Route Stop Time Status Admin Ceftriaxone Sodium 1,000 MG 0200 12/11 0200 AC 12/12 IV 0228 Cyclobenzaprine HCl 5 MG TID 12/10 0235 AC 12/12 PO 0917 Diphenhydramine HCl 1 CHANDA Q6 12/12 0849 AC 12/12 TOP 1058 Diphenhydramine HCl 25 MG Q6P PRN 12/10 2000 AC 12/12 PO 0228 Diphenhydramine HCl 50 MG ONCE PRN 12/10 1845 AC 12/10 PO 1923 Docusate Sodium 100 MG DAILY 12/11 1415 AC 12/12 PO 0917 Epinephrine 0.3 MG ONCE PRN 12/10 2000 AC IM Gabapentin 300 MG QPM 12/12 2200 UNVr PO Heparin Sodium 5,000 UNIT Q8 12/11 0600 AC 12/12 (Porcine) SC 0508 Hydromorphone HCl 0.5 MG Q4P PRN 12/10 0200 AC 12/12 IV 0916 Insulin Aspart 0 TIDAC 12/10 0800 AC 12/11 SC 1713 Insulin Detemir 10 UNITS ONCE ONE 12/11 2045 DC 12/11 SC 12/11 2046 2050 Insulin Detemir 35 UNITS BID 12/10 1000 AC 12/12 SC 0916 Levothyroxine Sodium 0.025 MG DAILY AC 12/10 0700 AC 12/12 PO 0506 Lisinopril 5 MG DAILY 12/12 1328 UNVr PO Oxycodone HCl 10 MG Q12 12/12 1000 DC 12/12 PO 0917 Oxycodone/ 1 TAB Q6 12/12 1200 AC 12/12 Acetaminophen PO 1215 Oxycodone/ 1 TAB Q6P PRN 12/10 0600 DC 12/11 Acetaminophen PO 2051 Patient Medication 1 ED .STK-MED ONE 12/11 1354 DC Teaching ED 12/11 1355 Polyethylene Glycol 17 GM DAILY 12/12 1000 AC 12/12 PO 0917 Prednisone 10 MG DAILY 12/10 1000 AC 12/12 PO 0917 Senna/Docusate Sodium 2 TAB DAILY 12/12 1330 UNVr PO Results Results: Laboratory Tests 12/12/16 0610: PT 10.5, INR 1.00, APTT 26 12/11/16 0620: Anion Gap 9, Estimated GFR > 60, BUN/Creatinine Ratio 18.8, CBC w Diff NO MAN DIFF REQ, RBC 4.23, MCV 92.0, MCH 29.8, RDW 14.6 H, MPV 8.8, Gran % 62.1, Lymphocytes % 28.6, Monocytes % 6.0, Eosinophils % 2.9, Basophils % 0.4, Absolute Granulocytes 7.4 H, Absolute Lymphocytes 3.4, Absolute Monocytes 0.7 H, Absolute Eosinophils 0.3, Absolute Basophils 0, PUBS MCHC 32.4 L 12/10/16 1245: Troponin I < 0.01 12/10/16 0555: Lactic Acid 1.9 12/10/16 0555: Anion Gap 11, Estimated GFR 55 L, BUN/Creatinine Ratio 19.0, Troponin I < 0.01, CBC w Diff NO MAN DIFF REQ, RBC 4.21, MCV 91.9, MCH 30.2, RDW 15.6 H, MPV 9.3, Gran % 75.0, Lymphocytes % 18.6 L, Monocytes % 4.4, Eosinophils % 1.8, Basophils % 0.2, Absolute Granulocytes 11.7 H, Absolute Lymphocytes 2.9, Absolute Monocytes 0.7 H, Absolute Eosinophils 0.3, Absolute Basophils 0, PUBS MCHC 32.9 L 12/10/16 0300: Troponin I Cancelled 12/10/16 0054: Lactic Acid Cancelled 12/09/16 2350: Urinalysis LIGHT H, Urine Color STRAW, Urine Clarity HAZY H, Urine pH 6.5, Ur Specific [place] 1.010, Urine Protein 30 H, Urine Ketones NEG, Urine Nitrite POS H, Urine Bilirubin NEG, Urine Urobilinogen 0.2, Ur Leukocyte Esterase MOD H, Ur Microscopic SEDIMENT EXAMINED, Urine RBC 5-10 H, Urine WBC 25-50 H, Urine Bacteria FEW H, Urine Mucus FEW, Urine Hemoglobin MOD H, Urine Glucose NEG 12/09/16 2106: Anion Gap 11, Estimated GFR 45 L, BUN/Creatinine Ratio 17.5, Glucose 154 H, Lactic Acid 2.8 H, Calcium 9.2, Total Bilirubin 0.3, AST 20, ALT 43, Alkaline Phosphatase 129 H, Troponin I 0.02, Total Protein 6.4, Albumin 3.2 L, Globulin 3.2, Albumin/Globulin Ratio 1.0 L, CBC w Diff MAN DIFF ORDERED, RBC 4.35, MCV 91.5, MCH 29.9, RDW 15.0 H, MPV 8.6, Gran % 87.3 H, Lymphocytes % 8.2 L, Monocytes % 4.0, Eosinophils % 0.5, Basophils % 0 L, Absolute Granulocytes 23.1 H, Segmented Neutrophils 85 H, Absolute Lymphocytes 2.2, Lymphocytes 9 L, Monocytes 5, Absolute Monocytes 1.0 H, Absolute Eosinophils 0.1, Absolute Basophils 0, Platelet Estimate ADEQUATE, Normal RBC Morphology N, PUBS MCHC 32.7 L Microbiology 12/10 1245 BLOOD: Blood Culture - RES 12/10 0555 BLOOD: Blood Culture - RES 12/09 2350 URINE ROUT: Urine Culture - COMP Assessment/Plan Assessment: This is a 66-year-old female with PMH hypertension, hyperlipidemia, hypothyroidism, rheumatoid arthritis on daily steroids and methotrexate, osteoporosis per patient 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 This is her hospital stay day #3. Patient had no acute events overnight. Plan: Syncope * No evidence of acute intracranial injury on Head CT * Continue Telemetry Monitoring for EKG changes (no events overnight, Sinus 45- 69, QRS: 0.08, OK: 0.16) * Follow up on Echo Complicated UTI * IV Ceftriaxone 1000mg Daily, Day 3/5 * Leukocytosis trending down (26.5 -> 15.6 -> 11.9) with an absolute granulocyte count of 7.4 down from 23.1 * Numerous non-obstructive renal calculi bilaterally with a double-J ureteral stent in place on the left on abdominal and pelvis CT. * No Hydronephrosis at this time * Check Blood Cultures, Urine Culture: No growth at this time * Consult Urology to update them regarding patient's most recent sepsis 2/2 complicated UTI Skin Rash * Patient develop skin rash following initial dose of Ceftriaxone but had no respiratory distress, rash has since resolved and has not reappeared on subsequent doses. IM epinephrine was ordered, prn for anaphylaxis). Rash has since returend on the left cheek erythematous papular, non-tender to palpation * Diphenhydramine Topical Q6 Acute Kidney Injury * BUN is down from 21, now 15 * Cr is down from 1.2, now 0.8 * Discontinue fluids * Electrolytes normal Low Back Pain: * CT abdomen/pelvis showed a NEW compression fracture at L2 * Repeat Lumbar MRI confirmed the fracture and showed no adjacent or new fractures and there are multilevel degenerative changes, most prominent on the left at L4-L5 where there is a far lateral disc protrusion impinging on the extraforaminal left L4 nerve root. * Start Gabapentin 300mg PO QPM for neuropathic pain * Interventional Radiology is consulted and agreed to perform a vertebral augmentation on Saturday12/14/16. * Continue with muscle relaxant: Cyclobenzaprine 5mg PO TID * Hydromorphone 0.5mg IV PRN Q4P for pain * Oxycodone/Acetaminophen 1 tab PO Standing dose Q6P Hypertension * BP is elevated (160/90 most recent vitals) * Start Lisinopril 5mg PO daily Hyperlipidemia * no issues at this time Hypothyroidism * Continue Levothyroxine 0.025mg PO Rheumatoid Arthritis * no issues at this time * Continue prednisone 10mg PO daily * Hold methotrexate due to potential nephrotoxicity, will restart once patient renal functions return to baseline * Folate supplementation Insulin Dependent Diabetes Mellitus * Insulin Detemir 35 units SC BID * Fingerstick Glucose check TIDAC/HS (before meals and at bedtime) * Patient fingerstick reading for the past 24 hours 122, 122, 109, 109, 143, 143 , 170 * Hold Metformin due to nephrotoxicity and patient has elevated levels of lactic acids GERD * No issues at this time Hx of Unprovoked Pulmonary Embolism * Stopped Abixapan 5mg PO BID because patient's unprovoked PE was 2.5 years ago and has been asymptomatic and compliant to medication since then. According to treatment guidelines, patient should only be on anticoagulation for 6-9months post PE so patient was informed and decided to stopped the medication. * Patient started on Heparin 5000 units 12/11/16 * PT: 10.5 INR: 1.00 APTT: 26 Code Status: * Full Code Diet: * Low Fat Diet
[2016-12-12 16:23] VITALS: BP 102/68
--- NOTE | 2016-12-12 16:29 | Discharge Summary ---
Visit Information Visit Dates Admission Date: 12/10/16 Discharge Date: Hospital Course Course Attending Physician: CORAL ASCENCIO MD Primary Care Physician: ROYCE DRAKE MD Consulting Request: Consulting Specialty: Radiology Consulting Physician: Dr. 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 Navas, recurrent urinary tract infections, GERD, insulin-dependant diabetes mellitus and tobacco dependance who presented to the [facility] after a syncopal episode. Syncope Most likely associated with the urinary tract infection/hypovolemia. Patient was started on 100 mL per hour on admission and continued for around 36 hours. She has maintained very good pressure and denies any lightheadedness or dizziness. During the course of the stay there was no any arrhythmic activity on telemetry patient has had episodes of bradycardia at night as low as 46 but remained symptomatic. Blood pressure has remained stable. Severe sepsis (resolved) Patient presented with low blood pressure systolics 90/51 and high lactic acid of 2.8. She received fluid resuscitation with good improvement in blood pressure and decrease of lactic acid to normal levels. This patient had leukocytosis and UA suggestive of infection. Complicated UTI Patient had a UA analysis suggestive of urinary tract infection. She is status post stent placement on November 27. She has had previous UTI episodes which were resistant to quinolones. Patient started on IV ceftriaxone 1000 mg daily. So far there has been no spike of fever. Urine culture is still negative will continue to follow for any growth and to tailor antibiotic according to sensitivity. We have placed a urology consult with Dr. Gallegos but so far she has not reviewed the patient. Continue to follow-up urologist recommendations. Given absence of culture growth and no spikes of fever with initial downtrending of white blood cell count. We will transition the patient to oral antibiotic to complete the course of total 10 days for complicated UTI. Acute Kidney Injury (resolved) BUN is up to 21 from 16 on . Cr is up from 0.8, on admission 1.2. Patient received initial fluid resuscitation with complete resolution of the acute kidney injury. Continue to avoid nephrotoxic medications at home. Low Back Pain: CT abdomen/pelvis showed a NEW compression fracture at L2, this might have resulted from the fall. Patient had a repeat lumbar MRI which showed the same fracture and no additional fractures. Interventional radiologist performed vertebral augmentation December [address] Hernandez. Plan improvement of pain control........ Hypertension Patient presented with mild hypotension that responded well to fluid resuscitation. BP improved and remained stable. Patient was started on home dose of lisinopril 5 mg daily, the medication should be discharged to continue with at home. Hyperlipidemia Patient has been kept on low fat diet and restarted on her home dose of statin. Hypothyroidism She has history of hypothyroidism. Continued on Levothyroxine 0.025mg PO which is her home dose. Rheumatoid Arthritis Patient has no complaints of joint pains. Her rheumatoid arthritis has remained stable. We will Continue with prednisone 10mg PO daily per home dose. Methotrexate which is part of her home medication was held on admission because of derranged renal function. With improvement in renal function we will discharge the patient on her home dose of Methotrexate. We'll continue also with folate supplementations. Insulin Dependent Diabetes Mellitus Patient has history of diabetes mellitus has been kept on Insulin Detemir 35 units SC BID. She is also on Fingerstick Glucose check TIDAC/HS (before meals and at bedtime). Per hospital protocol oral antidiabetic metformin was hold. Patient fingerstick reading for the past during the course of the stay remained stable. Hx of Pulmonary Embolism Patient has history of pulmonary embolism that was unprovoked and occured about 2-1/2 years ago while she was in [place]. She was started on Coumadin and later changed to Apixaban, she does not follow up with any corporate legal intern and per her knowledge she has not developed any other clots after that initial episode. Per protocol this patient was supposed to be on anticoagulation for 6-9 months and we discussed with her that she has not to be on Apixaban. We have stopped the medication and will discharge the patient home without Apixaban. Complications: None Allergies: Coded Allergies: Cephalosporins (FACIAL RASH 01/29/16) Penicillins (VOMITING 11/18/16) Significant Procedures: Vertebral augmentation Pertinent Lab Results: Laboratory Tests 12/12 12/11 12/10 0610 0620 1245 Chemistry Sodium (137 - 145 mmol/L) 140 Potassium (3.5 - 5.1 mmol/L) 4.1 Chloride (98 - 107 mmol/L) 110 H Carbon Dioxide (22 - 30 mmol/L) 21 L Anion Gap (5 - 16) 9 BUN (7 - 17 mg/dL) 15 Creatinine (0.5 - 1.0 mg/dL) 0.8 Estimated GFR (>60 ml/min) > 60 BUN/Creatinine Ratio (7 - 25 %) 18.8 Troponin I (< 0.11 ng/ml) < 0.01 Coagulation PT (9.4 - 12.5 SEC) 10.5 INR (0.90 - 1.19) 1.00 APTT (25 - 37 SEC) 26 Hematology CBC w Diff NO MAN DIFF REQ WBC (4.8 - 10.8 /CUMM) 11.9 H RBC (4.20 - 5.40 /CUMM) 4.23 Hgb (12.0 - 16.0 G/DL) 12.6 Hct (37 - 47 %) 38.9 MCV (81.0 - 99.0 FL) 92.0 MCH (27.0 - 31.0 PG) 29.8 RDW (11.5 - 14.5 %) 14.6 H Plt Count (130 - 400 /CUMM) 330 MPV (7.4 - 10.4 FL) 8.8 Gran % (42.2 - 75.2 %) 62.1 Lymphocytes % (20.5 - 51.1 %) 28.6 Monocytes % (1.7 - 9.3 %) 6.0 Eosinophils % (0 - 5 %) 2.9 Basophils % (0.0 - 2.0 %) 0.4 Absolute Granulocytes (1.4 - 6.5 /CUMM) 7.4 H Absolute Lymphocytes (1.2 - 3.4 /CUMM) 3.4 Absolute Monocytes (0.10 - 0.60 /CUMM) 0.7 H Absolute Eosinophils (0.0 - 0.7 /CUMM) 0.3 Absolute Basophils (0.0 - 0.2 /CUMM) 0 PUBS MCHC (33.0 - 37.0 G/DL) 32.4 L Disposition Summary Disposition Principal Diagnosis: Syncope Acute kidney injury Complicated urinary tract infection Severe sepsis Compression fracture of L2 Low back pain Additional Diagnosis: Diabetes mellitus Hypothyroidism Osteoporosis Hypertension Nicotine dependence Discharge Disposition: SNF Discharge Instructions General Discharge Information Code Status: Full Code Patient's Diet: Diabetic diet Patient's Activity: As tolerated Follow-Up Instructions/Appts: Please call and make a follow-up with her primary care physician within one week after discharge. Please call and make a follow-up with your urologist Dr. Navas within 1 week after discharge Medications at Discharge Discharge Medications: Continue taking these medications: Folic Acid (Folic Acid) 1 MG TABLET 1 Tablet ORAL DAILY Comments: NOT GIVEN IN THE HOSPITAL Insulin Detemir (Levemir) 100 UNIT/ML VIAL 35 Units Inject into fatty tissue TWICE DAILY Qty = 1 Comments: Last Taken: 12/13/16 Time: 11 PM Metformin HCl (Glucophage) 1,000 MG TABLET 1 Tablet ORAL TWICE DAILY Comments: NOT GIVEN IN THE HOSPITAL Methotrexate (Methotrexate) 2.5 MG TABLET 6 Tablet ORAL EVERY SATURDAY Qty = 30 Comments: NOT GIVEN IN THE HOSPITAL Lisinopril (Lisinopril) 5 MG TABLET 1 Tablet ORAL DAILY Qty = 30 Comments: Last Taken: 12/14/16 Time: 945 AM Levothyroxine Sodium (Levothyroxine Sodium) 25 MCG TABLET 1 Tablet ORAL DAILY Qty = 30 Comments: Last Taken: 12/13/16 Time: 5 AM Prednisone (Prednisone) 10 MG TABLET 1 Tablet ORAL DAILY Comments: Last Taken: 12/17/16 Time: 945 AM Start taking the following new medications: Sulfamethoxazole/Trimethoprim (Sulfamethoxazole-Tmp Ds Tablet) 800 MG-160 MG TABLET 1 Tablet ORAL TWICE DAILY Qty = 10 No Refills Oxycodone HCl/Acetaminophen (Percocet 5-325 MG Tablet) 5 MG-325 MG TABLET 1 Tablet ORAL EVERY SIX HOURS Qty = 30 No Refills Gabapentin (Gabapentin) 300 MG CAPSULE 300 Milligram ORAL Every night Qty = 30 No Refills Docusate Sodium (Docusate Sodium) 100 MG CAPSULE 100 Milligram ORAL DAILY Qty = 30 No Refills Sennosides/Docusate Sodium (Senna Plus Tablet) 8.6 MG-50 MG TABLET 2 Tablet ORAL DAILY Qty = 60 No Refills Copies To: CORIN THOMPSON,RICHARD; NOELLE THOMPSON,ROYCE; PHILIP THOMPSON,MOLLY Attending MD Review Statement Documenting Attending: SILVA THOMPSON,CORAL
[2016-12-12 23:44] VITALS: BP 110/70
--- NOTE | 2016-12-13 07:09 | PN- Housestaff ---
JARON WOLF 12/13/16 0709: Subjective Follow-up For: Urinary tract infection Compression fracture of L2 Low back pain Acute kidney injury (resolved) Complaints: continues to have back pain Tele-Events Since Last Visit: Sinus wheezing 56-88 bpm. The lowest heart rate is 56 Subjective: Seen and examined the patient lying comfortable on the bed has no acute distress. It is elevated and awake oriented to time place and person. She has not had a bowel movement yet Review of Systems Constitutional: Denies: chills, fever. Cardiovascular: Denies: chest pain, palpitations. Respiratory: Denies: cough, short of breath. Gastrointestinal: Denies: abdominal pain, nausea, vomiting. Genitourinary: Denies: no symptoms. Musculoskeletal: Reports: see HPI. Denies: no symptoms, back pain. Skin: Denies: no symptoms. Comments: All other systems reviewed and are negative Objective Last 24 Hrs of Vital Signs/I&O Vital Signs Date Time Temp Pulse Resp B/P Pulse O2 O2 Flow FiO2 Ox Delivery Rate 12/12 2344 97.6 68 20 110/70 97 Room Air 12/12 1623 97.8 72 18 102/68 96 Room Air 12/12 1431 76 140/80 12/12 0800 97.9 76 20 160/90 96 Room Air Intake & Output 12/13 0800 12/13 0000 12/12 1600 Intake Total 500 400 480 Output Total 600 1200 600 Balance -100 -800 -120 Intake, Oral 500 400 480 Output, Urine 600 1200 600 Physical Exam General Appearance: Alert, Oriented X3, Cooperative, No Acute Distress Skin: No Breakdown HEENT: Atraumatic, Mucous Membr. moist/pink Neck: Supple, No JVD Cardiovascular: Regular Rate, Normal S1, Normal S2, No Murmurs Lungs: Clear to Auscultation, Normal Air Movement Abdomen: Normal Bowel Sounds, Soft, No Tenderness Neurological: Normal Speech, Normal Tone Extremities: No Clubbing, No Cyanosis, No Edema Current Medications: Current Medications Sig/Cesar Start time Last Medication Dose Route Stop Time Status Admin Ceftriaxone Sodium 1,000 MG 0200 12/11 0200 12/13 IV 0141 Cyclobenzaprine HCl 5 MG TID 12/10 0235 12/12 PO 2131 Diphenhydramine HCl 1 CHANDA Q6 12/12 0849 12/13 TOP 0502 Diphenhydramine HCl 25 MG Q6P PRN 12/11 1999 AC 12/12 PO 0228 Diphenhydramine HCl 50 MG ONCE PRN 12/10 1845 AC 12/10 PO 1923 Docusate Sodium 100 MG DAILY 12/11 1415 AC 12/12 PO 0917 Epinephrine 0.3 MG ONCE PRN 12/11 1999 AC IM Gabapentin 300 MG QPM 12/12 2200 AC 12/12 PO 2128 Heparin Sodium 5,000 UNIT Q8 12/11 0600 AC 12/13 (Porcine) SC 0502 Hydromorphone HCl 0.5 MG Q4P PRN 12/10 0200 AC 12/12 IV 2009 Insulin Aspart 0 TIDAC 12/10 0800 AC 12/11 SC 1713 Insulin Detemir 35 UNITS BID 12/10 1000 AC 12/12 SC 2130 Levothyroxine Sodium 0.025 MG DAILY AC 12/10 0700 AC 12/13 PO 0503 Lisinopril 5 MG DAILY 12/12 1328 AC 12/12 PO 1431 Oxycodone HCl 10 MG Q12 12/12 1000 DC 12/12 PO 0917 Oxycodone/ 1 TAB Q6 12/12 1200 AC 12/13 Acetaminophen PO 0503 Oxycodone/ 1 TAB Q6P PRN 12/10 0600 DC 12/11 Acetaminophen PO 2051 Polyethylene Glycol 17 GM DAILY 12/12 1000 AC 12/12 PO 0917 Prednisone 10 MG DAILY 12/10 1000 AC 12/12 PO 0917 Senna/Docusate Sodium 2 TAB DAILY 12/12 1330 AC 12/12 PO 1431 Assessment/Plan Assessment: This is a 66-year-old female with PMH hypertension, hyperlipidemia, hypothyroidism, rheumatoid arthritis on daily steroids and methotrexate, osteoporosis per patient following DEXA scan with 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 Syncope Most likely associated with the urinary tract infection/hypovolemia. Patient was started on 100 mL per hour on admission and continued for around 36 hours. She has maintained very good pressure and denies any lightheadedness or dizziness. So far there has been no any arrhythmic activity on telemetry patient has had episodes of bradycardia at night as low as 46. Blood pressure has remained stable. Severe sepsis (resolved) Patient presented with low blood pressure systolics 90/51 and high lactic acid of 2.8. She received fluid resuscitation with good improvement in blood pressure and decrease of lactic acid to normal levels. This patient had leukocytosis and UA suggestive of infection. Complicated UTI Patient had a UA analysis suggestive of urinary tract infection. She is status post stent placement on November 27. She has had previous UTI episodes which were resistant to quinolones. Patient started on IV ceftriaxone 1000 mg daily. So far there has been no spike of fever. Urine culture is still negative will continue to follow for any growth and to tailor antibiotic according to sensitivity. We have placed a urology consult with Dr. Gallegos but so far she has not reviewed the patient. Continue to follow-up urologist recommendations. Given absence of culture growth and no spikes of fever with initial downtrending of white blood cell c and both attempted for 10 days. Ounts we will transition the patient to oral antibiotic to complete the course of total 10 to 14 days. Acute Kidney Injury (resolved) BUN is up to 21 from 16 on . Cr is up from 0.8, on admission 1.2. Patient received initial fluid resuscitation with complete resolution of the acute kidney injury. Continue to avoid nephrotoxic medications Low Back Pain: CT abdomen/pelvis showed a NEW compression fracture at L2, this might have resulted from the fall. Patient had a repeat lumbar MRI which showed the same fracture and no additional fractures. Interventional radiologist is on board and this patient will have vertebral augmentation December [address] Hernandez. Will continue with pain medication and muscle relaxant Flexeril, Started on Gabapentin 300mg QPM. Hypertension Patient presented with mild hypotension that responded well to fluid resuscitation. Currently BP is stable. Patient has been started on home dose of lisinopril 5 mg daily. Hyperlipidemia Patient has been kept on low fat diet and restarted on her home dose of statin. Hypothyroidism She has history of hypothyroidism. Continued on Levothyroxine 0.025mg PO which is her home dose. Rheumatoid Arthritis Patient has no complaints of joint pains. Her method arthritis has remained stable. We will Continue prednisone 10mg PO daily per home dose. Methotrexate she is part of her home medication were held on admission because of differential renal function. With improvement in renal function to normal level as we will restart methotrexate which she takes once a week on Mondays. We'll continue also with folate supplementations. Insulin Dependent Diabetes Mellitus Patient has history of diabetes mellitus has been kept on Insulin Detemir 35 units SC BID. She is also on Fingerstick Glucose check TIDAC/HS (before meals and at bedtime). Hospital protocol oral antidiabetic metformin is on hold. Patient fingerstick reading for the past 24 has remained stable Hx of Pulmonary Embolism Patient has history of pulmonary embolism that was unprovoked and occured about 2-1/2 years ago while she was in [place]. He was started on Coumadin and later changed to Apixaban, she does not follow up with any staff development coordinator rn and per her knowledge she has not developed any other clots after that initial episode. Per protocol this patient was supposed to be on anticoagulation for 6-9 months and we discussed with her that she has not to be on Apixaban. We have stopped the medication and will discharge the patient home without Apixaban. Problem List: 1. Urinary tract infection 2. Sepsis 3. Rheumatoid arteritis 4. Nephrolithiasis 5. Diabetes mellitus 6. Hypothyroidism 7. Lumbar compression fracture 8. DALIA (acute kidney injury) 9. History of pulmonary embolism Pain Ratin Pain Location: Lower back Pain Goal: Pain 4 or less Pain Plan: AlL 3 pain regimens for mild, moderate and severe Gabapentin for neuro pain Tomorrow's Labs & Rationales: None required DVT/Prophylaxis: mechanical, pharmacological CORAL ASCENCIO 12/13/16 0858: Attending MD Review Statement Attending Statement Attending MD Statement: examined this patient, discuss w/resident/PA/NETSUITE DEVELOPER, agreed w/resident/PA/NETSUITE DEVELOPER, discussed with family, reviewed EMR data (avail), discussed with nursing, discussed with case mgmt, reviewed images Attending Assessment/Plan: Problem List: 1) Syncope 2/2 UTI/dehydration 2) Sepsis of complicated UTI 3) Compression fracture at the level of L2 4) DALIA improving 5) Rheumatoid Arthritis on MTX and daily Prednisone 6) Hypothyroidism 7) DMT2 on Levemir and Metformin 8) H/O PE, was on Eliquis 9) H/O Osteoporosis per patient, not currently under treatment Plan: * cont Telemetry for evaluation of syncope/bradycardia HR low 50(during sleep) * Change ceftriaxone to PO abx, urine cultures and blood cultures negative so far. consult urology has stent placed 2 weeks ago. * Pain managment of fracture with Percocet and Dilaudid, IR consuted for vertebral augmentation. Constipation added colace, miralax, maybe add enema if no response. * Fluids for DALIA, resume home Lisinopril and MTX * Continue Daily Prednisone for now. Patient will need further workup with respect to management of osteoporosis including bisphosphonates as o/p. d/wed patient. * plan for kypohplasty on saturday. * Fingersticks, Levemir and Novolog sliding scale * stopped eliquis , d/wed patient, in verbal agreement. * DVT PPx * Pain Management: Percocet and Dilaudid per pain scale * Code Status: Full Code
--- NOTE | 2016-12-13 07:24 | PN- Student ---
Subjective Subjective: Patient is seen and examined at bedside. Patient is doing well. Patient is still experiencing pain in regards to her back (04/01). Patient reports she could not tolerate Physical therapy but will try again today. Patient denies fever/chills/ headache/vision changes/chest pain/palpitations/shortness of breath/abdominal pain/dysuruia and hematuria. Patient still has not had a bowel movement but does not feel constipated at this time. No issues overnight. PMHx: RA dx 7yrs ago on Prednisone, Methotrexate, Folic Acid Supplementation, Tramadol PRN for pain PE dx 5yrs ago on Abixaban Hypothyoidism dx 2yrs ago on Levothyroxine IDDM dx 3yrs ago on Insulin and Metformin HTN on Lisinopril HLD - no meds listed GERD - no meds listed Recurrent UTI - Left ureteral stent inserted FHx: No hx of syncope, seizures, neruological disorders. Both mom and dad had a CO in their 70s. SHx: Patient is not and currently lives with her 40yo daughther and the daughter's girlfriend. Active smoker: 3 cigarettes/day, No ETOH, No Illiciti Drug Use Objective Objective: General Appearance AAO X3, Cooperative, Moderate Distress with movement Skin No Rashes. HEENT Atraumatic, EOMI, Mucous Membrane. moist/pink Neck Supple, +2 Carotid Pulse wo Bruit, no thyromegaly Lymphatic Cervical normal Cardiovascular RRR, Normal S1, Normal S2, No Murmurs Lungs Clear to Auscultation, Normal Air Movement, no increased work of breathing Abdomen Normal Bowel Sounds, Soft, No Masses, Slight tenderness to palpation of suprapubic area, no guarding and rebound tenderness Neurological Normal Speech, Strength at 5/5 X4 Ext, Sensation Intact, Cranial Nerves 3-12 NL, Normal passive range of motion of bilateral lower extremities. Extremities No Clubbing, No Cyanosis, No Edema, Tenderness and swelling of her right middle finger specifically at her MCP and PIP joints, ROM is intact. Vascular Pulses 2+ Symmetrical Intake & Output 12/13 0800 12/13 0000 12/12 1600 Intake Total 500 400 480 Output Total 600 1200 600 Balance -100 -800 -120 Intake, Oral 500 400 480 Output, Urine 600 1200 600 Current Medications Sig/Cesar Start time Last Medication Dose Route Stop Time Status Admin Ceftriaxone Sodium 1,000 MG 0200 12/11 0200 AC 12/13 IV 0141 Cyclobenzaprine HCl 5 MG TID 12/10 0235 AC 12/12 PO 2131 Diphenhydramine HCl 1 CHANDA Q6 12/12 0849 AC 12/13 TOP 0502 Diphenhydramine HCl 25 MG Q6P PRN 12/10 2000 AC 12/12 PO 0228 Diphenhydramine HCl 50 MG ONCE PRN 12/10 1845 AC 12/10 PO 1923 Docusate Sodium 100 MG DAILY 12/11 1415 AC 12/12 PO 0917 Epinephrine 0.3 MG ONCE PRN 12/10 2000 AC IM Gabapentin 300 MG QPM 12/12 2200 AC 12/12 PO 2128 Heparin Sodium 5,000 UNIT Q8 12/11 0600 AC 12/13 (Porcine) SC 0502 Hydromorphone HCl 0.5 MG Q4P PRN 12/10 0200 AC 12/12 IV 2009 Insulin Aspart 0 TIDAC 12/10 0800 AC 12/11 SC 1713 Insulin Detemir 35 UNITS BID 12/10 1000 AC 12/12 SC 2130 Levothyroxine Sodium 0.025 MG DAILY AC 12/10 0700 AC 12/13 PO 0503 Lisinopril 5 MG DAILY 12/12 1328 AC 12/12 PO 1431 Oxycodone HCl 10 MG Q12 12/12 1000 DC 12/12 PO 0917 Oxycodone/ 1 TAB Q6 12/12 1200 AC 12/13 Acetaminophen PO 0503 Oxycodone/ 1 TAB Q6P PRN 12/10 0600 DC 12/11 Acetaminophen PO 2051 Polyethylene Glycol 17 GM DAILY 12/12 1000 AC 12/12 PO 0917 Prednisone 10 MG DAILY 12/10 1000 AC 12/12 PO 0917 Senna/Docusate Sodium 2 TAB DAILY 12/12 1330 AC 12/12 PO 1431 Results Results: Laboratory Tests 12/12/16 0610: PT 10.5, INR 1.00, APTT 26 12/11/16 0620: Anion Gap 9, Estimated GFR > 60, BUN/Creatinine Ratio 18.8, CBC w Diff NO MAN DIFF REQ, RBC 4.23, MCV 92.0, MCH 29.8, RDW 14.6 H, MPV 8.8, Gran % 62.1, Lymphocytes % 28.6, Monocytes % 6.0, Eosinophils % 2.9, Basophils % 0.4, Absolute Granulocytes 7.4 H, Absolute Lymphocytes 3.4, Absolute Monocytes 0.7 H, Absolute Eosinophils 0.3, Absolute Basophils 0, PUBS MCHC 32.4 L 12/10/16 1245: Troponin I < 0.01 Microbiology 12/10 1245 BLOOD: Blood Culture - RES Assessment/Plan Assessment: This is a 66-year-old female with PMH hypertension, hyperlipidemia, hypothyroidism, rheumatoid arthritis on daily steroids and methotrexate, osteoporosis per patient following DEXA scan 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 This is her hospital stay day #5. Patient had no acute events overnight. Patient is scheduled to have her vertebral augmentation tomorrow. Plan: Syncope * No evidence of acute intracranial injury on Head CT * Continue Telemetry Monitoring for EKG changes (no events overnight, Sinus 45- 69, QRS: 0.08, VT: 0.16) Complicated UTI * IV Ceftriaxone 1000mg Daily: will consider transitioning patient to PO antibiotics 10-14 days dose of * Leukocytosis trending down (26.5 -> 15.6 -> 11.9) with an absolute granulocyte count of 7.4 down from 23.1 * Numerous non-obstructive renal calculi bilaterally with a double-J ureteral stent in place on the left on abdominal and pelvis CT. * No Hydronephrosis at this time * Check Blood Cultures, Urine Culture: No growth at this time * Consult Urology to update them regarding patient's most recent sepsis 2/2 complicated UTI Skin Rash * Patient develop skin rash following initial dose of Ceftriaxone but had no respiratory distress, rash has since resolved and has not reappeared on subsequent doses. IM epinephrine was ordered, prn for anaphylaxis). Rash has since returend on the left cheek erythematous papular, non-tender to palpation. * Diphenhydramine Topical Q6 * Rash improving Acute Kidney Injury (resolved) * BUN is down from 21, now 15 * Cr is down from 1.2, now 0.8 * Discontinue fluids * Electrolytes normal Low Back Pain: * CT abdomen/pelvis showed a NEW compression fracture at L2 * Repeat Lumbar MRI confirmed the fracture and showed no adjacent or new fractures and there are multilevel degenerative changes, most prominent on the left at L4-L5 where there is a far lateral disc protrusion impinging on the extraforaminal left L4 nerve root. * Start Gabapentin 300mg PO QPM for neuropathic pain * Vertebral augmentation on Saturday12/14/16. * Continue with muscle relaxant: Cyclobenzaprine 5mg PO TID * Hydromorphone 0.5mg IV PRN Q4P for pain (patient only required one dose yesterday) * Oxycodone/Acetaminophen 1 tab PO Standing dose Q6P Hypertension * BP is elevated (160/90 most recent vitals) * Start Lisinopril 5mg PO daily Hyperlipidemia * no issues at this time Hypothyroidism * Continue Levothyroxine 0.025mg PO * no issues at this time Rheumatoid Arthritis * no issues at this time * Continue prednisone 10mg PO daily * With improvement in renal function to normal level as we will restart methotrexate which she takes once a week on Mondays * Folate supplementation Insulin Dependent Diabetes Mellitus * Insulin Detemir 35 units SC BID * Fingerstick Glucose check TIDAC/HS (before meals and at bedtime): Patient fingerstick reading for the past 24 has remained stable * Hold Metformin due to nephrotoxicity and patient has elevated levels of lactic acids GERD * No issues at this time Hx of Unprovoked Pulmonary Embolism * Stopped Abixapan 5mg PO BID because patient's unprovoked PE was 2.5 years ago and has been asymptomatic and compliant to medication since then. According to treatment guidelines, patient should only be on anticoagulation for 6-9months post PE so patient was informed and decided to stopped the medication. * Patient started on Heparin 5000 units 12/11/16 * Interventional Radiology recommends that IV heparin would have to be held approximately 4 hours prior to vertebral augmentation procedure on Saturday. Code Status: * Full Code Diet: * Low Fat Diet
--- NOTE | 2016-12-13 07:38 | Patient Discharge Instructions ---
Discharge Instructions General Discharge Information You were seen/treated for: Urinary tract infection Syncopal episode Acute kidney injury Compression fracture of the vertebral Special Instructions: Please call and make a follow-up with your primary care physician within one week after discharge Please call and make a follow-up with her urologist Dr. Navas within 1 week after discharge Acute Coronary Syndrome Inclusion Criteria At DC or during hospital stay patient has or had the following: ACS DIAGNOSIS No Discharge Core Measures Meds if any: Prescribed or Continued at Discharge Meds if any: NOT Prescribed or Continued at Discharge Congestive Heart Failure Inclusion Criteria At DC or during hospital stay patient has or had the following: CHF DIAGNOSIS No Discharge Core Measures Meds if any: Prescribed or Continued at Discharge Meds if any: NOT Prescribed or Continued at Discharge Cerebrovascular accident Inclusion Criteria At DC or during hospital stay patient has or had the following: CVA/TIA Diagnosis No Discharge Core Measures Meds if any: Prescribed or Continued at Discharge Meds if any: NOT Prescribed or Continued at Discharge Venous thromboembolism Inclusion Criteria VTE Diagnosis No VTE Type NONE VTE Confirmed by (Test) NONE Discharge Core Measures - Per Current guidelines, there needs to be overlap - treatment for the first 5 days of Warfarin therapy. - If discharged on Warfarin prior to 5 days of - overlap therapy, the patient will need to be - assessed for post discharge needs including - *Post discharge parental anticoagulation - *Warfarin and/or parental anticoagulation education - *Follow up date to check INR post discharge At least 5 days overlap therapy as Inpatient No Meds if any: Prescribed or Continued at Discharge Note: Overlap Therapy is Warfarin and Anticoagulant Meds if any: NOT Prescribed or Continued at Discharge
[2016-12-13 08:00] VITALS: BP 112/68
[2016-12-13 16:00] VITALS: BP 108/72
[2016-12-14 02:15] VITALS: BP 117/66
--- NOTE | 2016-12-14 07:04 | PN- Housestaff ---
JARON WOLF 12/14/16 0704: Subjective Follow-up For: Urinary tract infection Compression fracture of L2 Low back pain Acute kidney injury [resolved] Complaints: no complaints Tele-Events Since Last Visit: Normal sinus rhythm Subjective: Reviewed the patient lying comfortably on the bed she reports to have slept much better. She feels like the pain is more controlled. She had a bowel movement yesterday and is waiting for vertebral augmentation procedure this morning. Review of Systems Constitutional: Denies: chills, fever. Cardiovascular: Denies: chest pain, palpitations. Respiratory: Denies: cough, short of breath. Gastrointestinal: Denies: abdominal pain, nausea, vomiting. Genitourinary: Denies: no symptoms. Musculoskeletal: Reports: back pain. Skin: Denies: no symptoms. Objective Last 24 Hrs of Vital Signs/I&O Vital Signs Date Time Temp Pulse Resp B/P Pulse O2 O2 Flow FiO2 Ox Delivery Rate 12/14 0820 97.5 72 20 110/60 95 Room Air 12/14 0215 97.5 84 18 117/66 94 Room Air 12/13 1600 97.9 82 20 108/72 93 Room Air 12/13 1046 112/68 Intake & Output 12/14 1600 12/14 0800 12/14 0000 Intake Total 400 Output Total 320 825 Balance -320 -425 Intake, Oral 400 Number 1 0 Bowel Movements Output, Urine 320 825 Physical Exam General Appearance: Alert, Oriented X3, Cooperative, No Acute Distress Skin: No Breakdown HEENT: Atraumatic, Mucous Membr. moist/pink Neck: Supple, No JVD Cardiovascular: Regular Rate, Normal S1, Normal S2 Lungs: Clear to Auscultation, Normal Air Movement Abdomen: Normal Bowel Sounds, Soft Neurological: Normal Gait, Normal Speech, Normal Tone Extremities: No Clubbing, No Cyanosis, No Edema Current Medications: Current Medications Sig/Cesar Start time Last Medication Dose Route Stop Time Status Admin Bisacodyl 10 MG ONCE ONE 12/13 1245 DC 12/13 ME 12/13 1246 1305 Ceftriaxone Sodium 1,000 MG 0200 12/11 0200 DC 12/13 IV 0141 Cyclobenzaprine HCl 5 MG TID 12/10 0235 AC 12/13 PO 2302 Diphenhydramine HCl 1 CHANDA Q6 12/12 0849 AC 12/14 TOP 0530 Diphenhydramine HCl 25 MG Q6P PRN 12/10 2000 AC 12/12 PO 0228 Docusate Sodium 100 MG DAILY 12/14 1000 AC PO Docusate Sodium 100 MG DAILY 12/11 1415 DC 12/13 PO 1046 Gabapentin 300 MG QPM 12/13 2200 AC 12/13 PO 2300 Gabapentin 300 MG QPM 12/12 2200 DC 12/12 PO 2128 Heparin Sodium 5,000 UNIT Q8 12/13 2200 AC 12/13 (Porcine) SC 2303 Heparin Sodium 5,000 UNIT Q8 12/11 0600 DC 12/13 (Porcine) SC 1301 Hydromorphone HCl 0.5 MG Q4P PRN 12/10 0200 AC 12/13 IV 2311 Insulin Aspart 0 TIDAC 12/10 0800 AC 12/13 SC 1924 Insulin Detemir 35 UNITS BID 12/10 1000 AC 12/13 SC 2302 Lactobacillus 1 CAP DAILY 12/14 1000 AC Acidophilus PO Lactobacillus 1 CAP DAILY 12/13 1000 DC 12/13 Acidophilus PO 1301 Levothyroxine Sodium 0.025 MG DAILY AC 12/14 0700 AC 12/14 PO 0530 Levothyroxine Sodium 0.025 MG DAILY AC 12/10 0700 DC 12/13 PO 0503 Lisinopril 5 MG DAILY 12/14 1000 AC PO Lisinopril 5 MG DAILY 12/12 1328 DC 12/13 PO 1046 Oxycodone/ 1 TAB Q6 12/12 1200 AC 12/14 Acetaminophen PO 0532 Patient Medication 1 ED .STK-MED ONE 12/13 1127 [place] Teaching ED 12/13 1128 Polyethylene Glycol 17 GM DAILY 12/14 1000 AC PO Polyethylene Glycol 17 GM DAILY 12/12 1000 DC 12/13 PO 1045 Prednisone 10 MG DAILY 12/14 1000 AC PO Prednisone 10 MG DAILY 12/10 1000 DC 12/13 PO 1046 Senna/Docusate Sodium 2 TAB DAILY 12/14 1000 AC PO Senna/Docusate Sodium 2 TAB DAILY 12/12 1330 DC 12/13 PO 1045 Trimethoprim/ 1 TAB BID 12/13 2200 AC 12/13 Sulfamethoxazole PO 2301 Trimethoprim/ 1 TAB BID 12/13 1000 DC 12/13 Sulfamethoxazole PO 1301 Assessment/Plan Assessment: This is a 66-year-old female with PMH hypertension, hyperlipidemia, hypothyroidism, rheumatoid arthritis on daily steroids and methotrexate, osteoporosis per patient following 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 Syncope Most likely associated with the urinary tract infection/hypovolemia. Patient was started on 100 mL per hour on admission and continued for around 36 hours. She has maintained very good pressure and denies any lightheadedness or dizziness. So far there has been no any arrhythmic activity on telemetry patient has had episodes of bradycardia for previous 2 days as low as 46, today no bradycardia. Blood pressure has remained stable. Severe sepsis (resolved) Patient presented with low blood pressure systolics 90/51 and high lactic acid of 2.8. She received fluid resuscitation with good improvement in blood pressure and decrease of lactic acid to normal levels. This patient had leukocytosis and UA suggestive of infection. Complicated UTI Patient had a UA analysis suggestive of urinary tract infection. She is status post stent placement on November 27. She has had previous UTI episodes which were resistant to quinolones. Patient started on IV ceftriaxone 1000 mg daily. So far there has been no spike of fever. Urine culture is still negative will continue to follow for any growth and to tailor antibiotic according to sensitivity. We have placed a urology consult with Dr. Gallegos but so far she has not reviewed the patient. Continue to follow-up urologist recommendations. Given absence of culture growth and no spikes of fever with initial downtrending of white blood cell count we will transition the patient to oral antibiotic to complete the course of total 10 days. Acute Kidney Injury (resolved) BUN is up to 21 from 16 on . Cr is up from 0.8, on admission 1.2. Patient received initial fluid resuscitation with complete resolution of the acute kidney injury. Continue to avoid nephrotoxic medications Low Back Pain: CT abdomen/pelvis showed a NEW compression fracture at L2, this might have resulted from the fall. Patient had a repeat lumbar MRI which showed the same fracture and no additional fractures. Interventional radiologist is on board and this patient will have vertebral augmentation December [address] Hernandez. Will continue with pain medication and muscle relaxant Flexeril, Started on Gabapentin 300mg QPM. Will consult with interventional radiologist with the possibility of discharging the patient today. Hypertension Patient presented with mild hypotension that responded well to fluid resuscitation. Currently BP is stable. Patient has been started on home dose of lisinopril 5 mg daily. Hyperlipidemia Patient has been kept on low fat diet and restarted on her home dose of statin. Hypothyroidism She has history of hypothyroidism. Continued on Levothyroxine 0.025mg PO which is her home dose. Rheumatoid Arthritis Patient has no complaints of joint pains. Her method arthritis has remained stable. We will Continue prednisone 10mg PO daily per home dose. Methotrexate she is part of her home medication were held on admission because of differential renal function. With improvement in renal function to normal level as we will restart methotrexate which she takes once a week on Mondays. We'll continue also with folate supplementations. Insulin Dependent Diabetes Mellitus Patient has history of diabetes mellitus has been kept on Insulin Detemir 35 units SC BID. She is also on Fingerstick Glucose check TIDAC/HS (before meals and at bedtime). Hospital protocol oral antidiabetic metformin is on hold. Patient fingerstick reading for the past 24 has remained stable Hx of Pulmonary Embolism Patient has history of pulmonary embolism that was unprovoked and occured about 2-1/2 years ago while she was in [place]. 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 Per protocol this patient was supposed to be on anticoagulation for 6-9 months and we discussed with her that she has not to be on Apixaban. We have stopped the medication and will discharge the patient home without Apixaban. Problem List: 1. DALIA (acute kidney injury) 2. Lumbar compression fracture 3. Syncope 4. Nicotine dependence 5. History of pulmonary embolism 6. Hypothyroidism 7. Diabetes mellitus 8. Nephrolithiasis 9. Sepsis Pain Ratin Pain Location: Lower Back Pain Goal: Pain 4 or less Pain Plan: All 3 levels of pain medication plus gabapentin Tomorrow's Labs & Rationales: None DVT/Prophylaxis: mechanical, pharmacological Consulting Request: Consulting Specialty: Radiology Consulting Physician: Dr. Hernandez Reason for Consult: compression fracture of L2 vertebral augmentation Discharge Plan Discharge Disposition: STR/NH Stable for Discharge? Yes Anticipated Discharge (Day): today If Discharged Today/In 24 Hrs: W-10/discharge paper done, DC summary done, CMR done CORAL ASCENCIO 12/14/16 1031: Attending MD Review Statement Attending Statement Attending MD Statement: examined this patient, discuss w/resident/PA/POLYETHYLENE BAG MACHINE OPERATOR, agreed w/resident/PA/POLYETHYLENE BAG MACHINE OPERATOR, discussed with family, reviewed EMR data (avail), discussed with nursing, discussed with case mgmt, reviewed images Attending Assessment/Plan: Problem List: 1) Syncope 2/2 UTI/dehydration 2) Sepsis of complicated UTI possible stent. 3) Compression fracture at the level of L2 4) DALIA improved 5) Rheumatoid Arthritis on MTX and daily Prednisone 6) Hypothyroidism 7) DMT2 on Levemir and Metformin 8) H/O PE, was on Eliquis 9) H/O Osteoporosis per patient, not currently under treatment Plan: * Change ceftriaxone to PO abx, urine cultures and blood cultures negative so far. f/u urology o/p has stent placed 2 weeks ago. tried to call urology multiple times during the hospital stay. * Pain managment of fracture with Percocet and Dilaudid, IR for vertebral augmentation. Constipation added colace, miralax, resolved, had bowel movement. * resume home Lisinopril and MTX * Continue Daily Prednisone for now. Patient will need further workup with respect to management of osteoporosis including bisphosphonates as o/p. d/wed patient. * Fingersticks, Levemir and Novolog sliding scale * stopped eliquis , d/wed patient, in verbal agreement. * DVT PPx * Pain Management: Percocet and Dilaudid per pain scale * Code Status: Full Code Patient for kyphopolasty today and depending on procedural clearance, can be discharged today with pain control and rehab.
[2016-12-14 08:20] VITALS: BP 110/60
[2016-12-14] MEDS ORDERED: ELIQUIS5 M1 PO (12:15)
[2016-12-14 16:17] VITALS: BP 116/57
[2016-12-14] MEDS ORDERED: DOCUSATE SODIU100 M3 PO (16:26)
[2016-12-14] MEDS ORDERED: GABAPENTIN300 M2 PO (16:26)
[2016-12-14] MEDS ORDERED: PERCOCET 5-3251 EACH PO (16:27)
[2016-12-14] MEDS ORDERED: SENNA PLUS TAB1 EACH PO (16:27)
[2016-12-14] MEDS ORDERED: SULFAMETHOXAZO1 EAC1 PO (16:28)
[2016-12-14 16:32] VITALS: BP 116/57
--- NOTE | 2016-12-14 17:09 | INTERVENTIONAL RADIOLOGY RPT ---
PROCEDURE: Fluoroscopically guided L2 vertebral augmentation CLINICAL HISTORY: 66-year-old female with osteoporosis on chronic steroids for rheumatoid arthritis. Patient suffered an acute L2 compression deformity after a fall approximately one week ago. Patient is in severe pain and unable to perform activities of daily living. Vertebral augmentation requested. INTERVENTIONAL RADIOLOGIST: Anton Hernandez M.D. COMPARISON IMAGING: MRI lumbar spine 12/10/2016, CT abdomen pelvis 12/09/2016 and 11/19/2016 SEDATION: Sedation/anesthesia was provided by the anesthesia department. Please see their note for detailed findings. 1% lidocaine was used for local anesthetic. FLUOROSCOPIC TIME: 8.3 minutes TECHNIQUE: Informed consent was obtained from the patient prior to the procedure. During this process, the procedure and potential alternatives were explained to the patient and her son along with the intended outcome and benefits. The risks of the procedure, including the possibility of an unsuccessful procedure, as well as the risk of not doing the procedure were discussed. The patient was given the opportunity to ask questions regarding the procedure and appeared competent to make medical decisions. A signed consent form which documents this discussion was placed in the medical record. The patient was placed prone on the fluoroscopic table. The right back was prepped and draped in usual sterile fashion. A timeout procedure was performed. A small skin neck was made at the appropriate level after PA and lateral fluoroscopy was utilized for targeting of the abnormal vertebral body. A transpedicular approach was utilized. Triangulation was performed. A standard Dfine 10.5-gauge needle introducer cannula was utilized. This was placed through the pedicle. Great care was utilized to avoid adjacent structures. The posterior wall of the vertebral body was traversed. After final positioning of the working cannula under fluoroscopic guidance, the introducer 10.5-gauge needle stylette was removed. Under fluoroscopic guidance, an initial cavity was created within the vertebral body by inserting a straight hollow coring cement staging osteotome into the working cannula and then into the anterior third of the vertebral body. This allowed coring and removal of cancellous bone creating a cavity within the vertebral body. A larger directional staging osteotome was then inserted through the working cannula and across the midline to specific areas within the vertebral body as the cavity was enlarged. The articulated arm was then deployed to further enlarge the cavity. The device was then withdrawn into the working cannula rotated and reinserted and articulated multiple times to enlarge the existing cavity of the L2 vertebral body. The controller from the [employer] system was turned on. The warming cartridge, delivery cables and hydraulic assembly was connected to the controller. The bone cement was mixed and the cement cartridge was filled and attached to the warming cartridge. After removal of the introducer stylette, the locking delivery cannula was attached to the cement. This was then inserted through the working cannula and into the cavity created within the vertebral body. This was then locked in place with the working cannula to establish and stabilize its position. The bone cement was converted to a ultra-high viscosity, semi-solid material and was driven through the warming cartridge. The Ultra-high viscosity cement was delivered through the locking delivery cannula to fill the cavity created by the osteotome. The mass of the ultra high viscosity cement continued to grow at 1.3 cc/minute. This expanded the cavity size while filling it. The cement was allowed to interdigitate within the fractures within the vertebral body. The cement injection was terminated after the mass of Ultra-high viscosity cement was used to interdigitate L2 and adequately fill the cavity. The locking cannula was then removed. Great care was utilized to not displace cement during removal. Great care was also utilized to avoid passing the cement through the fractures into the disc spaces. Great care was also utilized to prevent cement from passing into the spinal canal cavity. A total of 5.5 mL of the cement was placed into the vertebral body. This was placed in the appropriate position across the midline. The introducer was placed into the cannula to tap out the remaining cement. The needle introducer cannula was then removed. Glue was placed over the wound site after good hemostasis was achieved through manual pressure. The patient tolerated the procedure well. The patient was discharged from the department in good condition after appropriate monitoring. FINDINGS: There is an L2 vertebral body fracture. The superior endplate is fractured. Successful L2 vertebral body vertebral augmentation. The bone cement appears in good position and across the midline using standard technique. COMPLICATIONS: None. IMPRESSION: Successful L2 vertebral body augmentation.
== END 2016-12-14 19:30 | DRG 981 ==
LOC: ENRESERVTM → ENRESERVDT → ERH 20:30 → ERHI 12-10 00:22 → 1NO 12-10 02:22
PROVIDERS: Internal Medicine; Physician Assistant Medical; Preventive Medicine Public Health & General Preventive Medicine; ADMIT Student in an Organized Health Care Education/Training Program
PROC: 5A09357 Assistance with Respiratory Ventilation, Less than 24 Consecutive Hours, Continuous Positive Airway Pressure (ICD-10-PCS; 2016-12-10)
PROC: 0QU03JZ Supplement Lumbar Vertebra with Synthetic Substitute, Percutaneous Approach (ICD-10-PCS; principal; 2016-12-14)
DX: T83.593A Infection and inflammatory reaction due to other urinary stents, initial encounter (principal); A41.9 Sepsis, unspecified organism; R65.20 Severe sepsis without septic shock; N17.9 Acute kidney failure, unspecified; M80.88XA Other osteoporosis with current pathological fracture, vertebra(e), initial encounter for fracture; N39.0 Urinary tract infection, site not specified; I10 Essential (primary) hypertension; E78.5 Hyperlipidemia, unspecified; E03.9 Hypothyroidism, unspecified; M06.9 Rheumatoid arthritis, unspecified; Z86.711 Personal history of pulmonary embolism; Z79.01 Long term (current) use of anticoagulants; K21.9 Gastro-esophageal reflux disease without esophagitis; N20.0 Calculus of kidney; E11.9 Type 2 diabetes mellitus without complications; E86.0 Dehydration; T36.1X5A Adverse effect of cephalosporins and other beta-lactam antibiotics, initial encounter; L27.1 Localized skin eruption due to drugs and medicaments taken internally; F17.210 Nicotine dependence, cigarettes, uncomplicated; Z79.4 Long term (current) use of insulin
CPT/HCPCS: 04007; 1NP; 72148; 74176; 81001; 82436; 87040; 87086; 93005; 93010; 93306; 96361; 96374; 96375; 96376; 97110-GO; 97161-GP; 97530-GO; 97530-GP; J0131; J0171; J0696; J1644; J7512

== ENCOUNTER → 2017-01-22 | Day surgery (SDC) | payer OTHER ==
[~2017-01-22] VITALS: Ht 162.6 cm; Wt 77.1 kg
[~2017-01-22] MED LIST changes: +DOCUSATE SODIU100 M3 PO; +GABAPENTIN300 M2 PO; +SULFAMETHOXAZO1 EAC1 PO
--- NOTE | 2017-01-22 10:22 | Operative Report ---
Operative/Inv Procedure Report Surgery Date: 01/22/17 Name of Procedure: RIGHT RENAL ESWL: CYSTO. LEFT STENT REMOVAL Pre-Operative Diagnosis: RIGHT STONE. LEFT STENT Post-Operative Diagnosis: SAME Estimated Blood Loss: scant Surgeon/Hydro Pneumatic Tester: MOLLY PALACIOS MD Anesthesia: moderate sedation Specimens: LEFT STENT Complications: NONE Operative/Procedure Note Note: The patient was taken to the operating room placed on the OR table in supine position. Timeout was performed, with the patient awake, in order to confirm correct procedure, laterality, anesthesia, and other pertinent perioperative information. After adequate anesthesia and antibiotics, the patient was then positioned over the ESWL table cutout overlying the treatment dome. Fluoroscopy , using AP and oblique views, as well as renal ultrasound, or performed in order to locate the stone. The position of the stone was optimized and positioned in the middle of the ESWL crosshairs. The stone was measured to be approximately 7 mm in size. ESWL was initiated at low power, and after 200 shockwaves delivered , noting the patient's tolerance to the shockwaves, the power was increased to maximum. At the end of 2500 shockwaves, fluoroscopy confirms the change in consistency of the stone, indicating shattering of the stone. The patient tolerated this procedure well. The patient was then frog legged, draped and prepped in the usual surgical fashion. 22 [place] cystoscope sheath with 30 angle lens was inserted without difficulty. Upon entering the bladder, the bladder was noted to be free of tumor free of stone. The left orifice was intubated with a double J stent, which was grasped with alligator forceps. The cystoscope along with entire stent was removed without difficulty. The patient tolerated the procedures well, and was taken to the recovery room in satisfactory condition. The patient is discharged home with pain medication, and follow-up instructions with in 2-3 weeks' time. Discharge Disposition: Same Day Admissions Additional Comments: F/U KUB AND RENAL U/S IN 2-4 WEEKS ORDERED. CC: MOLLY PALACIOS MD
== END ==
LOC: STS 12-25 07:00
DX: N20.0 Calculus of kidney (principal); I10 Essential (primary) hypertension; E11.9 Type 2 diabetes mellitus without complications; Z79.84 Long term (current) use of oral hypoglycemic drugs
CPT/HCPCS: J1580; J2250